=== PATIENT | female | born 1955 | race Caucasian/White ===

== ENCOUNTER → 2016-03-24 | Outpatient (CLI) | payer OTHER | LOC: MOB LAB 15:14 | PROVIDERS: ATTEND Student in an Organized Health Care Education/Training Program | DX: R10.2 Pelvic and perineal pain (principal) | CPT/HCPCS: 87077; 87088; 87186 ==

== ENCOUNTER 2016-03-30 13:54 | Inpatient (IN) | payer OTHER ==
[2016-03-30] MEDS ORDERED: MORPHINE SULFATE 2 MG/1 ML IVP ONE (14:05)
[2016-03-30] MEDS ORDERED: ONDANSETRON 4 MG/2 ML VIAL IVP ONE (14:05)
[2016-03-30] MEDS ORDERED: ASPIRIN 81 MG (BABY) CHEWABLE TABLET PO ONE ×2 (14:05→14:17)
[2016-03-30] MEDS ORDERED: LORazepam 2 MG/1 ML VIAL IVP ONE (14:05)
[2016-03-30] MEDS: NITROGLYCERIN 0.4 MG SL TAB (BOTTLE OF 3) SL ONE ×2 (14:06→14:17)
[2016-03-30] MEDS: Sodium Chloride 0.9% 1,000 ML PRIMARY IV ONE ×2 (14:06→14:50)
--- NOTE | 2016-03-30 14:11 | PDOC ---
Chest Pain HPI - General Chief Complaint: Chest Pain Stated Complaint: CHEST PAIN Date Seen by Provider: 03/30/16 Time Seen by Provider: 14:07 Source: Patient Exam Limitations: POSITIVE: No limitations Treatment Prior to Arrival: REPORTS: None Nurse's Notes Reviewed & Considered: Yes - History of Present Illness Initial Comments: Patient comes in today with substernal chest pain she describes as an elephant sitting on her chest. Patient with chest pain has been intermittent and escalating now with chest pressure that she states is approximately a 7/10 been unremitting for the last hour. She does have nausea but denies vomiting she did have an episode of diarrhea yesterday. He denies any shortness of breath, but does have cough. Body Location Affected: REPORTS: Chest Timing: REPORTS: Gradual, Intermittent, Getting Worse Duration: >24 hours Severity: Moderate Context: REPORTS: Rest, Activity, Exertion Quality: REPORTS: Pressure (States it feels like an elephant sitting on her chest.) Radiation: REPORTS: Jaw (L), Shoulder (L), Back Associated Symptoms: REPORTS: Nausea Modifying Factors: improves with: None Reported Similar Symptoms Previously: No Recently seen/treated/hospitalized: No Any Prior Injuries Related to Current Complaint?: No - Patient Home Medications Home Medications: Home Medications Lisinopril/Hydrochlorothiazide [Lisinopril-Hctz 20-12.5 Mg Tab] 1 tab PO DAILY 01/24/12 Pantoprazole Sodium [Protonix] 1 tab PO DAILY 01/24/12 Allopurinol 1 tab PO DAILY 11/06/13 Sertraline HCl [Zoloft] 1 tab PO DAILY tab 02/13/14 Dicyclomine HCl [Bentyl] 1 tab PO TID 11/20/14 Potassium Chloride [Klor-Con Tab] 1 tab PO DAILY 11/20/14 Gabapentin 1 cap PO DAILY cap 12/25/14 Oxybutynin Chloride [Oxybutynin Chloride Er] 15 mg PO DAILY tab 12/07/15 Diphenoxylate HCl/Atropine [Lomotil 2.5-0.025 Mg Tablet] 5 mg PO BID PRN #60 tab 01/15/16 Saxagliptin HCl [Onglyza] 2.5 mg PO DAILY #30 tab 01/15/16 Zolpidem Tartrate [Ambien] 1 tab PO QHS #30 12/06/16 Celecoxib [Celebrex] 1 cap PO DAILY #30 cap 03/24/16 Nitrofurantoin Macrocrystal [Nitrofurantoin] 100 mg PO BID #14 cap 03/26/16 - Patient Allergies Allergies/Adverse Reactions: Allergies Allergy/AdvReac Type Severity Reaction Status Date / Time No Known Allergies Allergy Verified 03/30/16 14:03 Past Medical History - heen HEENT History: Denies History Cardiovascular History: Hypertension, Hyperlipidemia Respiratory History: Denies History Gastrointestinal History: GERD Additional Gastrointestinal History: IRRITABLE BOWEL SYNDROME/OBESITY/DIABETIC GASTROPARESIS Genitourinary History: Recurrent UTI, Kidney Stones Endocrine History: Type 2 Diabetes (oral) Musculoskeletal History: Gout, Other (please comment) Prosthesis or Implant: Yes (LEFT HEEL SCREWS, LEFT KNEE ACL) Additional Musculoskeletal History: 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 Neurological History: Other (please comment) Additional Neurological History: PERIPHERAL SENSORY NEUROPATHY Blood Disorders: Denies History Psychiatric History: Depression, Anixety Disorders History of Sexually Transmitted Diseases: No Cancer History: Denies History History of MDRO: No History of Other Communicable Diseases: No Alcohol Use: Rarely Substance Use Type: None Previous Surgical History: Yes Type / Date of Surgery: APPY/HYSTERECTOMY/BILAT KNEE SCOPES/BILAT FOOT SX/ ACHILLES TENDON REPAIR/TONSILLECTOMY/R OOPHORECTOMY/LEFT KNEE ACL Anesthesia Reactions: No Malignant Hyperthermia: No Significant Family History: Diabetes ROS - Limitations ROS Limitations: No Limitations Constitution: REPORTS: Denies Symptoms Cardiovascular: REPORTS: Chest Pain Respiratory: REPORTS: Cough Non Productive Neurological: REPORTS: Denies Neuro Symptoms Gastrointestinal: REPORTS: Nausea Endocrine: REPORTS: Denies Symptoms Musculoskeletal: REPORTS: Denies MS Symptoms Genitourinary: REPORTS: Denies Symptoms Eyes: REPORTS: Denies Symptoms ENT: REPORTS: Denies Symptoms Skin: REPORTS: Denies Skin Symptoms Lympathic: REPORTS: Denies Lympathic Symptoms Immunologic: POSITIVE: Denies Symptoms Psychiatric: POSITIVE: Denies Psych Symptoms Chest Pain PE - General Appearance General Appearance: REPORTS: Alert, Cooperative, No Acute Distress, No Evidence of Trauma, Anxious - HEENT HEENT: POSITIVE: Head Inspection Nml, Eyes Inspection Nml, Ears Inspection Nml, Nose Inspection Nml, PERRL, EOMI - Neck Neck: REPORTS: Normal Inspection - Respiratory Respiratory: REPORTS: No Respiratory Distress, Breath Sounds Normal, Chest Non- Tender - Cardiovascular Cardiovascular: REPORTS: Regular Rate and Rhythm, Heart Sounds Normal - Abdomen Abdomen: Soft: (All Quadrants), Normal Bowel Sounds: (All Quadrants), Denies Tenderness: (All Quadrants) - Skin Skin: REPORTS: Intact, Normal For Race, Warm, Dry, No Rash - Extremities Extremity: Non-Tender: (All Extremities), Normal ROM: (All Extremities), Normal Inspection: (All Extremities) - Neurological / Psychological Neurological: POSITIVE: Affect Apporpriate, Oriented X3 Chest Pain Progress - Results Reviewed by me Xrays/CTs/US Reviewed by me: Yes Discussed with Radiologist: No Lab Results Reviewed: Yes Lab Results:: Laboratory Results 03/30/16 Range/Units 14:06 WBC 12.51 H (4.8-10.8) 10^3/uL RBC 5.91 H (4.20-5.40) 10^6/uL Hgb 17.0 H (12.0-16.0) g/dL Hct 50.8 H (37.0-47.0) % MCV 86.0 (81-99) FL MCH 28.8 (27-31) PG MCHC 33.5 (33-37) g/dL RDW Std Deviation 51.3 H (39-50) fL RDW Coeff of Madan 16.4 H (11.5-14.5) % Plt Count 345 (140-350) 10*3/uL MPV 9.3 (7.4-12.2) FL Immature Gran % (Auto) 0.4 (0-5) % Neut % (Auto) 70.6 (50-80) % Lymph % (Auto) 16.6 (10-50) % [place] % (Auto) 6.2 (5-15) % Eos % (Auto) 5.9 (0-8) % Baso % (Auto) 0.3 (0-1) % Immature Gran # (Auto) 0.05 10*3/UL Neut # (Auto) 8.82 10*3/UL Lymph # (Auto) 2.08 10*3/uL [place] # (Auto) 0.78 (0.3-0.8) 10*3/UL Eos # (Auto) 0.74 10*3/UL Baso # (Auto) 0.04 10*3/UL WBC Morphology Comment Normal morphology (NORM) Plt Morphology Comment Normal morphology (NORM) RBC Morph Comment Normal morphology (NORM) D-Dimer 0.96 H (0.00-0.59) mg/L Sodium 139 (135-145) meq/L Potassium 3.8 (3.8-5.2) meq/L Chloride 103 (98-112) meq/L Carbon Dioxide 23 (23-33) meq/L Anion Gap 13 (5-20) BUN 16 (7-22) mg/dL Creatinine 0.9 (0.50-1.20) mg/dL Estimated GFR > 60 (>60 ml/min/1.73m(2)) BUN/Creatinine Ratio 17.77 (6-20) Glucose 185 H (78-110) mg/dL Calculated Osmolality 293.0 H (267-292) mOsm/kg Calcium 9.9 (8.7-10.7) mg/dL Magnesium 1.9 (1.6-2.4) mg/dL Total Bilirubin 0.6 (0.3-1.2) mg/dL AST 19 (8-39) IU/L ALT 29 (9-52) IU/L Alkaline Phosphatase 106 (38-126) IU/L Troponin I < 0.012 (< 0.040) ng/mL Total Protein 7.5 (6.1-8.0) g/dL Albumin 4.5 (3.5-4.8) g/dL Globulin 3.1 (2.50-4.10) g/dL Albumin/Globulin Ratio 1.40 (1.3-2.0) mg/g EKG Interpreted/Reviewed By Me:: Yes (nsr) EKG Interpretation:: POSITIVE: Normal Sinus Rhythm, Normal Rate, Normal Intervals, Normal [place], Normal QRS, Normal ST/T - Patient's Progress Pain Medication Addressed: POSITIVE: Yes Re-Examine Time: 15:05 Status: POSITIVE: Improved Quality Measure Initiative: CP/AMI: POSITIVE: EKG, ASA - Consult Consult (If Yes, Name of Consulting MD & Time Called): Yes (Dr. Barrera) Consulting MD will see pt:: POSITIVE: [facility] Admit Counseled: POSITIVE: Patient, Family, RE: Lab Results, RE: Radiology Results, RE : DX Patient Care Time - Estimated PCT Patient Care Time (In Minutes): 45 Vital Signs - Recent Vital Signs Vital Signs: Vital Signs (Last 8 hours) Pulse Resp BP Pulse Ox 03/30/16 14:07 90 18 119/82 91 - VS Reviewed Vital Signs Reviewed: Yes Discharge Clinical Impression: Chest pain, Diabetes Discharge Disposition: Admit to Observation Condition: Stable Patient Instructions Given at Discharge: Chest Pain (ED) Date Decision to Admit to Inpatient: 03/30/16 Time Decision to Admit to Inpatient: 15:06
[2016-03-30 14:15] LABS: BASOPHILS # (AUTO) 0.04 10*3/UL; BASOPHILS % (AUTO) 0.3 % (0-1); EOSINOPHILS % (AUTO) 5.9 % (0-8); HEMATOCRIT 50.8 % (37.0-47.0); IMM GRAN % (AUTO) 0.4 % (0-5); IMM GRAN# (AUTO) 0.05 10*3/UL; LYMPHOCYTES # (AUTO) 2.08 10*3/uL; LYMPHOCYTES % (AUTO) 16.6 % (10-50); MEAN CORPUSCULAR HEMOGLOBIN 28.8 PG (27-31); MEAN CORPUSCULAR HGB CONC 33.5 g/dL (33-37); MEAN PLATELET VOLUME 9.3 FL (7.4-12.2); MONOCYTES # (AUTO) 0.78 10*3/UL (0.3-0.8); MONOCYTES % (AUTO) 6.2 % (5-15); NEUTROPHILS # (AUTO) 8.82 10*3/UL; NEUTROPHILS % (AUTO) 70.6 % (50-80); RDW COEFFICIENT OF VARIATION 16.4 % (11.5-14.5); RED BLOOD COUNT 5.91 10^6/uL (4.20-5.40); WHITE BLOOD COUNT 12.51 10^3/uL (4.8-10.8)
[2016-03-30 14:17] LABS: PLATELET MORPHOLOGY COMMENT NORMAL MORPHOLOGY (NORM)
[2016-03-30] MEDS ORDERED: NITROGLYCERIN 0.4 MG SL TAB (BOTTLE OF 3) SL ONE (14:33)
[2016-03-30 14:35] LABS: ASPARTATE AMINO TRANSFERASE 19 IU/L (8-39); BILIRUBIN,TOTAL 0.6 mg/dL (0.3-1.2); BLOOD UREA NITROGEN 16 mg/dL (7-22); BUN/CREATININE RATIO 17.77 (6-20); CALCIUM 9.9 mg/dL (8.7-10.7); CHLORIDE 103 meq/L (98-112); CREATININE 0.9 mg/dL (0.50-1.20); EST GLOMERULAR FILTRATION > 60 (>60 ml/min/1.73m(2)); GLUCOSE 185 mg/dL (78-110); MAGNESIUM 1.9 mg/dL (1.6-2.4); POTASSIUM 3.8 meq/L (3.8-5.2); SODIUM 139 meq/L (135-145); TOTAL PROTEIN 7.5 g/dL (6.1-8.0)
[2016-03-30 14:51] LABS: FREE T4 (FREE THYROXINE) 1.27 ng/dL (0.93-1.71)
[2016-03-30 15:03] LABS: PROTHROMBIN TIME 9.4 secs (9.7-11.4)
--- NOTE | 2016-03-30 15:19 | PDOC ---
History and Physical - History of Present Illness History of Present Illness: This very nice 60-year-old female with past medical history significant for diabetes and gout comes to the ER today because of the chest pain which is described as an elephant sitting on her chest is been intermittent over the last few days but now is getting worse and the was 7 out of 10 when she was seen in the ER and then improved positive nausea no radiating to arm jaw or neck CT scan was negative for pulmonary embolus or pneumonia but did show pulmonary hypertension she is been complaining of nausea and pain in the epigastric area especially when she eats fatty foods this could also be related to gallbladder disease Past Medical History Medical History: 1. Hypertension. 2. Diabetes. 3. Gout. 4. Peripheral neuropathy Surgical History: 1. Hysterectomy. 2. Arthroscopic knee surgeries. 3. Tonsillectomy. 4. Appendectomy. 5. Unilateral oophorectomy. 6. Achilles tendon repair Pertinent Family History: Father had myocardial infarction Tobacco Use: Current Every Day Smoker Substance Use Type: None Medication / Allergies Home Medications: Home Medications Medication Instructions Recorded Confirmed Type Lisinopril/Hydrochlorothiazide 1 tab PO DAILY 01/24/12 03/30/16 History [Lisinopril-Hctz 20-12.5 Mg Tab] Pantoprazole Sodium [Protonix] 1 tab PO DAILY 01/24/12 03/30/16 History Allopurinol 1 tab PO DAILY 11/06/13 03/30/16 History Sertraline HCl [Zoloft] 1 tab PO DAILY tab 02/13/14 03/30/16 History Dicyclomine HCl [Bentyl] 1 tab PO TID 11/20/14 03/30/16 History Potassium Chloride [Klor-Con Tab] 1 tab PO DAILY 11/20/14 03/30/16 History Gabapentin 1 cap PO DAILY cap 12/25/14 03/30/16 History Oxybutynin Chloride [Oxybutynin 15 mg PO DAILY tab 12/07/15 03/30/16 History Chloride Er] Diphenoxylate HCl/Atropine 5 mg PO BID PRN #60 tab 01/15/16 03/30/16 Clinic [Lomotil 2.5-0.025 Mg Tablet] Saxagliptin HCl [Onglyza] 2.5 mg PO DAILY #30 tab 01/15/16 03/30/16 Clinic Zolpidem Tartrate [Ambien] 1 tab PO QHS #30 02/05/16 03/30/16 [facility] Celecoxib [Celebrex] 1 cap PO DAILY #30 cap 03/24/16 03/30/16 [facility] Nitrofurantoin Macrocrystal 100 mg PO BID #14 cap 03/26/16 03/30/16 Clinic [Nitrofurantoin] Allergies/Adverse Reactions: Allergies Allergy/AdvReac Type Severity Reaction Status Date / Time No Known Allergies Allergy Verified 03/30/16 14:03 Review of Systems - Review of Systems All Systems: Reviewed & No Additional Complaints Except as Stated - Cardiovascular Cardiovascular: REPORTS: Chest Pain. DENIES: Syncope, Palpitations, Paroxysmal Nocturnal Dyspnea - Gastrointestinal Gastrointestinal / Abdominal: REPORTS: Nausea. DENIES: Vomiting - Genitourinary Genitourinary: DENIES: Negative System Review, Pain, Burning, Hematuria, Incontinence, Urgency, Hesitant Stream, Decreased Stream, Nocutria, Discharge, Sexual Dyfunction, Other, See HPI - Neurological Neurologic: DENIES: Negative System Review, Headache, Numbness/Paresthesia, Tremors, Weakness, Seizures, Head Trauma, LOC, Dizziness, Confusion, Memory Loss , Difficulty Walking, Incoordination, Other, See HPI Exam - Vitals Vital Signs: Vital Signs Pulse Rate [Telemetry] 90 Respiratory Rate 18 Blood Pressure [Left Arm] 119/82 Pulse Ox 91 Oxygen Delivery Method Room Air Height 5 ft 2 in Weight 104.326 kg - General General Appearance: POSITIVE: No Acute Distress, Cooperative - Head Head Exam: POSITIVE: Normal Inspection, Normocephalic - Eye Eye Exam: POSITIVE: Normal Appearance - Respiratory Respiratory Exam: POSITIVE: Clear to Auscultation - Bilaterally, Breathing Non Labored, Normal To Percussion - Cardiovascular Cardiovascular Exam: POSITIVE: RRR, No Murmur, No Clicks, No Gallops - GI/Abdominal GI/Abdominal Exam: POSITIVE: Normal Bowel Sounds, Non Distended, Soft - Extremities Extremities Exam: POSITIVE: No Clubbing Present, No Edema Present, No Cyanosis Present - Neurological Neurological Exam: POSITIVE: Alert, Oriented x 3, CN II-XII Intact, No Facial Droop - Psychiatric Psychiatric Exam: POSITIVE: Normal Affect, Normal Mood Results - Labs CBC and BMP: 03/30/16 14:06 03/30/16 14:06 Labs - Last 24 Hours: Laboratory Results 03/30/16 03/30/16 Range/Units 13:30 14:06 WBC 12.51 H (4.8-10.8) 10^3/uL RBC 5.91 H (4.20-5.40) 10^6/uL Hgb 17.0 H (12.0-16.0) g/dL Hct 50.8 H (37.0-47.0) % MCV 86.0 (81-99) FL MCH 28.8 (27-31) PG MCHC 33.5 (33-37) g/dL RDW Std Deviation 51.3 H (39-50) fL RDW Coeff of Madan 16.4 H (11.5-14.5) % Plt Count 345 (140-350) 10*3/uL MPV 9.3 (7.4-12.2) FL Immature Gran % (Auto) 0.4 (0-5) % Neut % (Auto) 70.6 (50-80) % Lymph % (Auto) 16.6 (10-50) % [place] % (Auto) 6.2 (5-15) % Eos % (Auto) 5.9 (0-8) % Baso % (Auto) 0.3 (0-1) % Immature Gran # (Auto) 0.05 10*3/UL Neut # (Auto) 8.82 10*3/UL Lymph # (Auto) 2.08 10*3/uL [place] # (Auto) 0.78 (0.3-0.8) 10*3/UL Eos # (Auto) 0.74 10*3/UL Baso # (Auto) 0.04 10*3/UL WBC Morphology Comment Normal morphology (NORM) Plt Morphology Comment Normal morphology (NORM) RBC Morph Comment Normal morphology (NORM) PT 9.4 L (9.7-11.4) secs INR 0.91 (0.00-5.90) N/A D-Dimer 0.96 H (0.00-0.59) mg/L Sodium 139 (135-145) meq/L Potassium 3.8 (3.8-5.2) meq/L Chloride 103 (98-112) meq/L Carbon Dioxide 23 (23-33) meq/L Anion Gap 13 (5-20) BUN 16 (7-22) mg/dL Creatinine 0.9 (0.50-1.20) mg/dL Estimated GFR > 60 (>60 ml/min/1.73m(2)) BUN/Creatinine Ratio 17.77 (6-20) Glucose 185 H (78-110) mg/dL Calculated Osmolality 293.0 H (267-292) mOsm/kg Calcium 9.9 (8.7-10.7) mg/dL Magnesium 1.9 (1.6-2.4) mg/dL Total Bilirubin 0.6 (0.3-1.2) mg/dL AST 19 (8-39) IU/L ALT 29 (9-52) IU/L Alkaline Phosphatase 106 (38-126) IU/L Troponin I < 0.012 (< 0.040) ng/mL Total Protein 7.5 (6.1-8.0) g/dL Albumin 4.5 (3.5-4.8) g/dL Globulin 3.1 (2.50-4.10) g/dL Albumin/Globulin Ratio 1.40 (1.3-2.0) mg/g TSH 5.37 H (0.2700-4.2000) uIU/mL Free T4 1.27 (0.93-1.71) ng/dL Assessment and Plan - Patient Problems (1) Chest pain Current Visit: Yes Status: Acute (2) Diabetes Current Visit: Yes Status: Acute (3) History of gout Current Visit: No Status: Acute (4) History of neuropathy Current Visit: No Status: Acute (5) Hypertension Current Visit: No Status: Acute - Assessment / Plan Additional Assessment/Plan Details: Chest painvery suggestive for coronary artery disease considering risk factors of diabetes and hypertension we will admit her for rule out order nuclear stress test for tomorrow if she rules out and also on echocardiogram because of her pulmonary hypertension finding on CT scan differential is gallbladder disease she does hurt epigastric area on physical exam I will order a CAT scan of her abdomen and pelvis later tonight we will hydrate her first since she got already contrast for the CT scan of the chest Diabetes continue usual medication check hemoglobin A1c Gout continue allopurinol She is on nitrofurantoin I will try to figure out why we will hold for now
--- NOTE | 2016-03-30 15:56 | DI ---
HISTORY: Chest pain with elevated d-dimer. COMPARISON: None. TECHNIQUE: Standard CT pulmonary angiogram axial and coronal reformatted images from the level the a ortic arch through the dome of the diaphragm with maximal contrast opacification of the pulmonary art eries. 342 images. FINDINGS: No large or occlusive pulmonary artery embolus identified. The right and left main pulmon jass artery are enlarged. No thoracic aortic aneurysm or dissection present. No evidence of right he art strain. The heart and pericardium are unremarkable. Prominent mediastinal and hilar lymphadenopathy is present, with large nodes seen in the AP window, r ight upper paratracheal station and right lung hilum. No axillary adenopathy seen. The lungs are clear with no focal airspace mass, consolidation or pneumothorax. No pleural effusions are present. Proximal airways are clear with no evident thickening or bronchiectasis. The liver is hypoattenuating. The remainder of the visualized abdominal organs are unremarkable. Mild senescent changes of the thoracic spine are present. The osseous structures are unremarkable wi thout fracture. IMPRESSION: 1. No evidence of acute pulmonary artery embolus. 2. Findings are suggestive of pulmonary artery hypertension. Recommend pulmonology consultation. 3. Nonspecific enlarged mediastinal and right hilar lymphadenopathy. No evidence of pulmonary parenc hymal mass or airspace consolidation. Recommend routine clinical follow up to evaluate for underlyin g systemic infectious, inflammatory or neoplastic cause.
[2016-03-30] MEDS ORDERED: NITROGLYCERIN 0.4 MG SL TAB (BOTTLE OF 3) SL PRN ×2 (16:17→19:01)
[2016-03-30] MEDS ORDERED: CALCIUM CARBONATE 500 MG (TUMS) CHEWABLE TABLET PO PRN (16:17)
[2016-03-30] MEDS ORDERED: ZOLPIDEM 10 MG TABLET PO SCH (16:17)
[2016-03-30] MEDS ORDERED: ONDANSETRON 4 MG/2 ML VIAL IVP PRN (16:17)
--- NOTE | 2016-03-30 16:25 | DI ---
HISTORY: Chest pain. COMPARISON: Pulmonary artery CT from earlier the same day (03/30/2016). FINDINGS: Portable chest radiograph, compared to CT PA performed the same day, demonstrates the lung s to be adequately expanded without evidence of pneumothorax, pleural effusion, or focal airspace mas s or consolidation. The cardiac silhouette appears enlarged, possibly related to technique. The pro ximal pulmonary vascularity is also enlarged. No acute bony abnormality is seen. IMPRESSION: 1. No evidence of mass or airspace consolidation. Suggestion of enlarged cardiac silhouette may be i n part related to technique. Enlarged bilateral proximal pulmonary arteries, which may be seen in th e clinical setting of pulmonary artery hypertension. For persistent concern, consider PA and lateral chest radiographs.
[2016-03-30] MEDS: HEPARIN 5000 UNIT/1 ML SUBCUT SCH (17:47)
--- NOTE | 2016-03-30 19:04 | EKG ---
[address] [place] [id number] Measurements Intervals [place] Rate: 90 P: 21 [place]: 167 QRS: 26 QRSD: 85 T: 53 QT: 366 QTc: 414 Interpretive Statements SINUS RHYTHM INTERPRETATION BASED ON A DEFAULT AGE OF 40 YEARS Compared to ECG 01/11/2016 13:15:13 Myocardial infarct finding no longer present and no acute injury pattern. Electronically Signed On 03-31-16 08:25:12 MST by Yassine Griffin MD [email or web address]
--- NOTE | 2016-03-30 20:04 | EKG ---
[address] [place] [address] Measurements Intervals [place] Rate: 84 P: 25 [place]: 175 QRS: 29 QRSD: 82 T: 67 QT: 376 QTc: 417 Interpretive Statements SINUS RHYTHM NONSPECIFIC T-WAVE ABNORMALITY (consider hypokalemia or hypocalcemia or ischemia) Compared to ECG 03/30/2016 14:00:46 T-wave abnormality now present Electronically Signed On 03-31-16 08:26:19 MST by Yassine Griffin MD [email or web address]
[2016-03-30] MEDS: ZOLPIDEM 10 MG TABLET PO SCH (21:25)
[2016-03-30] MEDS: DICYCLOMINE 20 MG TABLET PO SCH (21:25)
--- NOTE | 2016-03-30 22:46 | DI ---
HISTORY: Upper abdominal pain. TECHNIQUE: Contiguous transaxial computed tomographic images were obtained of the abdomen and pelvis per routine protocol with IV contrast. Coronal and sagittal reformat images were performed. COMPARISON: None. FINDINGS: LUNG BASES: There is ground glass opacity within the lower lobes with interlobular septal thickening . INFERIOR MEDIASTINUM: Unremarkable. LIVER: Hepatic steatosis. GALLBLADDER AND BILE DUCTS: Gallbladder is normal in appearance with no gallbladder wall thickening or pericholecystic fluid. No biliary dilatation. SPLEEN: Normal in size and attenuation with no focal abnormalities. PANCREAS: Normal in size and attenuation with no focal abnormalities. ADRENALS: There is a 1.7cm left adrenal mass which is likely an adrenal adenoma. : There is a 1.3cm low density lesion within the right kidney which is likely a cyst. No evidence of urinary obstruction or obstructing urinary calculi. Ureters are normal throughout their course. Urinary bladder is within normal limits. GI: There is diverticulosis of the colon without diverticulitis. No evidence of bowel obstruction or focal inflammation. No focal bowel wall thickening. No findings to suggest appendicitis. PELVIS: There are mildly enlarged pelvic side wall lymph nodes. VESSELS: Aorta is normal in size with no evidence of aneurysm or rupture. BONES: No acute bony abnormality. No suspicious osteolytic or osteoblastic lesion. SOFT TISSUES: Unremarkable. IMPRESSION: 1. No acute abdominal or pelvic process identified. 2. There is diverticulosis of the colon without diverticulitis. 3. Left adrenal nodule is likely an adenoma. 4. Hepatic steatosis. 5. Probable lower lobe pulmonary edema. NOTIFICATION: The above findings were phoned to Karena Mccarthy in the ER Department on 03/31/2016 a t 12:51am EST.
[2016-03-31] MEDS: GABAPENTIN 300 MG CAPSULE PO SCH ×2 (00:34→20:50)
[2016-03-31] MEDS: HEPARIN 5000 UNIT/1 ML SUBCUT SCH ×4 (00:34→23:48)
[2016-03-31] MEDS: Sertraline Tab 50 MG TAB PO SCH ×2 (00:34→20:49)
[2016-03-31 01:19] LABS: CARDIAC CK 29 IU/L (30-135)
[2016-03-31 01:33] LABS: TROPONIN I < 0.012 ng/mL (< 0.040)
[2016-03-31 06:25] LABS: BASOPHILS # (AUTO) 0.03 10*3/UL; BASOPHILS % (AUTO) 0.3 % (0-1); EOSINOPHILS % (AUTO) 6.8 % (0-8); HEMATOCRIT 47.6 % (37.0-47.0); IMM GRAN % (AUTO) 0.5 % (0-5); IMM GRAN# (AUTO) 0.06 10*3/UL; LYMPHOCYTES # (AUTO) 1.54 10*3/uL; LYMPHOCYTES % (AUTO) 13.8 % (10-50); MEAN CORPUSCULAR HEMOGLOBIN 27.8 PG (27-31); MEAN CORPUSCULAR HGB CONC 31.5 g/dL (33-37); MEAN PLATELET VOLUME 9.5 FL (7.4-12.2); MONOCYTES # (AUTO) 0.75 10*3/UL (0.3-0.8); MONOCYTES % (AUTO) 6.7 % (5-15); NEUTROPHILS # (AUTO) 8.03 10*3/UL; NEUTROPHILS % (AUTO) 71.9 % (50-80); RDW COEFFICIENT OF VARIATION 16.4 % (11.5-14.5); RED BLOOD COUNT 5.39 10^6/uL (4.20-5.40); WHITE BLOOD COUNT 11.17 10^3/uL (4.8-10.8)
[2016-03-31 06:32] LABS: PLATELET MORPHOLOGY COMMENT NORMAL MORPHOLOGY (NORM)
[2016-03-31 06:37] LABS: ASPARTATE AMINO TRANSFERASE 12 IU/L (8-39); BILIRUBIN,TOTAL 0.3 mg/dL (0.3-1.2); BLOOD UREA NITROGEN 14 mg/dL (7-22); BUN/CREATININE RATIO 15.55 (6-20); CALCIUM 9.4 mg/dL (8.7-10.7); CHLORIDE 106 meq/L (98-112); CREATININE 0.9 mg/dL (0.50-1.20); EST GLOMERULAR FILTRATION > 60 (>60 ml/min/1.73m(2)); GLUCOSE 133 mg/dL (78-110); HDL CHOLESTEROL 32 mg/dL (40-150); POTASSIUM 4.6 meq/L (3.8-5.2); SODIUM 140 meq/L (135-145); TOTAL PROTEIN 5.8 g/dL (6.1-8.0)
[2016-03-31 06:51] LABS: TRIGLYCERIDES 476 mg/dL (44-200)
[2016-03-31 08:56] LABS: HEMOGLOBIN A1C 7.91 % (4.2-6.0); MEAN BLOOD GLUCOSE (CALC) 177.403 mg/dL
[2016-03-31] MEDS ORDERED: Sertraline Tab 50 MG TAB PO SCH (09:00)
[2016-03-31] MEDS ORDERED: GABAPENTIN 300 MG CAPSULE PO SCH (09:00)
[2016-03-31] MEDS ORDERED: OXYBUTYNIN CHLORIDE 15 MG PO SCH (09:00)
[2016-03-31] MEDS: HYDROCHLOROTHIAZIDE 12.5 MG CAPSULE PO SCH (09:39)
[2016-03-31] MEDS: LISINOPRIL 20 MG TABLET PO SCH (09:39)
[2016-03-31] MEDS: PANTOPRAZOLE 40 MG TABLET PO SCH (09:39)
[2016-03-31] MEDS: DICYCLOMINE 20 MG TABLET PO SCH ×2 (09:40→15:09)
[2016-03-31] MEDS: ALLOPURINOL 300 MG TABLET PO SCH (09:40)
[2016-03-31] MEDS: Potassium Chloride Tab 10 MEQ TAB PO SCH (09:40)
--- NOTE | 2016-03-31 11:09 | PDOC(PROG) ---
Interval History: No chest pain today no shortness of breath CT scan of the abdomen and pelvis showed no gallbladder disease she does state that she had the UTI before she came into the hospital they were treating her with nitrofurantoin but this was not helping at all and the burning continued and it still funes when she urinates. Chest pain resolved stress test in progress Objective : Data - Labs CBC and BMP: 03/31/16 06:05 03/31/16 06:05 Labs - Last 24 Hours: Laboratory Results 03/30/16 03/31/16 03/31/16 Range/Units 19:08 01:11 05:00 WBC (4.8-10.8) 10^3/uL RBC (4.20-5.40) 10^6/uL Hgb (12.0-16.0) g/dL Hct (37.0-47.0) % MCV (81-99) FL MCH (27-31) PG MCHC (33-37) g/dL RDW Std Deviation (39-50) fL RDW Coeff of Madan (11.5-14.5) % Plt Count (140-350) 10*3/uL MPV (7.4-12.2) FL Immature Gran % (Auto) (0-5) % Neut % (Auto) (50-80) % Lymph % (Auto) (10-50) % [place] % (Auto) (5-15) % Eos % (Auto) (0-8) % Baso % (Auto) (0-1) % Immature Gran # (Auto) 10*3/UL Neut # (Auto) 10*3/UL Lymph # (Auto) 10*3/uL [place] # (Auto) (0.3-0.8) 10*3/UL Eos # (Auto) 10*3/UL Baso # (Auto) 10*3/UL WBC Morphology Comment (NORM) Plt Morphology Comment (NORM) RBC Morph Comment (NORM) D-Dimer (0.00-0.59) mg/L Sodium (135-145) meq/L Potassium (3.8-5.2) meq/L Chloride (98-112) meq/L Carbon Dioxide (23-33) meq/L Anion Gap (5-20) BUN (7-22) mg/dL Creatinine (0.50-1.20) mg/dL Estimated GFR (>60 ml/min/1.73m(2)) BUN/Creatinine Ratio (6-20) Glucose (78-110) mg/dL Mean Blood Glucose 177.403 mg/dL Hemoglobin A1c 7.91 H (4.2-6.0) % Calculated Osmolality (267-292) mOsm/kg Calcium (8.7-10.7) mg/dL Total Bilirubin (0.3-1.2) mg/dL AST (8-39) IU/L ALT (9-52) IU/L Alkaline Phosphatase (38-126) IU/L Total Creatine Kinase 29 L (30-135) IU/L Troponin I < 0.012 < 0.012 (< 0.040) ng/mL NT-Pro-B Natriuret Pep (0-125) PG/ML Total Protein (6.1-8.0) g/dL Albumin (3.5-4.8) g/dL Globulin (2.50-4.10) g/dL Albumin/Globulin Ratio (1.3-2.0) mg/g Triglycerides (44-200) mg/dL Cholesterol (120-200) mg/dL LDL Cholesterol, Calc mg/dL VLDL Cholesterol (0-40) mg/dL HDL Cholesterol (40-150) mg/dL Cholesterol/HDL Ratio (0-4.0) RATIO 03/31/16 Range/Units 06:05 WBC 11.17 H (4.8-10.8) 10^3/uL RBC 5.39 (4.20-5.40) 10^6/uL Hgb 15.0 (12.0-16.0) g/dL Hct 47.6 H (37.0-47.0) % MCV 88.3 (81-99) FL MCH 27.8 (27-31) PG MCHC 31.5 L (33-37) g/dL RDW Std Deviation 52.1 H (39-50) fL RDW Coeff of Madan 16.4 H (11.5-14.5) % Plt Count 316 (140-350) 10*3/uL MPV 9.5 (7.4-12.2) FL Immature Gran % (Auto) 0.5 (0-5) % Neut % (Auto) 71.9 (50-80) % Lymph % (Auto) 13.8 (10-50) % [place] % (Auto) 6.7 (5-15) % Eos % (Auto) 6.8 (0-8) % Baso % (Auto) 0.3 (0-1) % Immature Gran # (Auto) 0.06 10*3/UL Neut # (Auto) 8.03 10*3/UL Lymph # (Auto) 1.54 10*3/uL [place] # (Auto) 0.75 (0.3-0.8) 10*3/UL Eos # (Auto) 0.76 10*3/UL Baso # (Auto) 0.03 10*3/UL WBC Morphology Comment Normal morphology (NORM) Plt Morphology Comment Normal morphology (NORM) RBC Morph Comment Normal morphology (NORM) D-Dimer 0.71 H (0.00-0.59) mg/L Sodium 140 (135-145) meq/L Potassium 4.6 (3.8-5.2) meq/L Chloride 106 (98-112) meq/L Carbon Dioxide 24 (23-33) meq/L Anion Gap 10 (5-20) BUN 14 (7-22) mg/dL Creatinine 0.9 (0.50-1.20) mg/dL Estimated GFR > 60 (>60 ml/min/1.73m(2)) BUN/Creatinine Ratio 15.55 (6-20) Glucose 133 H (78-110) mg/dL Mean Blood Glucose mg/dL Hemoglobin A1c (4.2-6.0) % Calculated Osmolality 292.0 (267-292) mOsm/kg Calcium 9.4 (8.7-10.7) mg/dL Total Bilirubin 0.3 (0.3-1.2) mg/dL AST 12 (8-39) IU/L ALT 28 (9-52) IU/L Alkaline Phosphatase 87 (38-126) IU/L Total Creatine Kinase (30-135) IU/L Troponin I < 0.012 (< 0.040) ng/mL NT-Pro-B Natriuret Pep 48.5 (0-125) PG/ML Total Protein 5.8 L (6.1-8.0) g/dL Albumin 3.5 (3.5-4.8) g/dL Globulin 2.3 L (2.50-4.10) g/dL Albumin/Globulin Ratio 1.50 (1.3-2.0) mg/g Triglycerides 476 H (44-200) mg/dL Cholesterol 213 H (120-200) mg/dL LDL Cholesterol, Calc 85.800 mg/dL VLDL Cholesterol 95 H (0-40) mg/dL HDL Cholesterol 32 L (40-150) mg/dL Cholesterol/HDL Ratio 6.65 H (0-4.0) RATIO Objective : Exam - General General Appearance: Cooperative - Respiratory Respiratory Exam: Clear to Auscultation - Bilaterally, Breathing Non Labored, Normal To Percussion - Cardiovascular Cardiovascular Exam: RRR, No Murmur, No Clicks - GI/Abdominal GI/Abdominal Exam: Non Tender, Non Distended, Soft - Extremities Extremities Exam: No Clubbing Present, No Edema Present - Neurological Neurological Exam: Alert, Oriented x 3 Assessment and Plan - Patient Problems (1) Chest pain Current Visit: Yes Status: Acute (2) Diabetes Current Visit: Yes Status: Acute (3) History of gout Current Visit: No Status: Acute (4) History of neuropathy Current Visit: No Status: Acute (5) Hypertension Current Visit: No Status: Acute - Assessment / Plan Additional Assessment/Plan Details: Chest painthis could represent coronary artery disease stress test in progress negative troponins negative BnP Diabeteshemoglobin A1c 7.9 Dyslipidemia elevated triglycerides around 400 Generalized weakness consult PTOT Hypertensioncontinue current meds
[2016-03-31] MEDS: MORPHINE SULFATE 2 MG/1 ML IV PRN ×3 (12:37→23:48)
[2016-03-31] MEDS: SAXAGLIPTIN HCL 2.5 MG PO SCH ×2 (12:41→14:45)
[2016-03-31] MEDS: cefTRIAXone Inj 2 GM in Sodium Chloride 0.9% 100 ML IV SCH (14:43)
[2016-03-31] MEDS: OXYBUTYNIN CHLORIDE 10 MG PO SCH (14:45)
[2016-03-31] MEDS ORDERED: DICYCLOMINE 20 MG TABLET PO PRN (15:16)
[2016-03-31] MEDS ORDERED: KETOROLAC 15 MG/1 ML VIAL IVP SCH (17:30)
[2016-03-31] MEDS: KETOROLAC 15 MG/1 ML VIAL IVP PRN (18:41)
[2016-03-31] MEDS: NORMAL SALINE 10 ML SYRINGE FLUSH IVP PRN ×2 (19:57→23:49)
[2016-03-31] MEDS: ZOLPIDEM 10 MG TABLET PO SCH (20:49)
[2016-04-01 05:57] LABS: BASOPHILS # (AUTO) 0.03 10*3/UL; BASOPHILS % (AUTO) 0.3 % (0-1); EOSINOPHILS % (AUTO) 8.5 % (0-8); HEMATOCRIT 45.3 % (37.0-47.0); HEMOGLOBIN 14.4 g/dL (12.0-16.0); IMM GRAN % (AUTO) 0.6 % (0-5); IMM GRAN# (AUTO) 0.07 10*3/UL; LYMPHOCYTES # (AUTO) 2.25 10*3/uL; MEAN CORPUSCULAR HGB CONC 31.8 g/dL (33-37); MEAN PLATELET VOLUME 9.5 FL (7.4-12.2); MONOCYTES # (AUTO) 0.96 10*3/UL (0.3-0.8); MONOCYTES % (AUTO) 8.5 % (5-15); NEUTROPHILS % (AUTO) 62.1 % (50-80); RDW COEFFICIENT OF VARIATION 16.3 % (11.5-14.5); RED BLOOD COUNT 5.15 10^6/uL (4.20-5.40); WHITE BLOOD COUNT 11.27 10^3/uL (4.8-10.8)
[2016-04-01 06:01] LABS: PLATELET MORPHOLOGY COMMENT NORMAL MORPHOLOGY (NORM)
[2016-04-01 06:12] LABS: ASPARTATE AMINO TRANSFERASE 15 IU/L (8-39); BILIRUBIN,TOTAL 0.3 mg/dL (0.3-1.2); BLOOD UREA NITROGEN 20 mg/dL (7-22); BUN/CREATININE RATIO 22.22 (6-20); CALCIUM 9.2 mg/dL (8.7-10.7); CHLORIDE 104 meq/L (98-112); CREATININE 0.9 mg/dL (0.50-1.20); EST GLOMERULAR FILTRATION > 60 (>60 ml/min/1.73m(2)); GLUCOSE 133 mg/dL (78-110); POTASSIUM 4.6 meq/L (3.8-5.2); SODIUM 138 meq/L (135-145)
--- NOTE | 2016-04-01 10:00 | STRESSTEST ---
[facility] Interpretive Statements This is 60 YO female with several risk factors for heart disease, including smoking, DMII, HTN, high cholesterol, and family history of heart disease. PResented with chest pain and ruled out for LA. Now [place] scan stress test being done. Obesity too severe to do treadmill. Resting EKG, NSR. [place] scan stress test done and patient had some SOB, abdominal pain, all of which resolved. Some noise on tracing, but no major issues noted otherwise. Plan: review resting and stress images with radiology. [email or web address]
[2016-04-01] MEDS: HEPARIN 5000 UNIT/1 ML SUBCUT SCH ×2 (10:03→16:28)
[2016-04-01] MEDS: SAXAGLIPTIN HCL 2.5 MG PO SCH (10:03)
[2016-04-01] MEDS: PANTOPRAZOLE 40 MG TABLET PO SCH (10:04)
[2016-04-01] MEDS: ALLOPURINOL 300 MG TABLET PO SCH (10:04)
[2016-04-01] MEDS: HYDROCHLOROTHIAZIDE 12.5 MG CAPSULE PO SCH (10:04)
[2016-04-01] MEDS: Potassium Chloride Tab 10 MEQ TAB PO SCH (10:04)
[2016-04-01] MEDS: LISINOPRIL 20 MG TABLET PO SCH (10:04)
[2016-04-01] MEDS: OXYBUTYNIN CHLORIDE 10 MG PO SCH (10:04)
[2016-04-01 11:20] LABS: AMYLASE < 30 U/L (30-110)
[2016-04-01] MEDS ORDERED: CEPHALEXIN 500 MG CAPSULE PO ONE (11:26)
[2016-04-01] MEDS: cefTRIAXone Inj 2 GM in Sodium Chloride 0.9% 100 ML IV SCH (11:31)
[2016-04-01] MEDS: MORPHINE SULFATE 2 MG/1 ML IV PRN (11:45)
--- NOTE | 2016-04-01 15:52 | DI ---
2 DAY LEXISCAN STRESS & REST MYOCARDIAL PERFUSION SCANS, 03/31/2016-04/01/2016: Clinical History: Chest pain. Diabetes mellitus type 2, hypertension, smoker. Previous Exam: None at this facility. Monitoring Physician: Dr. Marcus Mohan. Dose: Stress dose: 36 mCi on 04/01/2016. Rest dose: 36 mCi on 03/31/2016. Quantitative Analysis: Edventures program with low dose limited CT chest scan attenuation correctio n. Exam Quality: Excellent. Rejected Beats: Stress = 0%; Rest = 2%. HR: Stress = 75-83 b/m; Rest = 61-6 8 b/m. Left ventricular chamber sizes are normal at stress and rest. Transient ischemic dilatation ratio is 0.80 (normal Marshall TID <= 1.22; normal Lexiscan TID <= 1.33). Stress LVEF: 80%; rest LVEF: 80%. Atten uated and attenuated scans show normal stress and rest myocardial perfusion, wall motion, and thicken ing. Limited CT scans of the heart show calcifications in the proximal and middle thirds of the LAD, in the proximal portion of the left circumflex artery, and in the proximal half of the right coronary artery. There are no lung nodules or enlarged nodes. Readin. Normal stress and rest left ventricular chamber size. Transient ischemic dilatation ratio is norm al at 0.80. 2. Normal stress and rest LVEF values of 80% each. 3. Normal stress and rest myocardial perfusion, wall motion, and thickening. 4. Coronary artery disease manifested by calcifications in the LAD, left circumflex artery, and the right coronary artery. No pulmonary nodules or adenopathy are identified.
[2016-04-01] MEDS: GEMFIBROZIL 600 MG TABLET PO SCH (16:28)
[2016-04-01 17:09] LABS: ABG BASE EXCESS -3 MMOL/L (-2-2); ABG HCO3 22 (22-26); ABG OXYGEN SATURATION 94 % (90-100); ABG PH 7.41 (7.35-7.45); ABG TCO2 23 MMOL/L (23-27); ALLEN TEST Y; COLLECTION SITE L RADIAL
[2016-04-01] MEDS: GABAPENTIN 300 MG CAPSULE PO SCH (20:47)
[2016-04-01] MEDS: Sertraline Tab 50 MG TAB PO SCH (20:47)
[2016-04-01] MEDS: ZOLPIDEM 10 MG TABLET PO SCH (20:47)
[2016-04-01] MEDS: HYDROcodone-APAP 7.5 MG-325 MG TABLET PO PRN (20:47)
[2016-04-01] MEDS: CEPHALEXIN 500 MG CAPSULE PO SCH (20:48)
[2016-04-01] MEDS ORDERED: LIDOCAINE HCL/PF 1% (10 MG/1 ML) - 2 ML AMP SUBCUT ONE (20:58)
[2016-04-01] MEDS ORDERED: [UNRECOGNIZED DRUG - OTHER] IM ONE (21:00)
[2016-04-01] MEDS ORDERED: ROPIVACAINE 0.2% IM ONE (21:00)
[2016-04-01] MEDS ORDERED: Lidocaine 1% 10 MG/ML - 20 ML VIAL SUBCUT ONE (21:24)
--- NOTE | 2016-04-01 22:53 | PDOC(PROG) ---
Date and Time of Service: 04/01/2016, 10:49 PM Interval History: Patient denies any chest pain. She states that she has continued abdominal pain that is vague and in the lower quadrants and stated that it felt like cramping related to a period. She had a hysterectomy in the past and denies any vaginal bleeding. She also complains of knee pain on the right side, and states that she's had long-standing knee pain for which she takes anti- inflammatories 4. She has been taking upwards of 16-20 ibuprofen per day. She states Aleve tears of her stomach. She also notes that her insurance has had some issues with medication prescription coverage and she was not able to afford her Celebrex which did not seem to give her abdominal pain. She is on a proton pump inhibitor daily and does not have any blood in her bowel movements. She notes that she's had intermittent, chronic diarrhea for upwards of the last 8 years with a colonoscopy in the past. She was told she had irritable bowel syndrome. Bentyl has been used but has not been controlling abdominal pain. The CT scan was negative for any acute intra-abdominal pathology. The patient overall is frustrated as she felt that she came in for complaints of abdominal pain but had a stress test worked up. She has pulmonary hypertension based on her workup thus far, probably related to sleep apnea which is undiagnosed at this time. Objective : Data - Labs CBC and BMP: 04/01/16 05:20 04/01/16 05:20 Labs - Last 24 Hours: Laboratory Results 04/01/16 Range/Units 16:54 ABG pH 7.41 (7.35-7.45) ABG pCO2 34 (34-38) MMHG ABG pO2 70 (65-75) MMHG ABG HCO3 22 (22-26) ABG Total CO2 23 (23-27) MMOL/L ABG O2 Saturation 94 (90-100) % ABG Base Excess -3 L (-2-2) MMOL/L Fadi Test Y FiO2 2lpm via nc Laboratory Results 03/30/16 03/30/16 03/30/16 Range/Units 13:30 14:06 19:08 WBC 12.51 H (4.8-10.8) 10^3/uL RBC 5.91 H (4.20-5.40) 10^6/uL Hgb 17.0 H (12.0-16.0) g/dL Hct 50.8 H (37.0-47.0) % MCV 86.0 (81-99) FL MCH 28.8 (27-31) PG MCHC 33.5 (33-37) g/dL RDW Std Deviation 51.3 H (39-50) fL RDW Coeff of Madan 16.4 H (11.5-14.5) % Plt Count 345 (140-350) 10*3/uL MPV 9.3 (7.4-12.2) FL Immature Gran % (Auto) 0.4 (0-5) % Neut % (Auto) 70.6 (50-80) % Lymph % (Auto) 16.6 (10-50) % [place] % (Auto) 6.2 (5-15) % Eos % (Auto) 5.9 (0-8) % Baso % (Auto) 0.3 (0-1) % Immature Gran # (Auto) 0.05 10*3/UL Neut # (Auto) 8.82 10*3/UL Lymph # (Auto) 2.08 10*3/uL [place] # (Auto) 0.78 (0.3-0.8) 10*3/UL Eos # (Auto) 0.74 10*3/UL Baso # (Auto) 0.04 10*3/UL WBC Morphology Comment Normal morphology (NORM) Plt Morphology Comment Normal morphology (NORM) RBC Morph Comment Normal morphology (NORM) PT 9.4 L (9.7-11.4) secs INR 0.91 (0.00-5.90) N/A D-Dimer 0.96 H (0.00-0.59) mg/L ABG pH (7.35-7.45) ABG pCO2 (34-38) MMHG ABG pO2 (65-75) MMHG ABG HCO3 (22-26) ABG Total CO2 (23-27) MMOL/L ABG O2 Saturation (90-100) % ABG Base Excess (-2-2) MMOL/L Fadi Test FiO2 Sodium 139 (135-145) meq/L Potassium 3.8 (3.8-5.2) meq/L Chloride 103 (98-112) meq/L Carbon Dioxide 23 (23-33) meq/L Anion Gap 13 (5-20) BUN 16 (7-22) mg/dL Creatinine 0.9 (0.50-1.20) mg/dL Estimated GFR > 60 (>60 ml/min/1.73m(2)) BUN/Creatinine Ratio 17.77 (6-20) Glucose 185 H (78-110) mg/dL Mean Blood Glucose mg/dL Hemoglobin A1c (4.2-6.0) % Calculated Osmolality 293.0 H (267-292) mOsm/kg Calcium 9.9 (8.7-10.7) mg/dL Magnesium 1.9 (1.6-2.4) mg/dL Total Bilirubin 0.6 (0.3-1.2) mg/dL AST 19 (8-39) IU/L ALT 29 (9-52) IU/L Alkaline Phosphatase 106 (38-126) IU/L Total Creatine Kinase (30-135) IU/L Troponin I < 0.012 < 0.012 (< 0.040) ng/mL NT-Pro-B Natriuret Pep (0-125) PG/ML Total Protein 7.5 (6.1-8.0) g/dL Albumin 4.5 (3.5-4.8) g/dL Globulin 3.1 (2.50-4.10) g/dL Albumin/Globulin Ratio 1.40 (1.3-2.0) mg/g Triglycerides (44-200) mg/dL Cholesterol (120-200) mg/dL LDL Cholesterol, Calc mg/dL VLDL Cholesterol (0-40) mg/dL HDL Cholesterol (40-150) mg/dL Cholesterol/HDL Ratio (0-4.0) RATIO Amylase (30-110) U/L Lipase (23-300) IU/L TSH 5.37 H (0.2700-4.2000) uIU/mL Free T4 1.27 (0.93-1.71) ng/dL 03/31/16 03/31/16 03/31/16 Range/Units 01:11 05:00 06:05 WBC 11.17 H (4.8-10.8) 10^3/uL RBC 5.39 (4.20-5.40) 10^6/uL Hgb 15.0 (12.0-16.0) g/dL Hct 47.6 H (37.0-47.0) % MCV 88.3 (81-99) FL MCH 27.8 (27-31) PG MCHC 31.5 L (33-37) g/dL RDW Std Deviation 52.1 H (39-50) fL RDW Coeff of Madan 16.4 H (11.5-14.5) % Plt Count 316 (140-350) 10*3/uL MPV 9.5 (7.4-12.2) FL Immature Gran % (Auto) 0.5 (0-5) % Neut % (Auto) 71.9 (50-80) % Lymph % (Auto) 13.8 (10-50) % [place] % (Auto) 6.7 (5-15) % Eos % (Auto) 6.8 (0-8) % Baso % (Auto) 0.3 (0-1) % Immature Gran # (Auto) 0.06 10*3/UL Neut # (Auto) 8.03 10*3/UL Lymph # (Auto) 1.54 10*3/uL [place] # (Auto) 0.75 (0.3-0.8) 10*3/UL Eos # (Auto) 0.76 10*3/UL Baso # (Auto) 0.03 10*3/UL WBC Morphology Comment Normal morphology (NORM) Plt Morphology Comment Normal morphology (NORM) RBC Morph Comment Normal morphology (NORM) PT (9.7-11.4) secs INR (0.00-5.90) N/A D-Dimer 0.71 H (0.00-0.59) mg/L ABG pH (7.35-7.45) ABG pCO2 (34-38) MMHG ABG pO2 (65-75) MMHG ABG HCO3 (22-26) ABG Total CO2 (23-27) MMOL/L ABG O2 Saturation (90-100) % ABG Base Excess (-2-2) MMOL/L Fadi Test FiO2 Sodium 140 (135-145) meq/L Potassium 4.6 (3.8-5.2) meq/L Chloride 106 (98-112) meq/L Carbon Dioxide 24 (23-33) meq/L Anion Gap 10 (5-20) BUN 14 (7-22) mg/dL Creatinine 0.9 (0.50-1.20) mg/dL Estimated GFR > 60 (>60 ml/min/1.73m(2)) BUN/Creatinine Ratio 15.55 (6-20) Glucose 133 H (78-110) mg/dL Mean Blood Glucose 177.403 mg/dL Hemoglobin A1c 7.91 H (4.2-6.0) % Calculated Osmolality 292.0 (267-292) mOsm/kg Calcium 9.4 (8.7-10.7) mg/dL Magnesium (1.6-2.4) mg/dL Total Bilirubin 0.3 (0.3-1.2) mg/dL AST 12 (8-39) IU/L ALT 28 (9-52) IU/L Alkaline Phosphatase 87 (38-126) IU/L Total Creatine Kinase 29 L (30-135) IU/L Troponin I < 0.012 < 0.012 (< 0.040) ng/mL NT-Pro-B Natriuret Pep 48.5 (0-125) PG/ML Total Protein 5.8 L (6.1-8.0) g/dL Albumin 3.5 (3.5-4.8) g/dL Globulin 2.3 L (2.50-4.10) g/dL Albumin/Globulin Ratio 1.50 (1.3-2.0) mg/g Triglycerides 476 H (44-200) mg/dL Cholesterol 213 H (120-200) mg/dL LDL Cholesterol, Calc 85.800 mg/dL VLDL Cholesterol 95 H (0-40) mg/dL HDL Cholesterol 32 L (40-150) mg/dL Cholesterol/HDL Ratio 6.65 H (0-4.0) RATIO Amylase (30-110) U/L Lipase (23-300) IU/L TSH (0.2700-4.2000) uIU/mL Free T4 (0.93-1.71) ng/dL 04/01/16 04/01/16 04/01/16 Range/Units 05:00 05:20 16:54 WBC 11.27 H (4.8-10.8) 10^3/uL RBC 5.15 (4.20-5.40) 10^6/uL Hgb 14.4 (12.0-16.0) g/dL Hct 45.3 (37.0-47.0) % MCV 88.0 (81-99) FL MCH 28.0 (27-31) PG MCHC 31.8 L (33-37) g/dL RDW Std Deviation 51.7 H (39-50) fL RDW Coeff of Madan 16.3 H (11.5-14.5) % Plt Count 316 (140-350) 10*3/uL MPV 9.5 (7.4-12.2) FL Immature Gran % (Auto) 0.6 (0-5) % Neut % (Auto) 62.1 (50-80) % Lymph % (Auto) 20.0 (10-50) % [place] % (Auto) 8.5 (5-15) % Eos % (Auto) 8.5 H (0-8) % Baso % (Auto) 0.3 (0-1) % Immature Gran # (Auto) 0.07 10*3/UL Neut # (Auto) 7.00 10*3/UL Lymph # (Auto) 2.25 10*3/uL [place] # (Auto) 0.96 H (0.3-0.8) 10*3/UL Eos # (Auto) 0.96 10*3/UL Baso # (Auto) 0.03 10*3/UL WBC Morphology Comment Normal morphology (NORM) Plt Morphology Comment Normal morphology (NORM) RBC Morph Comment Normal morphology (NORM) PT (9.7-11.4) secs INR (0.00-5.90) N/A D-Dimer (0.00-0.59) mg/L ABG pH 7.41 (7.35-7.45) ABG pCO2 34 (34-38) MMHG ABG pO2 70 (65-75) MMHG ABG HCO3 22 (22-26) ABG Total CO2 23 (23-27) MMOL/L ABG O2 Saturation 94 (90-100) % ABG Base Excess -3 L (-2-2) MMOL/L Fadi Test Y FiO2 2lpm via nc Sodium 138 (135-145) meq/L Potassium 4.6 (3.8-5.2) meq/L Chloride 104 (98-112) meq/L Carbon Dioxide 25 (23-33) meq/L Anion Gap 9 (5-20) BUN 20 (7-22) mg/dL Creatinine 0.9 (0.50-1.20) mg/dL Estimated GFR > 60 (>60 ml/min/1.73m(2)) BUN/Creatinine Ratio 22.22 H (6-20) Glucose 133 H (78-110) mg/dL Mean Blood Glucose mg/dL Hemoglobin A1c (4.2-6.0) % Calculated Osmolality 290.0 (267-292) mOsm/kg Calcium 9.2 (8.7-10.7) mg/dL Magnesium (1.6-2.4) mg/dL Total Bilirubin 0.3 (0.3-1.2) mg/dL AST 15 (8-39) IU/L ALT 27 (9-52) IU/L Alkaline Phosphatase 88 (38-126) IU/L Total Creatine Kinase (30-135) IU/L Troponin I (< 0.040) ng/mL NT-Pro-B Natriuret Pep (0-125) PG/ML Total Protein 6.0 L (6.1-8.0) g/dL Albumin 3.5 (3.5-4.8) g/dL Globulin 2.5 (2.50-4.10) g/dL Albumin/Globulin Ratio 1.40 (1.3-2.0) mg/g Triglycerides (44-200) mg/dL Cholesterol (120-200) mg/dL LDL Cholesterol, Calc mg/dL VLDL Cholesterol (0-40) mg/dL HDL Cholesterol (40-150) mg/dL Cholesterol/HDL Ratio (0-4.0) RATIO Amylase < 30 L (30-110) U/L Lipase 32 (23-300) IU/L TSH (0.2700-4.2000) uIU/mL Free T4 (0.93-1.71) ng/dL Objective : Exam - General General Appearance: No Acute Distress, Cooperative Additional General Exam Details: Vital Signs - Last Taken Temperature 97.5 F 04/01/16 20:34 Pulse Rate 73 04/01/16 20:34 Respiratory Rate 16 04/01/16 20:34 Blood Pressure 91/48 04/01/16 20:34 Pulse Ox 93 04/01/16 20:34 - Eye Eye Exam: No Scleral Icterus - ENT ENT Exam: Mucous Membranes Moist - Neck Neck Exam: Normal Inspection, No Tenderness, No Thyromegaly - Respiratory Respiratory Exam: Clear to Auscultation - Bilaterally, Breathing Non Labored - Cardiovascular Cardiovascular Exam: RRR, No Murmur, No Clicks, No Gallops, No Rubs, No JVD - GI/Abdominal GI/Abdominal Exam: Normal Bowel Sounds, Non Tender, Non Distended, Soft - Extremities Extremities Exam: No Clubbing Present, No Edema Present, No Cyanosis Present - Neurological Neurological Exam: Alert, Oriented x 3, No Facial Droop, Speech Intact / Clear, Moves All Extremities Equally - Psychiatric Psychiatric Exam: Anxious, Depressed - Integumentary Integumentary Exam: Normal Color, Warm, Dry, Intact Assessment and Plan - Patient Problems (1) Chest pain Current Visit: Yes Status: Acute (2) Pulmonary hypertension Current Visit: Yes Status: Acute (3) Poorly controlled type 2 diabetes mellitus Current Visit: Yes Status: Acute (4) Urinary tract infection Current Visit: Yes Status: Acute Comment: Present on admission to hospital. Secondary to Escherichia coli, sensitive to Keflex/Ancef. (5) Hypertension Current Visit: Yes Status: Chronic Qualifiers: Hypertension type: essential hypertension Qualified Description: Essential hypertension Qualifier Code(s): (I10) Essential (primary) hypertension (6) Osteoarthritis Current Visit: Yes Status: Acute Qualifiers: Osteoarthritis location: knee Osteoarthritis type: primary Laterality: right Qualified Description: Primary osteoarthritis of right knee Qualifier Code(s): (M17.11) Unilateral primary osteoarthritis, right knee (7) Neuropathy Current Visit: Yes Status: Acute - Assessment / Plan Additional Assessment/Plan Details: This is a very complex situation. The patient's complaints when I read through the history and physical and when I discussed with my partner was chest pain. The patient states that she has abdominal pain now. Given her diabetes mellitus type II, I think a stress test was an appropriate workup and it was found to be negative fortunately today. Given that, I think the patient does warrant a couple of more tests in terms of her abdominal pain. Her history is suggestive of irritable bowel syndrome, but intermittent diarrhea with abdominal pain for the past 8 years and this patient should be explored for possible colon cancer. In addition she is taking in a significant amount of anti-inflammatories which could be contributing to an ulcer that might be masked by chronic proton pump inhibitor therapy. She would likely benefit from an EGD. She has significant symptoms of abdominal pain with meals which could indicate biliary dyskinesia despite a normal gallbladder study on CT scan. I have arranged for a HIDA scan but it cannot be done until Thursday due to nuclear decay from her stress test today. In terms of the pulmonary hypertension, her CTA was negative for pulmonary emboli. I suspect she has underlying sleep apnea and needs a sleep study at the time of discharge ordered. Patient complained of right knee pain, and although I discussed with her several medications that could induce abdominal pain, including Celebrex, all of which would constitute fairly easy fix to just stop the medications, she opted for a right knee arthrocentesis with steroid injection. Consent is in the chart. She reported immediate relief. Please see procedure note. Patient likely will need oxygen due to her pulmonary hypertension, and she has been consistently below 87% on room air. We did do an ABG and it did show good oxygenation and a normal blood gas value. In terms of her diabetes, think the patient would benefit from going off of her Onglyza due to abdominal pain problems. She would probably do better on insulin as it lacks abdominal pain as a side effect. But the patient was very upset at that thought of management. I admitted the patient inpatient to continue to monitor for the above reasons, and hopefully we'll be able to discharge patient in the next day or 2.
--- NOTE | 2016-04-01 23:00 | PROCEDURE1 ---
Procedure - - Date and Time of Service: 04/01/2016, 2300 Procedure Note: Procedure Performed: Therapeutic Arthrocentesis, Knee Date Procedure Performed: 04/01/2016 Indications for Procedure: 1. osteoarthritis side of knee with osteoarthritis, his right side 2. effusion, small Risks and Benefits: Risks described as bleeding, infection, or skin necrosis, and benefits as pain relief, the patient consented to have the knee aspiration done. Anesthesia: Local, 1% lidocaine without epinephrine Description of Procedure: Patient was prepped and draped in usual fashion. Using a lateral approach, a 1- 1/2 inch 22-gauge needle attached to a 10 mL syringe was inserted into the right knee joint, containing 5 mL of lidocaine and 2 mL of Celestone at 6 mg per mL, 4 total of about 12 mg. This solution was injected into the knee joint. The needle was withdrawn the area was cleansed with alcohol swabs. Hemostasis was achieved. A Band-Aid was applied. After the procedure is done, the patient reported improvement in her pain. Disposition: Patient remains admitted to the medical floor
[2016-04-02] MEDS: HEPARIN 5000 UNIT/1 ML SUBCUT SCH ×2 (00:23→08:11)
[2016-04-02] MEDS: HYDROcodone-APAP 7.5 MG-325 MG TABLET PO PRN ×2 (07:13→12:22)
[2016-04-02] MEDS: GEMFIBROZIL 600 MG TABLET PO SCH (07:14)
[2016-04-02 07:32] VITALS: RESP 18
[2016-04-02] MEDS: LISINOPRIL 20 MG TABLET PO SCH (08:59)
[2016-04-02] MEDS: HYDROCHLOROTHIAZIDE 12.5 MG CAPSULE PO SCH (08:59)
[2016-04-02] MEDS: ALLOPURINOL 300 MG TABLET PO SCH (09:00)
[2016-04-02] MEDS: PANTOPRAZOLE 40 MG TABLET PO SCH (09:00)
[2016-04-02] MEDS: Potassium Chloride Tab 10 MEQ TAB PO SCH (09:00)
[2016-04-02] MEDS: SAXAGLIPTIN HCL 2.5 MG PO SCH (09:03)
[2016-04-02] MEDS: OXYBUTYNIN CHLORIDE 10 MG PO SCH (09:03)
[2016-04-02] MEDS: CEPHALEXIN 500 MG CAPSULE PO SCH (09:04)
--- NOTE | 2016-04-02 13:04 | DCSUMMARY ---
Hospitalization Summary Admit Date: 03/30/16 Discharge Date: 04/02/16 Primary Diagnosis:: pulmonary hypertension Secondary Diagnosis:: Abdominal pain, unclear etiology. Chest pain, resolved, atypical, negative stress test. Hospital Course: This very pleasant 60-year-old female that came in on March 30 with complaints of chest pain. She was admitted, she also had abdominal pain. It was felt that this could be a nontypical presentation of coronary artery disease , and she ruled out for myocardial infarction and a stress test was ordered. The patient had a stress test done and it was negative for wall motion abnormalities or reversible defect. Based on calciums course the patient may have underlying blood vessel disease with calcium in her coronary arteries. Chest pain completely resolved with nitroglycerin. The patient had imaging done to make sure there is no pulmonary emboli, and on that study there was no evidence of pulmonary emboli but it was noted that the patient have pulmonary hypertension. Is not clear why the patient has pulmonary hypertension. Chest x-rays were also in agreement with this diagnosis. It could be that she has underlying sleep apnea. We have arranged a sleep study with a prescription faxed off for review. Patient had urinary tract infection, present on admission, it was related to Escherichia coli. Repeat culture here showed contaminant pattern with more than 3 colony types. Patient will finish off antibiotics in the next 2 days. Patient's triglycerides were found to be quite elevated, and putting her at risk of pancreatitis. We started her on Lopid. The patient's abdominal pain was very difficult to try and figure out. Her CT scan of her abdomen and pelvis was negative for acute pathologies. However she' s had chronic intermittent diarrhea for upwards of 8 years, has not had a colonoscopy in about 8-10 years, and was told that she had irritable bowel syndrome. She also has been taking a significant amount of ibuprofen for right knee pain and knee arthritis. For the knee, we did a steroid injection to try and relieve pain and stop anti-inflammatories for now. I even advised the patient to stop Celebrex. We have arranged to see surgery, with a HIDA scan to be done this Thursday, and possible EGD and colonoscopy to evaluate these issues. Given the resolution of these issues, the patient not having any further chest pain, shortness breath, nausea or vomiting, and pain being controlled and her abdomen with hydrocodone, we will discharge patient home. She feels that she is ready to go home. Assessment and Plan: 1. As per discharge assessments noted 2. Disposition: Patient is discharged home. 3. Condition on discharge, stable and improved. 4. Diet: regular diet/diabetic diet 5. Activities: resume normal activities 6. Follow-Up: 1. Primary care provider in 2 weeks 2. Surgery in 1 week 3. Orthopedic surgery in 1 week. 7. Medications at the Time of Discharge: Home Medications Medication Instructions Recorded Confirmed Type Lisinopril/Hydrochlorothiazide 1 tab PO DAILY 01/24/12 03/30/16 History [Lisinopril-Hctz 20-12.5 mg Tab] Pantoprazole Sodium [Protonix] 1 tab PO DAILY 01/24/12 03/30/16 History Allopurinol 1 tab PO DAILY 11/06/13 03/30/16 History Sertraline HCl [Zoloft] 1 tab PO DAILY tab 02/13/14 03/30/16 History Dicyclomine HCl [Bentyl] 1 tab PO TID 11/20/14 03/30/16 History Potassium Chloride [Klor-Con] 1 tab PO DAILY 11/20/14 03/30/16 History Gabapentin 1 cap PO DAILY cap 12/25/14 03/30/16 History Oxybutynin Chloride [Oxybutynin 10 mg PO DAILY tab 12/07/15 03/30/16 History Chloride ER] Saxagliptin HCl [Onglyza] 2.5 mg PO DAILY #30 tab 01/15/16 03/30/16 Clinic Zolpidem Tartrate [Ambien] 1 tab PO QHS #30 02/05/16 03/30/16 Clinic Oxybutynin Chloride [Oxybutynin 10 mg PO DAILY 03/31/16 03/31/16 History Chloride ER] Cephalexin [Keflex] 500 mg PO BID #5 cap 04/02/16 Rx Gemfibrozil [Lopid] 600 mg PO AC BK DIN #60 tab 04/02/16 Rx HYDROcodone/APAP 7.5/325 Tab 1 - 2 tab PO Q4H PRN #40 tab 04/02/16 Rx [[place] 7.5/325 Tab] 8. Time, care, counseling and coordination of care for this discharge is greater than 30 minutes. Exam - Vitals Vital Signs: Vital Signs Temperature 97.6 F Temperature Source Temporal Artery Scan Pulse Rate [Pulse Oximeter] 79 Pulse Rate [Telemetry] 80 Pulse Rate 74 Respiratory Rate 18 Blood Pressure [Right Arm] 132/84 Pulse Ox 93 Oxygen Flow Rate 3 Oxygen Delivery Method Nasal Cannula Weight 234 lb 12.8 oz - General General Appearance: POSITIVE: No Acute Distress, Cooperative - Head Head Exam: POSITIVE: Normal Inspection, Normocephalic, Atraumatic - Eye Eye Exam: POSITIVE: No Scleral Icterus - Respiratory Respiratory Exam: POSITIVE: Clear to Auscultation - Bilaterally, Breathing Non Labored - Cardiovascular Cardiovascular Exam: POSITIVE: RRR, No Murmur, No Clicks, No Gallops, No Rubs, No JVD - GI/Abdominal GI/Abdominal Exam: POSITIVE: Normal Bowel Sounds, Non Tender, Non Distended, Soft - Extremities Extremities Exam: POSITIVE: No Clubbing Present, No Edema Present, No Cyanosis Present - Neurological Neurological Exam: POSITIVE: Alert, Oriented x 3, No Facial Droop, Speech Intact / Clear, Moves All Extremities Equally Data Perinent Studies: Laboratory Results 03/30/16 03/30/16 03/30/16 Range/Units 13:30 14:06 19:08 WBC 12.51 H (4.8-10.8) 10^3/uL RBC 5.91 H (4.20-5.40) 10^6/uL Hgb 17.0 H (12.0-16.0) g/dL Hct 50.8 H (37.0-47.0) % MCV 86.0 (81-99) FL MCH 28.8 (27-31) PG MCHC 33.5 (33-37) g/dL RDW Std Deviation 51.3 H (39-50) fL RDW Coeff of Madan 16.4 H (11.5-14.5) % Plt Count 345 (140-350) 10*3/uL MPV 9.3 (7.4-12.2) FL Immature Gran % (Auto) 0.4 (0-5) % Neut % (Auto) 70.6 (50-80) % Lymph % (Auto) 16.6 (10-50) % [place] % (Auto) 6.2 (5-15) % Eos % (Auto) 5.9 (0-8) % Baso % (Auto) 0.3 (0-1) % Immature Gran # (Auto) 0.05 10*3/UL Neut # (Auto) 8.82 10*3/UL Lymph # (Auto) 2.08 10*3/uL [place] # (Auto) 0.78 (0.3-0.8) 10*3/UL Eos # (Auto) 0.74 10*3/UL Baso # (Auto) 0.04 10*3/UL WBC Morphology Comment Normal morphology (NORM) Plt Morphology Comment Normal morphology (NORM) RBC Morph Comment Normal morphology (NORM) PT 9.4 L (9.7-11.4) secs INR 0.91 (0.00-5.90) N/A D-Dimer 0.96 H (0.00-0.59) mg/L ABG pH (7.35-7.45) ABG pCO2 (34-38) MMHG ABG pO2 (65-75) MMHG ABG HCO3 (22-26) ABG Total CO2 (23-27) MMOL/L ABG O2 Saturation (90-100) % ABG Base Excess (-2-2) MMOL/L Fadi Test FiO2 Sodium 139 (135-145) meq/L Potassium 3.8 (3.8-5.2) meq/L Chloride 103 (98-112) meq/L Carbon Dioxide 23 (23-33) meq/L Anion Gap 13 (5-20) BUN 16 (7-22) mg/dL Creatinine 0.9 (0.50-1.20) mg/dL Estimated GFR > 60 (>60 ml/min/1.73m(2)) BUN/Creatinine Ratio 17.77 (6-20) Glucose 185 H (78-110) mg/dL Mean Blood Glucose mg/dL Hemoglobin A1c (4.2-6.0) % Calculated Osmolality 293.0 H (267-292) mOsm/kg Calcium 9.9 (8.7-10.7) mg/dL Magnesium 1.9 (1.6-2.4) mg/dL Total Bilirubin 0.6 (0.3-1.2) mg/dL AST 19 (8-39) IU/L ALT 29 (9-52) IU/L Alkaline Phosphatase 106 (38-126) IU/L Total Creatine Kinase (30-135) IU/L Troponin I < 0.012 < 0.012 (< 0.040) ng/mL NT-Pro-B Natriuret Pep (0-125) PG/ML Total Protein 7.5 (6.1-8.0) g/dL Albumin 4.5 (3.5-4.8) g/dL Globulin 3.1 (2.50-4.10) g/dL Albumin/Globulin Ratio 1.40 (1.3-2.0) mg/g Triglycerides (44-200) mg/dL Cholesterol (120-200) mg/dL LDL Cholesterol, Calc mg/dL VLDL Cholesterol (0-40) mg/dL HDL Cholesterol (40-150) mg/dL Cholesterol/HDL Ratio (0-4.0) RATIO Amylase (30-110) U/L Lipase (23-300) IU/L TSH 5.37 H (0.2700-4.2000) uIU/mL Free T4 1.27 (0.93-1.71) ng/dL 03/31/16 03/31/16 03/31/16 Range/Units 01:11 05:00 06:05 WBC 11.17 H (4.8-10.8) 10^3/uL RBC 5.39 (4.20-5.40) 10^6/uL Hgb 15.0 (12.0-16.0) g/dL Hct 47.6 H (37.0-47.0) % MCV 88.3 (81-99) FL MCH 27.8 (27-31) PG MCHC 31.5 L (33-37) g/dL RDW Std Deviation 52.1 H (39-50) fL RDW Coeff of Madan 16.4 H (11.5-14.5) % Plt Count 316 (140-350) 10*3/uL MPV 9.5 (7.4-12.2) FL Immature Gran % (Auto) 0.5 (0-5) % Neut % (Auto) 71.9 (50-80) % Lymph % (Auto) 13.8 (10-50) % [place] % (Auto) 6.7 (5-15) % Eos % (Auto) 6.8 (0-8) % Baso % (Auto) 0.3 (0-1) % Immature Gran # (Auto) 0.06 10*3/UL Neut # (Auto) 8.03 10*3/UL Lymph # (Auto) 1.54 10*3/uL [place] # (Auto) 0.75 (0.3-0.8) 10*3/UL Eos # (Auto) 0.76 10*3/UL Baso # (Auto) 0.03 10*3/UL WBC Morphology Comment Normal morphology (NORM) Plt Morphology Comment Normal morphology (NORM) RBC Morph Comment Normal morphology (NORM) PT (9.7-11.4) secs INR (0.00-5.90) N/A D-Dimer 0.71 H (0.00-0.59) mg/L ABG pH (7.35-7.45) ABG pCO2 (34-38) MMHG ABG pO2 (65-75) MMHG ABG HCO3 (22-26) ABG Total CO2 (23-27) MMOL/L ABG O2 Saturation (90-100) % ABG Base Excess (-2-2) MMOL/L Fadi Test FiO2 Sodium 140 (135-145) meq/L Potassium 4.6 (3.8-5.2) meq/L Chloride 106 (98-112) meq/L Carbon Dioxide 24 (23-33) meq/L Anion Gap 10 (5-20) BUN 14 (7-22) mg/dL Creatinine 0.9 (0.50-1.20) mg/dL Estimated GFR > 60 (>60 ml/min/1.73m(2)) BUN/Creatinine Ratio 15.55 (6-20) Glucose 133 H (78-110) mg/dL Mean Blood Glucose 177.403 mg/dL Hemoglobin A1c 7.91 H (4.2-6.0) % Calculated Osmolality 292.0 (267-292) mOsm/kg Calcium 9.4 (8.7-10.7) mg/dL Magnesium (1.6-2.4) mg/dL Total Bilirubin 0.3 (0.3-1.2) mg/dL AST 12 (8-39) IU/L ALT 28 (9-52) IU/L Alkaline Phosphatase 87 (38-126) IU/L Total Creatine Kinase 29 L (30-135) IU/L Troponin I < 0.012 < 0.012 (< 0.040) ng/mL NT-Pro-B Natriuret Pep 48.5 (0-125) PG/ML Total Protein 5.8 L (6.1-8.0) g/dL Albumin 3.5 (3.5-4.8) g/dL Globulin 2.3 L (2.50-4.10) g/dL Albumin/Globulin Ratio 1.50 (1.3-2.0) mg/g Triglycerides 476 H (44-200) mg/dL Cholesterol 213 H (120-200) mg/dL LDL Cholesterol, Calc 85.800 mg/dL VLDL Cholesterol 95 H (0-40) mg/dL HDL Cholesterol 32 L (40-150) mg/dL Cholesterol/HDL Ratio 6.65 H (0-4.0) RATIO Amylase (30-110) U/L Lipase (23-300) IU/L TSH (0.2700-4.2000) uIU/mL Free T4 (0.93-1.71) ng/dL 04/01/16 04/01/16 04/01/16 Range/Units 05:00 05:20 16:54 WBC 11.27 H (4.8-10.8) 10^3/uL RBC 5.15 (4.20-5.40) 10^6/uL Hgb 14.4 (12.0-16.0) g/dL Hct 45.3 (37.0-47.0) % MCV 88.0 (81-99) FL MCH 28.0 (27-31) PG MCHC 31.8 L (33-37) g/dL RDW Std Deviation 51.7 H (39-50) fL RDW Coeff of Madan 16.3 H (11.5-14.5) % Plt Count 316 (140-350) 10*3/uL MPV 9.5 (7.4-12.2) FL Immature Gran % (Auto) 0.6 (0-5) % Neut % (Auto) 62.1 (50-80) % Lymph % (Auto) 20.0 (10-50) % [place] % (Auto) 8.5 (5-15) % Eos % (Auto) 8.5 H (0-8) % Baso % (Auto) 0.3 (0-1) % Immature Gran # (Auto) 0.07 10*3/UL Neut # (Auto) 7.00 10*3/UL Lymph # (Auto) 2.25 10*3/uL [place] # (Auto) 0.96 H (0.3-0.8) 10*3/UL Eos # (Auto) 0.96 10*3/UL Baso # (Auto) 0.03 10*3/UL WBC Morphology Comment Normal morphology (NORM) Plt Morphology Comment Normal morphology (NORM) RBC Morph Comment Normal morphology (NORM) PT (9.7-11.4) secs INR (0.00-5.90) N/A D-Dimer (0.00-0.59) mg/L ABG pH 7.41 (7.35-7.45) ABG pCO2 34 (34-38) MMHG ABG pO2 70 (65-75) MMHG ABG HCO3 22 (22-26) ABG Total CO2 23 (23-27) MMOL/L ABG O2 Saturation 94 (90-100) % ABG Base Excess -3 L (-2-2) MMOL/L Fadi Test Y FiO2 2lpm via nc Sodium 138 (135-145) meq/L Potassium 4.6 (3.8-5.2) meq/L Chloride 104 (98-112) meq/L Carbon Dioxide 25 (23-33) meq/L Anion Gap 9 (5-20) BUN 20 (7-22) mg/dL Creatinine 0.9 (0.50-1.20) mg/dL Estimated GFR > 60 (>60 ml/min/1.73m(2)) BUN/Creatinine Ratio 22.22 H (6-20) Glucose 133 H (78-110) mg/dL Mean Blood Glucose mg/dL Hemoglobin A1c (4.2-6.0) % Calculated Osmolality 290.0 (267-292) mOsm/kg Calcium 9.2 (8.7-10.7) mg/dL Magnesium (1.6-2.4) mg/dL Total Bilirubin 0.3 (0.3-1.2) mg/dL AST 15 (8-39) IU/L ALT 27 (9-52) IU/L Alkaline Phosphatase 88 (38-126) IU/L Total Creatine Kinase (30-135) IU/L Troponin I (< 0.040) ng/mL NT-Pro-B Natriuret Pep (0-125) PG/ML Total Protein 6.0 L (6.1-8.0) g/dL Albumin 3.5 (3.5-4.8) g/dL Globulin 2.5 (2.50-4.10) g/dL Albumin/Globulin Ratio 1.40 (1.3-2.0) mg/g Triglycerides (44-200) mg/dL Cholesterol (120-200) mg/dL LDL Cholesterol, Calc mg/dL VLDL Cholesterol (0-40) mg/dL HDL Cholesterol (40-150) mg/dL Cholesterol/HDL Ratio (0-4.0) RATIO Amylase < 30 L (30-110) U/L Lipase 32 (23-300) IU/L TSH (0.2700-4.2000) uIU/mL Free T4 (0.93-1.71) ng/dL Patient Problems - Patient Problem List (1) Pulmonary hypertension Current Visit: Yes Status: Acute (2) Poorly controlled type 2 diabetes mellitus Current Visit: Yes Status: Acute (3) Urinary tract infection Current Visit: Yes Status: Acute (4) Hypertension Current Visit: Yes Status: Chronic Qualifiers: Hypertension type: essential hypertension Qualified Description: Essential hypertension Qualifier Code(s): (I10) Essential (primary) hypertension (5) Osteoarthritis Current Visit: Yes Status: Acute Qualifiers: Osteoarthritis location: knee Osteoarthritis type: primary Laterality: right Qualified Description: Primary osteoarthritis of right knee Qualifier Code(s): (M17.11) Unilateral primary osteoarthritis, right knee (6) Neuropathy Current Visit: Yes Status: Acute (7) Chest pain Current Visit: Yes Status: Resolved (8) Coronary artery disease Current Visit: Yes Status: Acute Qualifiers: Coronary Disease-Associated Artery/Lesion type: [place] artery [place] vs. transplanted heart: [place] heart Associated angina: without angina Qualified Description: Coronary artery disease involving [place] coronary artery of [place] heart without angina pectoris Qualifier Code(s): (I25.10) Atherosclerotic heart disease of [place] coronary artery without angina pectoris (9) Osteoarthritis, knee Current Visit: Yes Status: Acute Qualifiers: Osteoarthritis type: primary Laterality: right Qualified Description: Primary osteoarthritis of right knee Qualifier Code(s): ( M17.11) Unilateral primary osteoarthritis, right knee
[2016-04-02 13:06] VITALS: TEMP 97.7
[2016-04-02] MEDS: KETOROLAC 15 MG/1 ML VIAL IVP PRN (15:15)
[2016-04-02] MEDS ORDERED: KETOROLAC 15 MG/1 ML VIAL ONE (15:16)
== END 2016-04-02 14:03 | disposition home or self-care (01) | DRG 315 ==
LOC: ER 13:54 → MED/SURG 15:11 → UNDOADMOB 16:15 → INTOOBSV 04-01 11:28 → OBSVTOIN 04-01 11:28 → UNDODISIN 04-02 14:03
PROVIDERS: ADMIT Internal Medicine; ATTEND Family Medicine
PROC: 0S9C3ZZ Drainage of Right Knee Joint, Percutaneous Approach (ICD-10-PCS; principal; 2016-04-01)
DX: I27.2 Other secondary pulmonary hypertension (principal); E11.9 Type 2 diabetes mellitus without complications; M10.9 Gout, unspecified; N39.0 Urinary tract infection, site not specified; R10.9 Unspecified abdominal pain; E78.5 Hyperlipidemia, unspecified; F17.210 Nicotine dependence, cigarettes, uncomplicated; R07.9 Chest pain, unspecified; E11.65 Type 2 diabetes mellitus with hyperglycemia; I10 Essential (primary) hypertension; G62.9 Polyneuropathy, unspecified; I25.10 Atherosclerotic heart disease of native coronary artery without angina pectoris; M17.9 Osteoarthritis of knee, unspecified; M25.461 Effusion, right knee
CPT/HCPCS: 36415 ×3; 71010; 71275; 74177; 78452; 80053 ×3; 80061; 82150; 82550; 83036; 83690; 83735; 83880; 84439; 84443; 84484 ×2; 85025 ×3; 85379 ×2; 85610; 86376; 93005; 93010; 93306; 94761 ×3; 96374; 96375; 99284 ×2; A9500; J2785; 36600; 82803; 87088; 87493; 93016; 93017; 93018; J0696; J0702; J1644; J1885; J2001; J2060; J2270; J2405; J7030; J7050

== ENCOUNTER → 2016-04-04 | Outpatient (CLI) | payer OTHER ==
--- NOTE | 2016-04-06 04:24 | DI ---
Tc-99 HIDA BILIARY SCAN WITH FATTY MEAL CHALLENGE, 04/04/2016 9:05 AM : Clinical History: Right upper quadrant pain. Previous Related Exam: 11/08/2012. Prior to performing the study, the patient was given a preparatory meal. The patient was injected wit h 7 mCi of Tc-99 Choletec, a HIDA compound. An anterior dynamic flow study was performed followed by sequential anterior imaging at one minute intervals out to 60 minutes. The patient was then given a 3 8 gm fatty challenge and sequential anterior imaging at one minute intervals was carried out to 60 mi nutes for the gall bladder ejection phase. There was prompt reflux of activity from the duodenum into the stomach almost simultaneously as the gallbladder was visualized. The patient did experience symp toms following the preparatory meal but not after the fatty meal challenge. The patient experienced v omiting 3 hours after completing the preparatory meal that consisted of 8 ounces of whole milk and 2 tablespoons of butter on toast. Gall bladder ejection fraction was calculated to be 40%. The previous examination gave an ejection fraction of 87%. Readin. Normal excretory Tc-99 HIDA biliary kinetics, but there is evidence of significant reflux of acti vity from the duodenum into the entire stomach throughout the exam. 2. The gallbladder ejection fraction is 40% and at this institution, this is considered to be suspic ious for representing biliary dyskinesia. The previous exam from 11/08/2012, showed an ejection fractio n of 87%. 3. The patient did not experience any symptoms with the fatty meal challenge, with the preparatory m eal, the patient did experience vomiting.
== END ==
LOC: NM 09:56
PROVIDERS: ATTEND Family Medicine
DX: R10.11 Right upper quadrant pain (principal)
CPT/HCPCS: 78226; A9537

== ENCOUNTER → 2016-04-08 | Outpatient (CLI) | payer OTHER | LOC: MMPC 11:11 | PROVIDERS: ATTEND Surgery | DX: K82.8 Other specified diseases of gallbladder (principal); I27.2 Other secondary pulmonary hypertension | CPT/HCPCS: 99202; G0463 ==

== ENCOUNTER → 2016-04-10 | Outpatient (CLI) | payer OTHER | LOC: SLEEP LAB 19:56 | PROVIDERS: ATTEND Family Medicine | DX: E11.42 Type 2 diabetes mellitus with diabetic polyneuropathy (principal); M17.11 Unilateral primary osteoarthritis, right knee; R59.0 Localized enlarged lymph nodes; I28.8 Other diseases of pulmonary vessels; K76.0 Fatty (change of) liver, not elsewhere classified; E66.01 Morbid (severe) obesity due to excess calories; I25.10 Atherosclerotic heart disease of native coronary artery without angina pectoris; E78.1 Pure hyperglyceridemia; R93.2 Abnormal findings on diagnostic imaging of liver and biliary tract; I10 Essential (primary) hypertension; G47.33 Obstructive sleep apnea (adult) (pediatric); G47.34 Idiopathic sleep related nonobstructive alveolar hypoventilation | CPT/HCPCS: 95811; 99213; G0463 ==

== ENCOUNTER → 2016-04-15 | Outpatient (CLI) | payer OTHER | LOC: MMPC 10:00 | PROVIDERS: ATTEND Specialist | DX: Z01.810 Encounter for preprocedural cardiovascular examination (principal); I10 Essential (primary) hypertension; E11.9 Type 2 diabetes mellitus without complications; K82.8 Other specified diseases of gallbladder; I25.10 Atherosclerotic heart disease of native coronary artery without angina pectoris; E78.5 Hyperlipidemia, unspecified | CPT/HCPCS: 99204; G0463 ==

== ENCOUNTER 2016-04-21 07:08 | Day surgery (SDC) | payer OTHER ==
[~2016-04-21 07:08] MED LIST: ATROPINE SULFATE 0.4 MG/1 ML VIAL IVP PRN; BUPIVACAINE 0.25% W/ EPI - 10 ML VIAL ONE; Bacteriostatic NaCl Inj 30ml Vial ONE; HYDROmorphone 2 MG/1 ML IVP PRN; IPRATROPIUM/ALBUTEROL SULFATE 3 ML NEB NEB ONE; Iothalamate Meglumine 30 ML VIAL IV ONE; LIDOCAINE W/ SODIUM BICARB 0.5 ML SYR ONE; Lactated Ringers 1,000 ML PRIMARY IV ONE; Lactated Ringers 1,000 ML PRIMARY IV SCH; NORMAL SALINE 10 ML SYRINGE FLUSH IVP PRN; ONDANSETRON 4 MG/2 ML VIAL IVP PRN; Ondansetron ODT Tab 8 MG TAB PO PRN; fentaNYL Inj 100 MCG/2 ML VIAL IVP PRN
[2016-04-21] MEDS ORDERED: fentaNYL Inj 250 MCG/5 ML VIAL ONE (07:14)
[2016-04-21] MEDS ORDERED: KETAMINE 100 MG/1 ML - 5 ML ONE (07:14)
[2016-04-21] MEDS ORDERED: MIDAZOLAM 5 MG/1 ML ONE (07:14)
[2016-04-21] MEDS ORDERED: LIDOCAINE MPF 2% - 5 ML (20 MG/1 ML) ONE ×2 (07:16→09:01)
[2016-04-21] MEDS ORDERED: Sodium Chloride 0.9% vial 10 ML ONE (07:16)
[2016-04-21] MEDS ORDERED: ROCURONIUM 10 MG/1 ML - 5 ML VIAL IVP ONE (07:17)
[2016-04-21] MEDS ORDERED: HYDROcodone-APAP 7.5 MG-325 MG TABLET PO PRN (07:53)
[2016-04-21] MEDS ORDERED: ONDANSETRON 4 MG/2 ML VIAL IVP PRN (07:53)
[2016-04-21] MEDS ORDERED: MORPHINE SULFATE 2 MG/1 ML IVP PRN (07:53)
[2016-04-21] MEDS ORDERED: NORMAL SALINE 10 ML SYRINGE FLUSH IVP PRN (07:53)
[2016-04-21] MEDS ORDERED: Lactated Ringers 1,000 ML PRIMARY IV SCH (08:00)
[2016-04-21] MEDS ORDERED: ePHEDrine Inj 50 MG/ML AMP ONE (08:22)
[2016-04-21] MEDS ORDERED: Bacteriostatic NaCl Inj 30ml Vial ONE (08:38)
[2016-04-21] MEDS ORDERED: Iothalamate Meglumine 30 ML VIAL IV ONE (08:39)
[2016-04-21] MEDS ORDERED: Lactated Ringers 1,000 ML PRIMARY IV ONE (08:44)
[2016-04-21] MEDS ORDERED: KETOROLAC 30 MG/1 ML VIAL ONE (08:52)
[2016-04-21] MEDS ORDERED: NEOSTIGMINE 1 MG/1 ML - 10 ML ONE (08:56)
[2016-04-21] MEDS ORDERED: GLYCOPYRROLATE 0.2 MG/1 ML VIAL ONE (08:57)
--- NOTE | 2016-04-21 08:57 | GEN.OPNOTE ---
Operative Note Surgery Date: 04/21/16 Preoperative Diagnosis: Biliary dyskinesia Postoperative Diagnosis: Biliary dyskinesia. Possible choledocholithiasis Procedure: Lab scopic cholecystectomy with intraoperative cholangiogram Surgeon: Robin Sandoval MD Former Hand: Armen Laura MD Anesthesia Provider: Pushpa Winters CRNA Anesthesia Type: General Estimated Blood Loss (mL): 10 Fluids: Lactated Ringer's please see anesthesia notes in EMR Pathology: Gallbladder sent for pathology Indications: Patient's been having epigastric right upper quadrant pain radiating straight to the back. Patient HIDA scan that showed 40% ejection fraction. No other pathology could be identified Findings: Patient had adhesions of the omentum up to the liver. Also some intra- abdominal adhesions from her C-sections. On a tropical cholangiogram initially look like there is a filling defect. We flushed the common bile duct with saline and this seemed to clear the filling defect Complications: None Operative Summary: Patient was brought in the operating room. Placed in supine position. Given general anesthetic. Was prepped draped sterile fashion. Quarter percent Marcaine was infiltrated at all trocar sites. Small incision made below the umbilicus. Veress needle inserted pneumoperitoneum obtained. After adequate pneumoperitoneum a 10 mm trocar was placed using the Visiport. Under direct laparoscopic visualization a 10 mm trocar subxiphoid and 2 -5 mm in the midclavicular and midaxillary line. Appropriate instrument were placed. Gallbladder grasped at the fundus retracted over the liver edge. Gallbladder was grasped at Param's pouch. The cystic duct was dissected free. The cystic duct was clipped near the gallbladder. Intraoperative cholangiocatheter was placed through an angiocatheter. I then opened up the cystic duct with scissors. Intraoperative cardiogram catheter was placed. C-arm was brought in an intraoperative cholangiogram was then done with the aid of the C-arm. There is no evidence of obstruction of the common bile duct and proper anatomy was identified. There initially was what appeared to be a filling defect consistent with a stone. But this cleared with flushing the common bile duct with saline The C-arm was removed. The cholangiogram was then removed. The cystic duct was doubly clipped and divided. 3 hemoclips placed 2 proximally one distally and the cystic duct was divided. Likewise the cystic artery was dissected free 3 hemoclips placed and divided. The gallbladder was dissected off liver's edge using electrocautery. The gallbladder was then removed through a subumbilical incision. The abdominal cavity was irrigated until clear. The trochars were removed. The umbilicus incision was closed with 0 Vicryl suture to the fascia. The skin was reapproximated using 4-0 Vicryl simple sutures. The remainder trocar sites were 5 mm defects we will close. The remainder skin incisions closed with 4-0 Vicryl. Steri-Strips applied sterile dressings applied. Patient transferred to recovery room in stable condition. Counts were correct
[2016-04-21] MEDS ORDERED: ESMOLOL HCL 100 MG/10 ML VIAL ONE (09:01)
--- NOTE | 2016-04-21 09:13 | DI ---
XR CHOLANGIOGRAM INTRAOP,04/21/2016 7:58 AM: Clinical History: Biliary dyskinesia. Previous Exam: None at this facility. Findings: Multiple views from an intraoperative cholangiogram are obtained, and demonstrate postsurgical change s consistent with cholecystectomy. There is no filling defect or truncation to suggest a stone. There is a change in caliber noted withi n the right hepatic duct which persists throughout all of the images. There is contrast noted within the second portion of the duodenum. Impression: 1. No evidence of stone within the common bile duct. 2. Single stricture or of the distal right hepatic duct without any other abnormal caliber. This most likely represents benign stricture especially given the fact that there are no other areas of narrow ing.
[2016-04-21 09:40] VITALS: RESP 16
[2016-04-21] MEDS ORDERED: HYDROcodone-APAP 7.5 MG-325 MG TABLET PO ONE (10:36)
[2016-04-21 12:28] VITALS: TEMP 97.5
== END 2016-04-21 11:54 | disposition home or self-care (01) ==
LOC: SDSC 07:08
PROVIDERS: ATTEND Surgery
DX: K82.8 Other specified diseases of gallbladder (principal); I27.2 Other secondary pulmonary hypertension; K81.1 Chronic cholecystitis; D76.3 Other histiocytosis syndromes
CPT/HCPCS: 47563; 74300; 94640; A4216; J1885; J2704; J3010; J7620; Q9961; J2001; J2250; J2710; J7120

== ENCOUNTER 2016-04-21 16:56 | Observation (INO) | payer OTHER ==
[2016-04-21] MEDS ORDERED: Sodium Chloride 0.9% 1,000 ML PRIMARY IV ONE ×2 (17:05→17:11)
[2016-04-21] MEDS ORDERED: NORMAL SALINE 10 ML SYRINGE FLUSH IVP PRN ×2 (17:11→20:16)
[2016-04-21] MEDS ORDERED: Pantoprazole Inj 40 MG in Normal Saline Flush 10 ML IVP ONE ×2 (17:11→21:18)
[2016-04-21] MEDS ORDERED: ASPIRIN 81 MG (BABY) CHEWABLE TABLET PO ONE (17:11)
[2016-04-21] MEDS ORDERED: ONDANSETRON 4 MG/2 ML VIAL IVP ONE (17:11)
[2016-04-21 17:19] LABS: BASOPHILS # (AUTO) 0.04 10*3/UL; BASOPHILS % (AUTO) 0.2 % (0-1); EOSINOPHILS % (AUTO) 0.9 % (0-8); HEMATOCRIT 42.8 % (37.0-47.0); HEMOGLOBIN 14.5 g/dL (12.0-16.0); IMM GRAN % (AUTO) 0.3 % (0-5); IMM GRAN# (AUTO) 0.06 10*3/UL; LYMPHOCYTES # (AUTO) 2.96 10*3/uL; LYMPHOCYTES % (AUTO) 15.9 % (10-50); MEAN CORPUSCULAR HEMOGLOBIN 29.7 PG (27-31); MEAN CORPUSCULAR HGB CONC 33.9 g/dL (33-37); MEAN PLATELET VOLUME 9.7 FL (7.4-12.2); MONOCYTES # (AUTO) 0.99 10*3/UL (0.3-0.8); MONOCYTES % (AUTO) 5.3 % (5-15); NEUTROPHILS # (AUTO) 14.36 10*3/UL; NEUTROPHILS % (AUTO) 77.4 % (50-80); PLATELET MORPHOLOGY COMMENT NORMAL MORPHOLOGY (NORM); RDW COEFFICIENT OF VARIATION 16.5 % (11.5-14.5); RED BLOOD COUNT 4.89 10^6/uL (4.20-5.40); WHITE BLOOD COUNT 18.58 10^3/uL (4.8-10.8)
[2016-04-21] MEDS: HYDROmorphone 2 MG/1 ML IVP ONE ×2 (17:25→17:55)
[2016-04-21 17:29] LABS: ASPARTATE AMINO TRANSFERASE 53 IU/L (8-39); BILIRUBIN,TOTAL 0.5 mg/dL (0.3-1.2); BLOOD UREA NITROGEN 19 mg/dL (7-22); BUN/CREATININE RATIO 23.75 (6-20); CALCIUM 9.8 mg/dL (8.7-10.7); CHLORIDE 103 meq/L (98-112); CREATININE 0.8 mg/dL (0.50-1.20); EST GLOMERULAR FILTRATION > 60 (>60 ml/min/1.73m(2)); GLUCOSE 147 mg/dL (78-110); POTASSIUM 4.4 meq/L (3.8-5.2); SODIUM 137 meq/L (135-145); TOTAL PROTEIN 6.7 g/dL (6.1-8.0)
[2016-04-21 17:32] LABS: AMYLASE < 30 U/L (30-110)
[2016-04-21 17:41] LABS: CREATINE KINASE MB 0.76 NG/DL (0.00-5.00)
[2016-04-21 17:44] LABS: TROPONIN I < 0.012 ng/mL (< 0.040)
--- NOTE | 2016-04-21 18:15 | DI ---
XR CXR 1VW,04/21/2016 5:11 PM: Clinical History: Chest pain Previous Exam: CTA chest performed August 28, 2016 Findings: A single frontal radiograph of the chest is obtained, and demonstrates overlying EKG leads. There is some increased interstitial markings most consistent with diffuse edema. There is no infiltrate nor effusion. Impression: Diffuse edema otherwise unremarkable.
--- NOTE | 2016-04-21 18:48 | PDOC ---
Chest Pain HPI - General Chief Complaint: Chest Pain Stated Complaint: chest pain - Patient Home Medications Home Medications: Home Medications Lisinopril/Hydrochlorothiazide [Lisinopril-Hctz 20-12.5 mg Tab] 1 tab PO DAILY 01/24/12 Pantoprazole Sodium [Protonix] 1 tab PO DAILY 01/24/12 Allopurinol 1 tab PO DAILY 11/06/13 Sertraline HCl [Zoloft] 1 tab PO DAILY tab 02/13/14 Potassium Chloride [Klor-Con] 1 tab PO DAILY 11/20/14 Zolpidem Tartrate [Ambien] 1 tab PO QHS #30 02/05/16 Oxybutynin Chloride [Oxybutynin Chloride ER] 10 mg PO DAILY 03/31/16 Gemfibrozil [Lopid] 600 mg PO AC BK DIN #60 tab 04/02/16 Gabapentin 1 cap PO DAILY #30 cap 04/11/16 Saxagliptin HCl [Onglyza] 5 mg PO DAILY #30 tab 04/11/16 HYDROcodone/APAP 7.5/325 Tab [[place] 7.5/325 Tab] 1 - 2 tab PO Q4H PRN #30 tab 04/21/16 - Patient Allergies Allergies/Adverse Reactions: Allergies Allergy/AdvReac Type Severity Reaction Status Date / Time No Known Allergies Allergy Verified 04/21/16 17:04 Past Medical History - heen HEENT History: Denies History Cardiovascular History: Hypertension, Hyperlipidemia Respiratory History: Home Oxygen Use Additional Respiratory History: 1-2LITERS AT NIGHT Gastrointestinal History: GERD, Irritable Bowel Syndrome Additional Gastrointestinal History: IRRITABLE BOWEL SYNDROME/OBESITY/DIABETIC GASTROPARESIS Genitourinary History: Recurrent UTI, Kidney Stones Endocrine History: Type 2 Diabetes (oral) Musculoskeletal History: Gout, Other (please comment) Prosthesis or Implant: Yes (LEFT HEEL SCREWS, LEFT KNEE REPLACEMENT) Additional Musculoskeletal History: 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 Neurological History: Other (please comment) Additional Neurological History: PERIPHERAL SENSORY NEUROPATHY Blood Disorders: Denies History Psychiatric History: Depression, Anxiety Disorders History of Sexually Transmitted Diseases: No Obstetrical History: Denies History Cancer History: Denies History In Past Year Been Physically Harmed or Verbally Threatened: No History of MDRO: No History of Other Communicable Diseases: No Tobacco Use: Current Every Day Smoker Alcohol Use: None Substance Use Type: None Previous Surgical History: Yes Type / Date of Surgery: APPY/HYSTERECTOMY/BILAT KNEE SCOPES/BILAT FOOT SX/ LEFT ACHILLES TENDON REPAIR/TONSILLECTOMY/R OOPHORECTOMY/LEFT KNEE ACL/ LEFT TKA/ LEFT RCR Anesthesia Reactions: No Malignant Hyperthermia: No Significant Family History: Cancer, Diabetes, Hypertension Chest Pain Progress - Results Reviewed by me Lab Results:: Laboratory Results 04/21/16 Range/Units 17:14 WBC 18.58 H (4.8-10.8) 10^3/uL RBC 4.89 (4.20-5.40) 10^6/uL Hgb 14.5 (12.0-16.0) g/dL Hct 42.8 (37.0-47.0) % MCV 87.5 (81-99) FL MCH 29.7 (27-31) PG MCHC 33.9 (33-37) g/dL RDW Std Deviation 51.8 H (39-50) fL RDW Coeff of Madan 16.5 H (11.5-14.5) % Plt Count 359 H (140-350) 10*3/uL MPV 9.7 (7.4-12.2) FL Immature Gran % (Auto) 0.3 (0-5) % Neut % (Auto) 77.4 (50-80) % Lymph % (Auto) 15.9 (10-50) % [place] % (Auto) 5.3 (5-15) % Eos % (Auto) 0.9 (0-8) % Baso % (Auto) 0.2 (0-1) % Immature Gran # (Auto) 0.06 10*3/UL Neut # (Auto) 14.36 10*3/UL Lymph # (Auto) 2.96 10*3/uL [place] # (Auto) 0.99 H (0.3-0.8) 10*3/UL Eos # (Auto) 0.17 10*3/UL Baso # (Auto) 0.04 10*3/UL WBC Morphology Comment Normal morphology (NORM) Plt Morphology Comment Normal morphology (NORM) RBC Morph Comment Normal morphology (NORM) D-Dimer 1.15 H (0.00-0.59) mg/L Sodium 137 (135-145) meq/L Potassium 4.4 (3.8-5.2) meq/L Chloride 103 (98-112) meq/L Carbon Dioxide 22 L (23-33) meq/L Anion Gap 12 (5-20) BUN 19 (7-22) mg/dL Creatinine 0.8 (0.50-1.20) mg/dL Estimated GFR > 60 (>60 ml/min/1.73m(2)) BUN/Creatinine Ratio 23.75 H (6-20) Glucose 147 H (78-110) mg/dL Calculated Osmolality 288.0 (267-292) mOsm/kg Calcium 9.8 (8.7-10.7) mg/dL Total Bilirubin 0.5 (0.3-1.2) mg/dL AST 53 H (8-39) IU/L ALT 44 (9-52) IU/L Alkaline Phosphatase 94 (38-126) IU/L CK-MB (CK-2) 0.76 (0.00-5.00) NG/DL Troponin I < 0.012 (< 0.040) ng/mL Total Protein 6.7 (6.1-8.0) g/dL Albumin 4.3 (3.5-4.8) g/dL Globulin 2.4 L (2.50-4.10) g/dL Albumin/Globulin Ratio 1.70 (1.3-2.0) mg/g Amylase < 30 L (30-110) U/L Lipase 32 (23-300) IU/L Vital Signs - Recent Vital Signs Vital Signs: Vital Signs (Last 8 hours) Temp Pulse Pulse Resp BP Pulse Ox 04/21/16 17:34 81 17 106/78 94 04/21/16 17:11 96 04/21/16 16:56 98.6 F 88 20 152/101 89 Discharge Condition: Fair
[2016-04-21] MEDS ORDERED: HYDROmorphone 2 MG/1 ML IVP ONE (18:56)
--- NOTE | 2016-04-21 19:30 | DI ---
CT CTA CHEST NONCORONARY W/WO, CT ABD W/CN AND PELVIS W/CN,04/21/2016 6:00 PM: Clinical History: Shortness of breath Previous Exam: March 30, 2016. Findings: Multiple helically acquired CT images are obtained through the chest, abdomen and pelvis following th e intravenous administration of 95 cc of Isovue 300. There is no evidence of filling defect or truncation to suggest pulmonary embolism. There is subsegme ntal atelectasis in the lung bases. Mild degenerative changes are seen of the spine. There is subsegmental atelectasis in the lung bases well. Coronary artery calcifications are seen. There is no lymphadenopathy. Abdomen/pelvis: There is diffuse fatty liver. Patient is status post cholecystectomy. There is a trace amount of fluid along the hepatic and. There is no evidence of biloma nor abscess. Multiple colonic diverticula are noted The spleen, adrenals, kidneys and pancreas are unremarkable. There is a 17 mm lipid rich adenoma within the left adrenal gland. A few small simple cysts are noted. A few peripheral vascular calcifications are seen. Impression: 1. No evidence of pulmonary embolism. 2. Trace amount of fluid within the abdomen without evidence of abscess nor biloma.
--- NOTE | 2016-04-21 19:41 | PDOC ---
Chest Pain HPI - General Chief Complaint: Chest Pain Stated Complaint: chest pain Date Seen by Provider: 04/21/16 Time Seen by Provider: 17:00 Source: Patient Exam Limitations: POSITIVE: No limitations Treatment Prior to Arrival: REPORTS: None Nurse's Notes Reviewed & Considered: Yes - History of Present Illness Initial Comments: The patient is a 61-year-old female. Patient underwent a laparoscopic cholecystectomy this morning, and was discharged from the hospital around noon. She states she felt fine upon discharge. 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 She describes the pain as a "pressure pain". She has a history of morbid obesity, diabetes mellitus and hypertension. She reportedly had a normal cardiac stress test preoperatively. She is status post appendectomy, hysterectomy and oophorectomy, as well as surgical procedures on her knees. She states that she's been nauseated but has not had any vomiting. She complains that her pain is somewhat exacerbated by deep inspiration. Body Location Affected: REPORTS: Chest, Abdomen Timing: REPORTS: Abrupt Duration: 1-3 hours Severity: Moderate Persistent/Worse since (date): 04/21/16 Persistent/Worse since (time): 16:00 Context: REPORTS: Rest Quality: REPORTS: "Pain" Radiation: REPORTS: None Associated Symptoms: REPORTS: Nausea, Hurts to Breathe. DENIES: Vomiting, Diaphoresis, Shortness of Breath, Palpitations, Productive Cough (blood), Productive Cough (sputum), Weakness, Dizziness Modifying Factors: improves with: Deep breathing, Other (Somewhat worse with lying flat) Similar Symptoms Previously: No Recently seen/treated/hospitalized: Yes (as above) Any Prior Injuries Related to Current Complaint?: No - Patient Home Medications Home Medications: Home Medications Lisinopril/Hydrochlorothiazide [Lisinopril-Hctz 20-12.5 mg Tab] 1 tab PO DAILY 01/24/12 Pantoprazole Sodium [Protonix] 1 tab PO DAILY 01/24/12 Allopurinol 1 tab PO DAILY 11/06/13 Sertraline HCl [Zoloft] 1 tab PO DAILY tab 02/13/14 Potassium Chloride [Klor-Con] 1 tab PO DAILY 11/20/14 Zolpidem Tartrate [Ambien] 1 tab PO QHS #30 02/05/16 Oxybutynin Chloride [Oxybutynin Chloride ER] 10 mg PO DAILY 03/31/16 Gemfibrozil [Lopid] 600 mg PO AC BK DIN #60 tab 04/02/16 Gabapentin 1 cap PO DAILY #30 cap 04/11/16 Saxagliptin HCl [Onglyza] 5 mg PO DAILY #30 tab 04/11/16 HYDROcodone/APAP 7.5/325 Tab [Maynard 7.5/325 Tab] 1 - 2 tab PO Q4H PRN #30 tab 04/21/16 - Patient Allergies Allergies/Adverse Reactions: Allergies Allergy/AdvReac Type Severity Reaction Status Date / Time No Known Allergies Allergy Verified 04/21/16 17:04 Past Medical History - heen HEENT History: Denies History Cardiovascular History: Hypertension, Hyperlipidemia Respiratory History: Home Oxygen Use Additional Respiratory History: 1-2LITERS AT NIGHT Gastrointestinal History: GERD, Irritable Bowel Syndrome Additional Gastrointestinal History: IRRITABLE BOWEL SYNDROME/OBESITY/DIABETIC GASTROPARESIS Genitourinary History: Recurrent UTI, Kidney Stones Endocrine History: Type 2 Diabetes (oral) Musculoskeletal History: Gout, Other (please comment) Prosthesis or Implant: Yes (LEFT HEEL SCREWS, LEFT KNEE REPLACEMENT) Additional Musculoskeletal History: 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 Neurological History: Other (please comment) Additional Neurological History: PERIPHERAL SENSORY NEUROPATHY Blood Disorders: Denies History Psychiatric History: Depression, Anxiety Disorders History of Sexually Transmitted Diseases: No Obstetrical History: Denies History Cancer History: Denies History In Past Year Been Physically Harmed or Verbally Threatened: No History of MDRO: No History of Other Communicable Diseases: No Tobacco Use: Current Every Day Smoker Alcohol Use: None Substance Use Type: None Previous Surgical History: Yes Type / Date of Surgery: APPY/HYSTERECTOMY/BILAT KNEE SCOPES/BILAT FOOT SX/ LEFT ACHILLES TENDON REPAIR/TONSILLECTOMY/R OOPHORECTOMY/LEFT KNEE ACL/ LEFT TKA/ LEFT RCR Anesthesia Reactions: No Malignant Hyperthermia: No Significant Family History: Cancer, Diabetes, Hypertension Past Medical History Reviewed: Reviewed - No Changes ROS - Limitations ROS Limitations: No Limitations Constitution: REPORTS: Denies Symptoms Cardiovascular: REPORTS: Chest Pain Respiratory: REPORTS: Hurts To Breathe Neurological: REPORTS: Denies Neuro Symptoms Gastrointestinal: REPORTS: Abdominal Pain, Nausea Endocrine: REPORTS: Denies Symptoms Musculoskeletal: REPORTS: Denies MS Symptoms Genitourinary: REPORTS: Denies Symptoms Eyes: REPORTS: Denies Symptoms ENT: REPORTS: Denies Symptoms Skin: REPORTS: Denies Skin Symptoms Lympathic: REPORTS: Denies Lympathic Symptoms Immunologic: POSITIVE: Denies Symptoms Psychiatric: POSITIVE: Denies Psych Symptoms Chest Pain PE - General Appearance General Appearance: REPORTS: Alert, Cooperative, No Acute Distress, No Evidence of Trauma, Anxious - HEENT HEENT: POSITIVE: Head Inspection Nml, Eyes Inspection Nml, Ears Inspection Nml, Nose Inspection Nml, Oral/Dental Inspect. Nml, Pharynx Inspect. Nml, PERRL, EOMI - Neck Neck: REPORTS: Normal Inspection, No Carotid Bruit - Respiratory Respiratory: REPORTS: No Respiratory Distress, Breath Sounds Normal, Chest Non- Tender - Cardiovascular Cardiovascular: REPORTS: Regular Rate and Rhythm, Heart Sounds Normal, Equal Pulses, Strong Pulses, No Murmur, No Gallop, No Friction Rub, No JVD Peripheral Pulses: Radial (R): 2+, Radial (L): 2+ - Abdomen Abdomen: Soft: (All Quadrants), Normal Bowel Sounds: (All Quadrants), Denies Tenderness: (LLQ), (RLQ), No Splenomegaly: (All Quadrants), No Hepatomegaly: ( All Quadrants), No Guarding: (All Quadrants), No Rebound: (All Quadrants), No Palpable Pulse: (All Quadrants), No Palpabale Mass: (All Quadrants), No Distention: (All Quadrants), No Rigidity: (All Quadrants), (RUQ), (LUQ) - Skin Skin: REPORTS: Intact, Normal For Race, Warm, Dry, No Rash - Extremities Extremity: Non-Tender: (All Extremities), Normal ROM: (All Extremities), Normal Inspection: (All Extremities) - Neurological / Psychological Neurological: POSITIVE: Oriented X3, extruder tender Normal As Tested, Motor Normal, Sensation Normal, 5, 6 Images - Complete Complete: 1 - Area of described pain Chest Pain Progress - Results Reviewed by me Xrays/CTs/US Reviewed by me: Yes Discussed with Radiologist: Yes Radiology Findings: PA chest x-ray shows poor inspiratory effort; no infiltrates ; probably some congestion. CTA chest is reported by radiologist as showing no pulmonary emboli. CT abdomen and pelvis with IV contrast read by radiologist as unremarkable; some fluid in the gallbladder fossa. Lab Results Reviewed: Yes Lab Results:: Laboratory Results 04/21/16 Range/Units 17:14 WBC 18.58 H (4.8-10.8) 10^3/uL RBC 4.89 (4.20-5.40) 10^6/uL Hgb 14.5 (12.0-16.0) g/dL Hct 42.8 (37.0-47.0) % MCV 87.5 (81-99) FL MCH 29.7 (27-31) PG MCHC 33.9 (33-37) g/dL RDW Std Deviation 51.8 H (39-50) fL RDW Coeff of Madan 16.5 H (11.5-14.5) % Plt Count 359 H (140-350) 10*3/uL MPV 9.7 (7.4-12.2) FL Immature Gran % (Auto) 0.3 (0-5) % Neut % (Auto) 77.4 (50-80) % Lymph % (Auto) 15.9 (10-50) % [place] % (Auto) 5.3 (5-15) % Eos % (Auto) 0.9 (0-8) % Baso % (Auto) 0.2 (0-1) % Immature Gran # (Auto) 0.06 10*3/UL Neut # (Auto) 14.36 10*3/UL Lymph # (Auto) 2.96 10*3/uL [place] # (Auto) 0.99 H (0.3-0.8) 10*3/UL Eos # (Auto) 0.17 10*3/UL Baso # (Auto) 0.04 10*3/UL WBC Morphology Comment Normal morphology (NORM) Plt Morphology Comment Normal morphology (NORM) RBC Morph Comment Normal morphology (NORM) D-Dimer 1.15 H (0.00-0.59) mg/L Sodium 137 (135-145) meq/L Potassium 4.4 (3.8-5.2) meq/L Chloride 103 (98-112) meq/L Carbon Dioxide 22 L (23-33) meq/L Anion Gap 12 (5-20) BUN 19 (7-22) mg/dL Creatinine 0.8 (0.50-1.20) mg/dL Estimated GFR > 60 (>60 ml/min/1.73m(2)) BUN/Creatinine Ratio 23.75 H (6-20) Glucose 147 H (78-110) mg/dL Calculated Osmolality 288.0 (267-292) mOsm/kg Calcium 9.8 (8.7-10.7) mg/dL Total Bilirubin 0.5 (0.3-1.2) mg/dL AST 53 H (8-39) IU/L ALT 44 (9-52) IU/L Alkaline Phosphatase 94 (38-126) IU/L CK-MB (CK-2) 0.76 (0.00-5.00) NG/DL Troponin I < 0.012 (< 0.040) ng/mL Total Protein 6.7 (6.1-8.0) g/dL Albumin 4.3 (3.5-4.8) g/dL Globulin 2.4 L (2.50-4.10) g/dL Albumin/Globulin Ratio 1.70 (1.3-2.0) mg/g Amylase < 30 L (30-110) U/L Lipase 32 (23-300) IU/L EKG Interpreted/Reviewed By Me:: Yes (normal) EKG Interpretation:: POSITIVE: Normal Sinus Rhythm, Normal Rate, Normal Intervals, Normal [place], Normal QRS, Normal ST/T - Patient's Progress Pain Medication Addressed: POSITIVE: Yes (Patient medicated with a total of 3 mg of Dilaudid in the emergency room with partial relief of pain) School/Work Release Addressed: POSITIVE: Not Applicable Re-Examine Time: 19:25 Re-Examine Comment: Results of radiologic and laboratory studies discussed with patient. Clear cause of pain not clear at this time. Patient discussed with Dr. Monzon, who has admitted the patient for further evaluation and treatment. Status: POSITIVE: Improved, Re-Examined Quality Measure Initiative: CP/AMI: POSITIVE: EKG, ASA - Consult Consult (If Yes, Name of Consulting MD & Time Called): Yes (Dr. Monzon, 192 ) Consulting MD will see pt:: POSITIVE: [facility] Admit Counseled: POSITIVE: Patient, Family, RE: Lab Results, RE: Radiology Results, RE : DX, RE: Need for F/U Patient Care Time - Estimated PCT Patient Care Time (In Minutes): 60 Vital Signs - Recent Vital Signs Vital Signs: Vital Signs (Last 8 hours) Temp Pulse Pulse Resp BP Pulse Ox 04/21/16 17:34 81 17 106/78 94 04/21/16 17:11 96 04/21/16 16:56 98.6 F 88 20 152/101 89 - VS Reviewed Vital Signs Reviewed: Yes Discharge Clinical Impression: Chest pain, Abdominal pain Discharge Disposition: Admit to Inpatient Condition: Fair Date Decision to Admit to Inpatient: 04/21/16 Time Decision to Admit to Inpatient: 19:20
[2016-04-21] MEDS ORDERED: HYDROmorphone 2 MG/1 ML IVP PRN ×2 (20:16→21:03)
[2016-04-21] MEDS: KETOROLAC 15 MG/1 ML VIAL IVP SCH (20:42)
[2016-04-21] MEDS: Lactated Ringers 1,000 ML PRIMARY IV SCH (20:42)
[2016-04-21] MEDS: ONDANSETRON 4 MG/2 ML VIAL IVP PRN (20:42)
[2016-04-21] MEDS: HYDROcodone-APAP 7.5 MG-325 MG TABLET PO PRN (20:43)
[2016-04-21] MEDS ORDERED: ZOLPIDEM 10 MG TABLET PO SCH (21:00)
[2016-04-21] MEDS ORDERED: CALCIUM CARBONATE 500 MG (TUMS) CHEWABLE TABLET PO PRN (21:09)
--- NOTE | 2016-04-21 21:11 | PDOC ---
History and Physical - History of Present Illness Date and Time of Service: 04/21/2016, 2104 Chief Complaint: Midepigastric and chest pain History of Present Illness: This very pleasant 61-year-old female who was just recently admitted for chest pain. She ruled out for myocardial infarction and she had a negative stress test on that admission, but appeared to have pulmonary hypertension and also had what appeared to be biliary dyskinesia. She had her gallbladder removed today. Postoperatively, the patient was actually doing quite well and went home. She laid down to try and rest, and developed severe chest pain that was worse with movement and with deep breathing. Thus far, pain medications have not helped reduce the pain. On top of all this, she recently was diagnosed with obstructive sleep apnea. She has not been started on CPAP therapy but did titrate well on it during her sleep study. She did need oxygen for hypoxemia noted on the study. There appeared to be no other exacerbating factors, and workup in the emergency room was negative for etiology of chest pain. EKG showed normal sinus rhythm and a CT scan of the chest did not show any pulmonary emboli. On my review of her record, I do note that her HIDA scan was also significant for reflux through the duodenum and into the stomach. She did not have an EGD prior to surgery and is on Protonix daily. She does smoke cigarettes. Past Medical History Medical History: 1. Hypertension. 2. Diabetes. 3. Gout. 4. Peripheral neuropathy. 5. Probable GERD. 6. Obstructive sleep apnea, on oxygen therapy at night. CPAP therapy to be initiated post hospital stay. Surgical History: 1. Status post cholecystectomy today. 2. Hysterectomy. 3. Arthroscopic knee surgeries. 4. Tonsillectomy. 5. Appendectomy. 6. Unilateral oophorectomy. 7. Achilles tendon repair Pertinent Family History: Father had myocardial infarction Past Social History: Smokes. Does not drink alcohol. Tobacco Use: Current Every Day Smoker Substance Use Type: None Alcohol Use: None Medication / Allergies Home Medications: Home Medications Medication Instructions Recorded Confirmed Type Lisinopril/Hydrochlorothiazide 1 tab PO DAILY 01/24/12 04/21/16 History [Lisinopril-Hctz 20-12.5 mg Tab] Pantoprazole Sodium [Protonix] 1 tab PO DAILY 01/24/12 04/21/16 History Allopurinol 1 tab PO DAILY 11/06/13 04/21/16 History Sertraline HCl [Zoloft] 1 tab PO DAILY tab 02/13/14 04/21/16 History Potassium Chloride [Klor-Con] 1 tab PO DAILY 11/20/14 04/21/16 History Zolpidem Tartrate [Ambien] 1 tab PO QHS #30 02/05/16 04/21/16 Clinic Oxybutynin Chloride [Oxybutynin 10 mg PO DAILY 03/31/16 04/21/16 History Chloride ER] Gemfibrozil [Lopid] 600 mg PO AC BK DIN #60 tab 04/02/16 04/21/16 Rx Gabapentin 1 cap PO DAILY #30 cap 04/11/16 04/21/16 Clinic Saxagliptin HCl [Onglyza] 5 mg PO DAILY #30 tab 04/11/16 04/21/16 Clinic HYDROcodone/APAP 7.5/325 Tab 1 - 2 tab PO Q4H PRN #30 tab 04/21/16 04/21/16 Rx [Lebeau 7.5/325 Tab] Allergies/Adverse Reactions: Allergies Allergy/AdvReac Type Severity Reaction Status Date / Time No Known Allergies Allergy Verified 04/21/16 20:25 Review of Systems - Respiratory Respiratory: REPORTS: Pleuritic Pain, See HPI - Cardiovascular Cardiovascular: REPORTS: Chest Pain - Gastrointestinal Gastrointestinal / Abdominal: REPORTS: Abdominal Pain - Additonal Details Additional ROS Details: Positive for sleep apnea. Patient stated she followed up on pulmonary hypertension and was told that this was not an issue. Exam - Vitals Vital Signs: Vital Signs Temperature 98.6 F Temperature Source Temporal Artery Scan Pulse Rate [Pulse Oximeter 81 Right] Respiratory Rate 17 Blood Pressure [Left Arm] 106/78 Pulse Ox 94 Oxygen Flow Rate 3 Oxygen Delivery Method Nasal Cannula Height 5 ft 2 in Weight 241 lb 3.2 oz - General General Appearance: POSITIVE: No Acute Distress, Cooperative - Head Head Exam: POSITIVE: Normal Inspection, Normocephalic, Atraumatic - Eye Eye Exam: POSITIVE: No Scleral Icterus - ENT ENT Exam: POSITIVE: Mucous Membranes Moist - Neck Neck Exam: POSITIVE: Normal Inspection, No Thyromegaly - Respiratory Respiratory Exam: POSITIVE: Clear to Auscultation - Bilaterally, Breathing Non Labored - Cardiovascular Cardiovascular Exam: POSITIVE: RRR, No Murmur, No Clicks, No Gallops, No Rubs, No JVD - GI/Abdominal GI/Abdominal Exam: POSITIVE: Normal Bowel Sounds, Non Tender, Non Distended, Soft Additional GI/Abdominal Exam Details: Incisions noted from cholecystectomy today, dressed, clean, dry, intact - Rectal Rectal Exam: POSITIVE: Deferred - External Exam: POSITIVE: Deferred - Extremities Extremities Exam: POSITIVE: No Clubbing Present, No Edema Present, No Cyanosis Present - Neurological Neurological Exam: POSITIVE: Alert, Oriented x 3, No Facial Droop, Speech Intact / Clear, Moves All Extremities Equally - Psychiatric Psychiatric Exam: POSITIVE: Normal Affect, Normal Mood, Anxious Results - Labs CBC and BMP: 04/21/16 17:14 04/21/16 17:14 Labs - Last 24 Hours: Laboratory Results 04/21/16 04/21/16 Range/Units 17:00 17:14 WBC 18.58 H (4.8-10.8) 10^3/uL RBC 4.89 (4.20-5.40) 10^6/uL Hgb 14.5 (12.0-16.0) g/dL Hct 42.8 (37.0-47.0) % MCV 87.5 (81-99) FL MCH 29.7 (27-31) PG MCHC 33.9 (33-37) g/dL RDW Std Deviation 51.8 H (39-50) fL RDW Coeff of Madan 16.5 H (11.5-14.5) % Plt Count 359 H (140-350) 10*3/uL MPV 9.7 (7.4-12.2) FL Immature Gran % (Auto) 0.3 (0-5) % Neut % (Auto) 77.4 (50-80) % Lymph % (Auto) 15.9 (10-50) % [place] % (Auto) 5.3 (5-15) % Eos % (Auto) 0.9 (0-8) % Baso % (Auto) 0.2 (0-1) % Immature Gran # (Auto) 0.06 10*3/UL Neut # (Auto) 14.36 10*3/UL Lymph # (Auto) 2.96 10*3/uL [place] # (Auto) 0.99 H (0.3-0.8) 10*3/UL Eos # (Auto) 0.17 10*3/UL Baso # (Auto) 0.04 10*3/UL WBC Morphology Comment Normal morphology (NORM) Plt Morphology Comment Normal morphology (NORM) RBC Morph Comment Normal morphology (NORM) D-Dimer 1.15 H (0.00-0.59) mg/L Sodium 137 (135-145) meq/L Potassium 4.4 (3.8-5.2) meq/L Chloride 103 (98-112) meq/L Carbon Dioxide 22 L (23-33) meq/L Anion Gap 12 (5-20) BUN 19 (7-22) mg/dL Creatinine 0.8 (0.50-1.20) mg/dL Estimated GFR > 60 (>60 ml/min/1.73m(2)) BUN/Creatinine Ratio 23.75 H (6-20) Glucose 147 H (78-110) mg/dL Calculated Osmolality 288.0 (267-292) mOsm/kg Calcium 9.8 (8.7-10.7) mg/dL Total Bilirubin 0.5 (0.3-1.2) mg/dL AST 53 H (8-39) IU/L ALT 44 (9-52) IU/L Alkaline Phosphatase 94 (38-126) IU/L CK-MB (CK-2) 0.76 (0.00-5.00) NG/DL Troponin I < 0.012 (< 0.040) ng/mL NT-Pro-B Natriuret Pep 84.1 (0-125) PG/ML Total Protein 6.7 (6.1-8.0) g/dL Albumin 4.3 (3.5-4.8) g/dL Globulin 2.4 L (2.50-4.10) g/dL Albumin/Globulin Ratio 1.70 (1.3-2.0) mg/g Amylase < 30 L (30-110) U/L Lipase 32 (23-300) IU/L - EKG Data -: EKG Interpreted by Me Rate: Normal EKG Shows Normal: Sinus Rhythm - Imaging Status: Image Reviewed by Me (I reviewed the CT scan of the chest. It appeared negative for pneumonia. The radiologist felt it was negative for pulmonary emboli. Notable for fatty liver.) Assessment and Plan - Patient Problems (1) Chest pain Current Visit: Yes Status: Acute (2) Poorly controlled type 2 diabetes mellitus Current Visit: Yes Status: Chronic (3) Hypertension Current Visit: Yes Status: Chronic Qualifiers: Hypertension type: essential hypertension Qualified Description: Essential hypertension Qualifier Code(s): (I10) Essential (primary) hypertension (4) Obstructive sleep apnea Current Visit: Yes Status: Acute (5) Hypertriglyceridemia Current Visit: Yes Status: Acute (6) GERD (gastroesophageal reflux disease) Current Visit: Yes Status: Acute Qualifiers: Esophagitis presence: esophagitis presence not specified Qualified Description: Gastroesophageal reflux disease, esophagitis presence not specified Qualifier Code(s): (K21.9) Gastro-esophageal reflux disease without esophagitis - Assessment / Plan Additional Assessment/Plan Details: Admit the patient. Pain control. Add Tums and also add Protonix to an IV state to try and increase blood level. Ultimately the patient probably would benefit from an EGD and most likely from pH monitoring. If she has reflux disease that is not responding to proton pump inhibitor, the patient may need consideration for August fundoplication. There could be some phrenic nerve irritation causing the pleuritic pain component. She probably doubt myocardial infarction. With negative EKG and negative troponin, negative recent Lexiscan stress test, highly doubtful that this was cardiac in nature. We need to start CPAP therapy post hospitalization. Thank you for allowing us to consult on this patient. Will be our pleasure to continue to assist in the management of this patient during her hospital stay.
--- NOTE | 2016-04-21 22:44 | EKG ---
[address] [address] Measurements Intervals [place] Rate: 84 P: 42 AR: 174 QRS: 37 QRSD: 85 T: 52 QT: 361 QTc: 402 Interpretive Statements SINUS RHYTHM INTERPRETATION BASED ON A DEFAULT AGE OF 40 YEARS Compared to ECG 03/30/2016 19:13:04 T-wave abnormality no longer present Electronically Signed On 04-23-16 13:37:41 MST by Yassine Griffin MD [email or web address]
[2016-04-22] MEDS ORDERED: HYDROmorphone 2 MG/1 ML IVP PRN (00:36)
[2016-04-22] MEDS: HYDROcodone-APAP 7.5 MG-325 MG TABLET PO PRN ×4 (00:38→13:22)
[2016-04-22] MEDS: KETOROLAC 15 MG/1 ML VIAL IVP SCH ×2 (02:23→09:10)
[2016-04-22] MEDS: Lactated Ringers 1,000 ML PRIMARY IV SCH (05:30)
[2016-04-22 06:47] LABS: BASOPHILS # (AUTO) 0.03 10*3/UL; BASOPHILS % (AUTO) 0.2 % (0-1); EOSINOPHILS % (AUTO) 2.9 % (0-8); HEMATOCRIT 41.2 % (37.0-47.0); HEMOGLOBIN 13.2 g/dL (12.0-16.0); IMM GRAN % (AUTO) 0.2 % (0-5); IMM GRAN# (AUTO) 0.03 10*3/UL; LYMPHOCYTES # (AUTO) 2.39 10*3/uL; LYMPHOCYTES % (AUTO) 18.7 % (10-50); MEAN CORPUSCULAR HEMOGLOBIN 28.5 PG (27-31); MEAN PLATELET VOLUME 9.7 FL (7.4-12.2); MONOCYTES # (AUTO) 0.95 10*3/UL (0.3-0.8); MONOCYTES % (AUTO) 7.4 % (5-15); NEUTROPHILS % (AUTO) 70.6 % (50-80); RDW COEFFICIENT OF VARIATION 16.3 % (11.5-14.5); RED BLOOD COUNT 4.63 10^6/uL (4.20-5.40); WHITE BLOOD COUNT 12.77 10^3/uL (4.8-10.8)
[2016-04-22 06:50] LABS: PLATELET MORPHOLOGY COMMENT NORMAL MORPHOLOGY (NORM)
[2016-04-22] MEDS ORDERED: GEMFIBROZIL 600 MG TABLET PO SCH (07:00)
[2016-04-22] MEDS ORDERED: PANTOPRAZOLE 40 MG TABLET PO SCH (07:00)
[2016-04-22 07:05] LABS: ASPARTATE AMINO TRANSFERASE 39 IU/L (8-39); BILIRUBIN,TOTAL 0.6 mg/dL (0.3-1.2); BLOOD UREA NITROGEN 18 mg/dL (7-22); CALCIUM 9.4 mg/dL (8.7-10.7); CHLORIDE 102 meq/L (98-112); CREATININE 0.9 mg/dL (0.50-1.20); EST GLOMERULAR FILTRATION > 60 (>60 ml/min/1.73m(2)); GLUCOSE 122 mg/dL (78-110); POTASSIUM 4.3 meq/L (3.8-5.2); SODIUM 137 meq/L (135-145); TOTAL PROTEIN 6.3 g/dL (6.1-8.0)
[2016-04-22] MEDS ORDERED: Sertraline Tab 50 MG TAB PO SCH (09:00)
[2016-04-22] MEDS ORDERED: HYDROCHLOROTHIAZIDE 12.5 MG CAPSULE PO SCH (09:00)
[2016-04-22] MEDS ORDERED: LISINOPRIL 20 MG TABLET PO SCH (09:00)
[2016-04-22] MEDS ORDERED: SAXAGLIPTIN HCL 5 MG PO SCH (09:00)
[2016-04-22] MEDS ORDERED: Oxybutynin ER Tab 5 MG TAB PO SCH (09:00)
[2016-04-22] MEDS ORDERED: ALLOPURINOL 300 MG TABLET PO SCH (09:00)
[2016-04-22] MEDS ORDERED: GABAPENTIN 300 MG CAPSULE PO SCH (09:00)
[2016-04-22] MEDS: ONDANSETRON 4 MG/2 ML VIAL IVP PRN (10:30)
[2016-04-22] MEDS ORDERED: Pantoprazole Inj 80 MG in Normal Saline Flush 10 ML IVP ONE (11:51)
[2016-04-22] MEDS ORDERED: Famotidine Inj 20 MG in Normal Saline Flush 10 ML IVP ONE (11:53)
[2016-04-22 12:00] VITALS: RESP 20; TEMP 97.2
--- NOTE | 2016-04-22 12:26 | PDOC(PROG) ---
Subjective Post Op Day: postop day 1 Pain Management: PO Bailey Catheter: No Flatus: Yes Diet: Regular Ambulating: Yes Date and Time of Service: 04/23/2015 at 1225 Interval History: Patient is doing very well. She had midepigastric pain /chest pain. She was 6 hours postoperatively from her laparoscopic cholecystectomy. She states that her pain was a 12 out of 10. We had her go to the emergency department with a complete workup to rule out PE and cardiac event. Because the pain she is admitted for observation. Today she is is pain-free. She is tolerating diet. Objective : Data - Labs CBC and BMP: 04/22/16 06:13 04/22/16 06:13 Labs - Last 24 Hours: Laboratory Results 04/22/16 Range/Units 06:13 WBC 12.77 H (4.8-10.8) 10^3/uL RBC 4.63 (4.20-5.40) 10^6/uL Hgb 13.2 (12.0-16.0) g/dL Hct 41.2 (37.0-47.0) % MCV 89.0 (81-99) FL MCH 28.5 (27-31) PG MCHC 32.0 L (33-37) g/dL RDW Std Deviation 52.2 H (39-50) fL RDW Coeff of Madan 16.3 H (11.5-14.5) % Plt Count 321 (140-350) 10*3/uL MPV 9.7 (7.4-12.2) FL Immature Gran % (Auto) 0.2 (0-5) % Neut % (Auto) 70.6 (50-80) % Lymph % (Auto) 18.7 (10-50) % [place] % (Auto) 7.4 (5-15) % Eos % (Auto) 2.9 (0-8) % Baso % (Auto) 0.2 (0-1) % Immature Gran # (Auto) 0.03 10*3/UL Neut # (Auto) 9.00 10*3/UL Lymph # (Auto) 2.39 10*3/uL [place] # (Auto) 0.95 H (0.3-0.8) 10*3/UL Eos # (Auto) 0.37 10*3/UL Baso # (Auto) 0.03 10*3/UL WBC Morphology Comment Normal morphology (NORM) Plt Morphology Comment Normal morphology (NORM) RBC Morph Comment Normal morphology (NORM) Sodium 137 (135-145) meq/L Potassium 4.3 (3.8-5.2) meq/L Chloride 102 (98-112) meq/L Carbon Dioxide 24 (23-33) meq/L Anion Gap 11 (5-20) BUN 18 (7-22) mg/dL Creatinine 0.9 (0.50-1.20) mg/dL Estimated GFR > 60 (>60 ml/min/1.73m(2)) BUN/Creatinine Ratio 20.00 (6-20) Glucose 122 H (78-110) mg/dL Calculated Osmolality 286.0 (267-292) mOsm/kg Calcium 9.4 (8.7-10.7) mg/dL Total Bilirubin 0.6 (0.3-1.2) mg/dL AST 39 (8-39) IU/L ALT 38 (9-52) IU/L Alkaline Phosphatase 87 (38-126) IU/L Total Protein 6.3 (6.1-8.0) g/dL Albumin 3.7 (3.5-4.8) g/dL Globulin 2.6 (2.50-4.10) g/dL Albumin/Globulin Ratio 1.40 (1.3-2.0) mg/g - Vital Signs Vital Signs and I&O: Vital Signs - Last Taken Temperature 97.2 F 04/22/16 11:59 Pulse Rate 80 04/22/16 11:59 Respiratory Rate 20 04/22/16 11:59 Blood Pressure 130/73 04/22/16 11:59 Pulse Ox 92 04/22/16 11:59 Intake and Output (24hr x 4 totals) 04/20/16 04/21/16 04/22/16 04/23/16 05:59 05:59 05:59 05:59 Intake Total 2275 240 Output Total 200 425 Balance 2075 -185 Objective : Exam - General General Appearance: No Acute Distress, Cooperative - Respiratory Respiratory Exam: Clear to Auscultation - Bilaterally - Cardiovascular Cardiovascular Exam: RRR - GI/Abdominal GI/Abdominal Exam: Non Tender, Non Distended, Soft Assessment and Plan - Patient Problems (1) Abdominal pain Current Visit: Yes Status: Acute (2) Chest pain Current Visit: Yes Status: Acute Comment: I did recheck her the most likely patient had some reflux last night. This causes her to have esophageal spasm. I do not think she had any postoperative problems. She'll be scheduled for an outpatient EGD. I talked about starting Reglan she would like to wait the results of EGD (3) GERD (gastroesophageal reflux disease) Current Visit: Yes Status: Acute Qualifiers: Esophagitis presence: esophagitis presence not specified Qualified Description: Gastroesophageal reflux disease, esophagitis presence not specified Qualifier Code(s): (K21.9) Gastro-esophageal reflux disease without esophagitis
--- NOTE | 2016-04-22 14:14 | DCSUMMARY ---
Hospitalization Summary Admit Date: 04/21/16 Discharge Date: 04/22/16 Primary Diagnosis:: GERD with possible esophageal spasm Hospital Course: This very pleasant 61-year-old female that was admitted for chest pain post laparoscopic cholecystectomy performed by Dr. Sandoval yesterday. Please see his surgical notes. Postoperatively, the patient developed chest pain and was admitted here. She had a recent negative stress test, negative troponin, and a negative EKG on admission. Her pain persisted and improved with Dilaudid, and she could not tell if she really had any improvements with additional Tums. I gave protonic's and a total of 40 mg IV, and then dosed another 80 mg IV prior to discharge. The patient's pain has decreased from a 10 to a 7 she feels [address] better[address] Dr. Sandoval felt the patient could go home. I did see her and evaluated her today. She had no shortness of breath., Lessened chest and pleuritic pain. Some nausea but no vomiting. Was able to tolerate a diet. We also wrote a prescription for her CPAP therapy to arrange that through a local oxygen company. Assessment and Plan: 1. As per discharge assessments noted 2. Disposition: Patient is discharged home. 3. Condition on discharge, stable and improved. 4. Diet: regular diet 5. Activities: resume normal activities 6. Follow-Up: 1. [Surgery in 1 week 2. Primary care provider in one week 7. Medications at the Time of Discharge: Home Medications Medication Instructions Recorded Confirmed Type Lisinopril/Hydrochlorothiazide 1 tab PO DAILY 01/24/12 04/21/16 History [Lisinopril-Hctz 20-12.5 mg Tab] Pantoprazole Sodium [Protonix] 1 tab PO DAILY 01/24/12 04/21/16 History Allopurinol 1 tab PO DAILY 11/06/13 04/21/16 History Sertraline HCl [Zoloft] 1 tab PO DAILY tab 02/13/14 04/21/16 History Potassium Chloride [Klor-Con] 1 tab PO DAILY 11/20/14 04/21/16 History Zolpidem Tartrate [Ambien] 1 tab PO QHS #30 02/05/16 04/21/16 Clinic Oxybutynin Chloride [Oxybutynin 10 mg PO DAILY 01/30/17 02/20/17 History Chloride ER] Gemfibrozil [Lopid] 600 mg PO AC BK DIN #60 tab 04/02/16 04/21/16 Rx Gabapentin 1 cap PO DAILY #30 cap 04/11/16 04/21/16 Clinic Saxagliptin HCl [Onglyza] 5 mg PO DAILY #30 tab 04/11/16 04/21/16 Clinic HYDROcodone/APAP 7.5/325 Tab 1 - 2 tab PO Q4H PRN #30 tab 04/21/16 04/21/16 Rx [Hi Hat 7.5/325 Tab] 8. Time, care, counseling and coordination of care for this discharge is greater than 30 minutes. Exam - Vitals Vital Signs: Vital Signs Temperature 97.2 F Temperature Source Temporal Artery Scan Pulse Rate [Pulse Oximeter 80 Right] Respiratory Rate 20 Blood Pressure [Left Arm] 130/73 Pulse Ox 92 Oxygen Flow Rate 4 Oxygen Delivery Method Nasal Cannula Height 5 ft 2 in Weight 245 lb 3.2 oz - General General Appearance: POSITIVE: No Acute Distress, Cooperative - Head Head Exam: POSITIVE: Atraumatic - Respiratory Respiratory Exam: POSITIVE: Clear to Auscultation - Bilaterally, Breathing Non Labored - Cardiovascular Cardiovascular Exam: POSITIVE: RRR, No Murmur, No Clicks, No Gallops, No Rubs, No JVD - GI/Abdominal GI/Abdominal Exam: POSITIVE: Normal Bowel Sounds, Non Distended, Soft Additional GI/Abdominal Exam Details: Midepigastric tenderness to palpation. - Extremities Extremities Exam: POSITIVE: No Clubbing Present, No Edema Present, No Cyanosis Present - Neurological Neurological Exam: POSITIVE: Alert, Oriented x 3, No Facial Droop, Speech Intact / Clear, Moves All Extremities Equally Data Perinent Studies: Laboratory Results 04/21/16 04/21/16 04/22/16 Range/Units 17:00 17:14 06:13 WBC 18.58 H 12.77 H (4.8-10.8) 10^3/uL RBC 4.89 4.63 (4.20-5.40) 10^6/uL Hgb 14.5 13.2 (12.0-16.0) g/dL Hct 42.8 41.2 (37.0-47.0) % MCV 87.5 89.0 (81-99) FL MCH 29.7 28.5 (27-31) PG MCHC 33.9 32.0 L (33-37) g/dL RDW Std Deviation 51.8 H 52.2 H (39-50) fL RDW Coeff of Madan 16.5 H 16.3 H (11.5-14.5) % Plt Count 359 H 321 (140-350) 10*3/uL MPV 9.7 9.7 (7.4-12.2) FL Immature Gran % (Auto) 0.3 0.2 (0-5) % Neut % (Auto) 77.4 70.6 (50-80) % Lymph % (Auto) 15.9 18.7 (10-50) % Valencia % (Auto) 5.3 7.4 (5-15) % Eos % (Auto) 0.9 2.9 (0-8) % Baso % (Auto) 0.2 0.2 (0-1) % Immature Gran # (Auto) 0.06 0.03 10*3/UL Neut # (Auto) 14.36 9.00 10*3/UL Lymph # (Auto) 2.96 2.39 10*3/uL Valencia # (Auto) 0.99 H 0.95 H (0.3-0.8) 10*3/UL Eos # (Auto) 0.17 0.37 10*3/UL Baso # (Auto) 0.04 0.03 10*3/UL WBC Morphology Comment Normal morphology Normal morphology (NORM) Plt Morphology Comment Normal morphology Normal morphology (NORM) RBC Morph Comment Normal morphology Normal morphology (NORM) D-Dimer 1.15 H (0.00-0.59) mg/L Sodium 137 137 (135-145) meq/L Potassium 4.4 4.3 (3.8-5.2) meq/L Chloride 103 102 (98-112) meq/L Carbon Dioxide 22 L 24 (23-33) meq/L Anion Gap 12 11 (5-20) BUN 19 18 (7-22) mg/dL Creatinine 0.8 0.9 (0.50-1.20) mg/dL Estimated GFR > 60 > 60 (>60 ml/min/1.73m(2)) BUN/Creatinine Ratio 23.75 H 20.00 (6-20) Glucose 147 H 122 H (78-110) mg/dL Calculated Osmolality 288.0 286.0 (267-292) mOsm/kg Calcium 9.8 9.4 (8.7-10.7) mg/dL Total Bilirubin 0.5 0.6 (0.3-1.2) mg/dL AST 53 H 39 (8-39) IU/L ALT 44 38 (9-52) IU/L Alkaline Phosphatase 94 87 (38-126) IU/L CK-MB (CK-2) 0.76 (0.00-5.00) NG/DL Troponin I < 0.012 (< 0.040) ng/mL NT-Pro-B Natriuret Pep 84.1 (0-125) PG/ML Total Protein 6.7 6.3 (6.1-8.0) g/dL Albumin 4.3 3.7 (3.5-4.8) g/dL Globulin 2.4 L 2.6 (2.50-4.10) g/dL Albumin/Globulin Ratio 1.70 1.40 (1.3-2.0) mg/g Amylase < 30 L (30-110) U/L Lipase 32 (23-300) IU/L Patient Problems - Patient Problem List (1) GERD (gastroesophageal reflux disease) Status: Acute Comment: Has plans for follow-up EGD and colonoscopy with persistent diarrhea issues. PH monitoring could be considered as well. I have done an H. pylori antibody and it is pending. Qualifiers: Esophagitis presence: esophagitis presence not specified Qualified Description: Gastroesophageal reflux disease, esophagitis presence not specified Qualifier Code(s): (K21.9) Gastro-esophageal reflux disease without esophagitis (2) Chest pain Status: Acute (3) Poorly controlled type 2 diabetes mellitus Status: Chronic (4) Hypertension Status: Chronic Qualifiers: Hypertension type: essential hypertension Qualified Description: Essential hypertension Qualifier Code(s): (I10) Essential (primary) hypertension (5) Obstructive sleep apnea Status: Acute Comment: I sent a prescription for obstructive sleep apnea therapy with CPAP at 11 cm water with oxygen at night. (6) Hypertriglyceridemia Status: Acute
[2016-04-22] MEDS ORDERED: Sodium Chloride 0.9% 1,000 ML ONE (18:15)
[2016-04-22] MEDS ORDERED: Famotidine Inj 20 MG in Normal Saline Flush 10 ML IVP SCH (21:00)
== END 2016-04-22 13:32 | disposition home or self-care (01) ==
LOC: ER 16:56 → MED/SURG 19:39
PROVIDERS: ADMIT Surgery; ATTEND Surgery
DX: K21.9 Gastro-esophageal reflux disease without esophagitis (principal); G89.18 Other acute postprocedural pain; E11.65 Type 2 diabetes mellitus with hyperglycemia; I10 Essential (primary) hypertension; G47.33 Obstructive sleep apnea (adult) (pediatric); E78.1 Pure hyperglyceridemia
CPT/HCPCS: 36415; 71010; 71275; 74177; 80053; 82150; 82553; 83690; 83880; 84484; 85025; 85379; 93005; 93010; 94150; 94761; 96374; 96375; 96376; 99284; J1170; J1885; J2405; J3490; J7030; J7120

== ENCOUNTER → 2016-04-28 | Outpatient (CLI) | payer OTHER | LOC: MMPC 11:11 | PROVIDERS: ATTEND Surgery | DX: K82.8 Other specified diseases of gallbladder (principal) ==

== ENCOUNTER → 2016-05-01 | Outpatient (CLI) | payer OTHER | LOC: MMPC 09:00 | PROVIDERS: ATTEND Student in an Organized Health Care Education/Training Program | DX: M17.11 Unilateral primary osteoarthritis, right knee (principal); I10 Essential (primary) hypertension; E66.01 Morbid (severe) obesity due to excess calories; E78.1 Pure hyperglyceridemia; R59.0 Localized enlarged lymph nodes; E11.42 Type 2 diabetes mellitus with diabetic polyneuropathy; G47.33 Obstructive sleep apnea (adult) (pediatric); F17.200 Nicotine dependence, unspecified, uncomplicated | CPT/HCPCS: 99214; G0463 ==

== ENCOUNTER → 2016-05-13 | Outpatient (CLI) | payer OTHER | LOC: MMPC 10:00 | PROVIDERS: ATTEND Specialist | DX: I25.10 Atherosclerotic heart disease of native coronary artery without angina pectoris (principal); I25.84 Coronary atherosclerosis due to calcified coronary lesion; F17.210 Nicotine dependence, cigarettes, uncomplicated; I27.2 Other secondary pulmonary hypertension; G47.30 Sleep apnea, unspecified; R11.0 Nausea; Z98.890 Other specified postprocedural states | CPT/HCPCS: 99213; G0463 ==

== ENCOUNTER → 2016-06-24 | Outpatient (CLI) | payer OTHER ==
--- NOTE | 2016-06-24 15:29 | DI ---
RIGHT KNEE, 06/24/2016 1:48 PM: Clinical History: Right knee pain. Previous Exam: None at this facility. 4 views are submitted. The AP and tunnel projections are weight bearing views. There is no acute soft tissue, osseous, or joint abnormality. There are severe joint space narrowing of both the medial and lateral compartments with sclerosis of both tibial plateaus. On the standing AP projection, there is a genu varum appearance. There is mild lateral subluxation of the patella with slight narrowing of t he joint space between the lateral facet and the lateral femoral condyle. Reading: Degenerative arthritic changes of all 3 compartments but most severely in the medial and lateral comp artments with a genu varum pattern on the AP projection.
== END ==
LOC: ORTHO 13:51
PROVIDERS: ATTEND Physician Assistant
DX: M25.561 Pain in right knee (principal); M17.11 Unilateral primary osteoarthritis, right knee
CPT/HCPCS: 73564; 99213; G0463

== ENCOUNTER → 2016-06-27 | Outpatient (CLI) | payer OTHER | LOC: MMPC 10:00 | PROVIDERS: ATTEND Orthopaedic Surgery | DX: M17.11 Unilateral primary osteoarthritis, right knee (principal) | CPT/HCPCS: 20610 ×2; 99213; G0463; J0702 ==

== ENCOUNTER → 2016-08-11 | Outpatient (CLI) | payer OTHER | LOC: MOB LAB 10:41 | PROVIDERS: ATTEND Physician Assistant | DX: R30.0 Dysuria (principal); R50.9 Fever, unspecified; R11.0 Nausea; R35.0 Frequency of micturition; R82.99 Other abnormal findings in urine; F17.200 Nicotine dependence, unspecified, uncomplicated | CPT/HCPCS: 81002; 87077; 87088; 87186; 99213 ==

== ENCOUNTER → 2016-08-13 | Outpatient (CLI) | payer OTHER ==
--- NOTE | 2016-08-13 15:26 | EKG ---
[address] [address] Measurements Intervals [place] Rate: 83 P: 41 MS: 159 QRS: 47 QRSD: 85 T: 45 QT: 374 QTc: 414 Interpretive Statements SINUS RHYTHM Compared to ECG 04/21/2016 17:00:40 No significant changes Electronically Signed On 08-13-16 16:05:26 MDT by Alton Gil [email or web address]
--- NOTE | 2016-08-13 15:40 | DI ---
XR CXR 2VW PA/LAT,08/13/2016 3:13 PM: Clinical History: Shortness of breath Previous Exam: April 21, 2016 Findings: PA and lateral views of the chest are obtained, and demonstrate stable granular opacities throughout the lungs with some increased interstitial markings. The cardiomediastinum and bony thorax are unrema rkable. Mild degenerative changes of the thoracic spine are seen. Impression: No acute intrathoracic pathology.
[2016-08-13 15:55] LABS: BASOPHILS # (AUTO) 0.03 10*3/UL; BASOPHILS % (AUTO) 0.2 % (0-1); EOSINOPHILS # (AUTO) 0.86 10*3/UL; EOSINOPHILS % (AUTO) 6.4 % (0-8); HEMATOCRIT 49.2 % (37.0-47.0); HEMOGLOBIN 16.7 g/dL (12.0-16.0); LYMPHOCYTES # (AUTO) 1.63 10*3/uL; MEAN CORPUSCULAR HEMOGLOBIN 30.6 PG (27-31); MEAN CORPUSCULAR HGB CONC 33.9 g/dL (33-37); MEAN CORPUSCULAR VOLUME 90.3 FL (81-99); MEAN PLATELET VOLUME 9.5 FL (7.4-12.2); MONOCYTES # (AUTO) 0.92 10*3/UL (0.3-0.8); MONOCYTES % (AUTO) 6.9 % (5-15); NEUTROPHILS # (AUTO) 9.93 10*3/UL; RED BLOOD COUNT 5.45 10^6/uL (4.20-5.40)
[2016-08-13 15:58] LABS: PLATELET MORPHOLOGY COMMENT NORMAL MORPHOLOGY (NORM); RBC MORPHOLOGY COMMENT NORMAL MORPHOLOGY (NORM); WBC MORPHOLOGY COMMENT NORMAL MORPHOLOGY (NORM)
[2016-08-13 16:08] LABS: BLOOD UREA NITROGEN 15 mg/dL (7-22); BUN/CREATININE RATIO 16.66 (6-20); C-REACTIVE PROTEIN 6.6 mg/dL (0.0-0.9); CALCIUM 9.8 mg/dL (8.7-10.7); EST GLOMERULAR FILTRATION > 60 (>60 ml/min/1.73m(2)); SERUM ALBUMIN 4.2 g/dL (3.5-4.8)
[2016-08-13 16:18] LABS: TROPONIN I < 0.012 ng/mL (< 0.040)
--- NOTE | 2016-08-13 18:04 | DI ---
CT CTA CHEST NONCORONARY W/WO,08/13/2016 5:03 PM: Clinical History: Shortness of breath. Previous Exam: April 21, 2016 Findings: Multiple helically acquired CT images are obtained through the chest following a CT chest angiogram p rotocol. Images are limited due to poor bolus timing. The pulmonary arteries demonstrate normal course, caliber and appearance without evidence of filling defect or truncation to suggest pulmonary embolism. Mild subsegmental atelectasis is seen within the lung bases. The upper abdomen is unremarkable except for diffuse fatty infiltration of the liver. There are multiple coronary artery calcifications seen. Impression: 1. No evidence of pulmonary embolism. 2. Coronary artery disease.
== END ==
LOC: MOB LAB 15:14
PROVIDERS: ATTEND Physician Assistant
DX: R06.02 Shortness of breath (principal); R07.9 Chest pain, unspecified; R05 Cough; R06.2 Wheezing; I10 Essential (primary) hypertension; I25.10 Atherosclerotic heart disease of native coronary artery without angina pectoris; G47.33 Obstructive sleep apnea (adult) (pediatric); F17.200 Nicotine dependence, unspecified, uncomplicated; Z99.81 Dependence on supplemental oxygen
CPT/HCPCS: 36415; 71020; 71275; 80053; 82553; 83880; 84484; 85025; 85379; 86140; 93005; 93010; 94640; 99213; G0463

== ENCOUNTER → 2016-08-27 | Outpatient (CLI) | payer OTHER | LOC: MOB LAB 12:08 | PROVIDERS: ATTEND Physician Assistant | DX: R30.0 Dysuria (principal); R82.99 Other abnormal findings in urine | CPT/HCPCS: 87077; 87088; 87186 ==

== ENCOUNTER → 2016-09-01 | Outpatient (CLI) | payer OTHER | LOC: MMPC 09:00 | PROVIDERS: ATTEND Physician Assistant Medical | DX: G47.33 Obstructive sleep apnea (adult) (pediatric) (principal); Z87.440 Personal history of urinary (tract) infections; E11.42 Type 2 diabetes mellitus with diabetic polyneuropathy | CPT/HCPCS: 99213; G0463 ==

== ENCOUNTER → 2016-09-22 | Outpatient (CLI) | payer OTHER ==
[2016-09-22 14:17] LABS: HEMOGLOBIN A1C 7.21 % (4.2-6.0)
== END ==
LOC: MOB LAB 11:56
PROVIDERS: ATTEND Physician Assistant Medical
DX: E11.42 Type 2 diabetes mellitus with diabetic polyneuropathy (principal); J30.2 Other seasonal allergic rhinitis; R60.0 Localized edema; M25.561 Pain in right knee; Z87.448 Personal history of other diseases of urinary system; Z72.0 Tobacco use
CPT/HCPCS: 36415; 83036; 99214; G0463

== ENCOUNTER → 2016-10-15 | Outpatient (CLI) | payer OTHER ==
--- NOTE | 2016-10-15 10:00 | DI ---
History: Osteoarthritis Comparison: No previous CT scans of the extremity Findings: There is small osteophyte formation around the articular margins of the acetabulum, and femoral head . Femoral head contours is normal. There is no joint effusion. There is no fracture. There are no de structive changes. There is no malalignment. Normal muscle/fat planes are preserved around the hip, without inflammation, or sequestered fluid col lections. Impression Mild degenerative changes.
== END ==
LOC: CT 08:59
PROVIDERS: ATTEND Orthopaedic Surgery
DX: M17.11 Unilateral primary osteoarthritis, right knee (principal)
CPT/HCPCS: 73700

== ENCOUNTER → 2016-10-24 | Outpatient (CLI) | payer OTHER | LOC: MOB LAB 14:31 | PROVIDERS: ATTEND Physician Assistant | DX: R30.0 Dysuria (principal); R82.99 Other abnormal findings in urine | CPT/HCPCS: 87077; 87088; 87186 ==

== ENCOUNTER 2016-11-25 08:00 | Inpatient (IN) ==
[2017-02-03] MEDS ORDERED: BUPivacaine Liposome/PF (Exparel) Inj 20ml vial INFIL ONE ×2 (06:00→07:31)
[2017-02-03] MEDS ORDERED: Lactated Ringers 1,000 ML PRIMARY IV SCH ×2 (06:00→06:45)
[2017-02-03] MEDS ORDERED: ceFAZolin Inj 2gm (Premix) 2 GM/50 ML BAG IV ONE ×2 (06:00→06:01)
[2017-02-03] MEDS ORDERED: Ketorolac Inj 30 MG, Morphine Inj 5 MG, BUPivacaine Inj 0.25% PF 150 MG SPLASH ONE ×3 (06:00)
[2017-02-03] MEDS ORDERED: LIDOCAINE W/ SODIUM BICARB 0.5 ML SYR SUBD ONE (06:00)
[2017-02-03] MEDS ORDERED: Tranexamic Acid 1,000 MG in Sodium Chloride 0.9% 100 ML IV SCH (06:00)
[2017-02-03] MEDS ORDERED: Lactated Ringers 1,000 ML PRIMARY IV ONE ×3 (06:01→11:56)
[2017-02-03] MEDS ORDERED: LIDOCAINE W/ SODIUM BICARB 0.5 ML SYR ONE ×2 (06:01→07:27)
[2017-02-03] MEDS ORDERED: NORMAL SALINE 10 ML SYRINGE FLUSH IVP PRN (06:35)
[2017-02-03] MEDS ORDERED: HYDROmorphone 2 MG/1 ML IVP PRN (06:35)
[2017-02-03] MEDS ORDERED: Ondansetron ODT Tab 8 MG TAB PO PRN (06:35)
[2017-02-03] MEDS ORDERED: ATROPINE SULFATE 0.4 MG/1 ML VIAL IVP PRN (06:35)
[2017-02-03] MEDS ORDERED: ONDANSETRON 4 MG/2 ML VIAL IVP PRN (06:35)
[2017-02-03] MEDS ORDERED: fentaNYL Inj 100 MCG/2 ML VIAL IVP PRN (06:35)
[2017-02-03] MEDS ORDERED: IPRATROPIUM/ALBUTEROL SULFATE 3 ML NEB NEB PRN (06:36)
[2017-02-03] MEDS ORDERED: Sodium Chloride 0.9% 500 ML ONE ×2 (06:41→12:32)
[2017-02-03] MEDS ORDERED: Sodium Chloride 0.9% 1,000 ML ONE (06:41)
[2017-02-03] MEDS ORDERED: MIDAZOLAM 5 MG/1 ML ONE (06:52)
[2017-02-03] MEDS ORDERED: ROPIVACAINE HCL 7.5 MG/1 ML - 20 ML ONE (06:52)
[2017-02-03] MEDS ORDERED: BUPivacaine 0.5%/Epi Inj 50 ML VIAL ONE (06:52)
[2017-02-03] MEDS ORDERED: fentaNYL Inj 250 MCG/5 ML VIAL ONE (06:52)
[2017-02-03] MEDS ORDERED: cloNIDine HCL/PF 100 MCG/ML - 10 ML VIAL ONE (06:53)
[2017-02-03] MEDS ORDERED: IPRATROPIUM/ALBUTEROL SULFATE 3 ML NEB NEB ONE (07:13)
[2017-02-03] MEDS ORDERED: Gentamicin Inj 40 MG/ML VIAL ONE ×2 (07:31→10:51)
[2017-02-03] MEDS ORDERED: Sodium Chloride 0.9% vial 40 ML ONE (07:31)
[2017-02-03] MEDS ORDERED: HEPARIN 10,000 UNIT/1 ML ONE (07:33)
[2017-02-03] MEDS ORDERED: TRANEXAMIC ACID 1,000 MG / 10 ML VIAL ONE (07:41)
[2017-02-03] MEDS ORDERED: Sodium Chloride 0.9% 200 ML IV ONE (07:41)
[2017-02-03] MEDS ORDERED: PROPOFOL 10 MG/1 ML (200 MG/20 ML) VIAL IV ONE (07:51)
[2017-02-03] MEDS ORDERED: KETAMINE 100 MG/1 ML - 5 ML ONE (07:51)
[2017-02-03] MEDS ORDERED: VECURONIUM BROMIDE 10 MG VIAL ONE (07:59)
[2017-02-03] MEDS ORDERED: Sodium Chloride 0.9% vial 10 ML ONE (08:00)
[2017-02-03] MEDS ORDERED: LIDOCAINE MPF 2% - 5 ML (20 MG/1 ML) ONE ×2 (08:00→11:32)
[2017-02-03] MEDS ORDERED: Hetastarch 6% + NS 500 ML IV ONE (08:17)
[2017-02-03] MEDS ORDERED: ePHEDrine Inj 50 MG/ML AMP ONE (09:07)
--- NOTE | 2017-02-03 09:34 | CRNA.PROCE ---
Nerve Block Documentation - - Safety Measures: Time Out Taken, Site Verified - - Type of Nerve Block Used: Right Sciatic Nerve Block Position for Nerve Block: Lateral Moniters Used During Block: EKG, SPO2, NIBP Oxygen Supplemented: Yes Sedation Used - Enter Amount in Comment Field [ANES.SEDAT]: Midazolam (mg): Yes (3.5 mg- ( 2 plus 1.5 )), Fentanyl (mcg): Yes (100) Skin Prep Used: ChloroPrep (Twice) Draped: No Technique: Nerve Stimulator Nerve Block Needle Used: Adzuna 100 mm Stimulation Hz: 1 Stimulation Staring mA: 1.8 Stimulation Ending mA: 0.48 Local Anesthetic - Enter Amt in Comment Field [ANES.LOCNB]: 0.5 % Bupivicaine with Epinephrine 1:200,000 (mL): Yes (12 ml), Other Anesthetic: Yes (0.7% Ropi 12 ml) Additives to Nerve Blocks: Clonidine (mg): Yes (50 mcgs) - - PreOp Block : Time In: 07:23 PreOp Block : Time Out: 07:30 Anesthesia Time - Other Weight: 105.687 kg Height: 5 ft 2 in Body Mass Index (BMI): 42.6
--- NOTE | 2017-02-03 09:37 | CRNA.PROCE ---
Nerve Block Documentation - - Safety Measures: Time Out Taken, Site Verified - - Type of Nerve Block Used: Right Femoral Nerve Block Position for Nerve Block: Supine Moniters Used During Block: EKG, SPO2, NIBP Oxygen Supplemented: Yes Sedation Used - Enter Amount in Comment Field [ANES.SEDAT]: Midazolam (mg): Yes (3.5 total for both blocks), Fentanyl (mcg): Yes (100 mcgs for both blocks) Skin Prep Used: ChloroPrep (Twice) Draped: No Technique: Nerve Stimulator Nerve Block Needle Used: [employer] 50 mm Stimulation Hz: 1 Stimulation Staring mA: 1.8 Stimulation Ending mA: 0.48 Local Anesthetic - Enter Amt in Comment Field [ANES.LOCNB]: 0.5 % Bupivicaine with Epinephrine 1:200,000 (mL): Yes (15 ml), Other Anesthetic: Yes (0.7% ropivicaine 15 ml) Additives to Nerve Blocks: Clonidine (mg): Yes (50 mcgs) - - PreOp Block : Time In: 07:31 PreOp Block : Time Out: 07:40 Anesthesia Time - Block Time PreOp Block : Time In: 07:23 PreOp Block : Time Out: 07:30 - Other Weight: 105.687 kg Height: 5 ft 2 in Body Mass Index (BMI): 42.6
--- NOTE | 2017-02-03 09:40 | CRNA.PROGR ---
Anesthesia Time - - Start date: 02/03/17 End date: 02/03/17 - Procedure/Recovery Time Anesthesia : Time In: 08:05 Anesthesia : Time Out: 11:59 Anesthesia : Total Time: 234 - Block Time PreOp Block : Time In: 07:23 PreOp Block : Time Out: 07:40 PreOp Block : Total Time: 17 - Total Anesthesia Time Total Anesthesia Time (minutes): 251 - Other Weight: 105.687 kg Height: 5 ft 2 in Body Mass Index (BMI): 42.6 Physical Status: P3 (COPD, DM type 2, HTN , Tobacco) Anesthesia Type: General Anesthesia : ET PostOp Pain Management: Sciatic Single Nerve Block (sciatic and femoral pain blocks done)
[2017-02-03] MEDS ORDERED: ONDANSETRON 4 MG/2 ML VIAL ONE (09:48)
[2017-02-03] MEDS ORDERED: Sodium Chloride 0.9% 500 ML PRIMARY IV ONE (12:30)
--- NOTE | 2017-02-03 13:33 | CRNA.PROGR ---
Anesthesia Recovery Phase I - Post Anesthesia Evaluation Patient's Condition on Arrival in Phase I: Stable Patient's Condition on Arrival in Phase II: Stable Pain Level: 1 (required fluid bolus for borderline low blood pressures.)
--- NOTE | 2017-02-03 13:35 | CRNA.PROGR ---
Post Anesthesia Phase II - Post Anesthesia Phase II Patient Stable and Discharged To: Med/Surg Care Assumed By Surgeon: Deshawn Heaton MD Pulse Rate: 76 Respiratory Rate: 18 Pulse Ox: 99 Total Tracey Score at Discharge: 9 Post Anesthesia Discharge Criteria Met: Yes Additional Details: No pain. Blood pressure acceptable. Lost more than average blood for a TKA. Used Clonidine in pain blocks- 50 mcgs per block-total of 100 mcgs. Pt weighs 100 kgs. No Dexmethasone d/t DM.
[2017-02-03] MEDS ORDERED: diphenhydrAMINE 25 MG CAPSULE PO PRN (13:49)
[2017-02-03] MEDS ORDERED: Promethazine Tab 25 MG TAB PO PRN (13:49)
[2017-02-03] MEDS ORDERED: BISACODYL 5 MG TABLET PO PRN (13:49)
[2017-02-03] MEDS ORDERED: BLOOD SUGAR DIAGNOSTIC MC SCH (13:49)
[2017-02-03] MEDS ORDERED: Diphenoxylate/Atropine 2.5/0.025 mg Tab PO PRN (13:49)
[2017-02-03] MEDS ORDERED: ACETAMINOPHEN 325 MG TABLET PO PRN (13:49)
[2017-02-03] MEDS ORDERED: CALCIUM CARBONATE 500 MG (TUMS) CHEWABLE TABLET PO PRN (13:49)
[2017-02-03] MEDS ORDERED: MAG HYDROX/AL HYDROX/SIMETH 30 ML SUSP PO PRN (13:49)
[2017-02-03] MEDS ORDERED: Prochlorperazine Tab 10 MG TAB PO PRN (13:49)
[2017-02-03] MEDS ORDERED: BISACODYL 10 MG SUPPOSITORY RECTAL PRN (13:49)
[2017-02-03] MEDS: Lactated Ringers 1,000 ML PRIMARY IV SCH ×2 (14:28→22:07)
--- NOTE | 2017-02-03 14:34 | ORTHO.PROG ---
Last Taken Vital Signs: Vital Signs - Last Taken Temperature 97.3 F 02/03/17 13:52 Pulse Rate 80 02/03/17 13:52 Respiratory Rate 16 02/03/17 13:52 Blood Pressure 114/61 02/03/17 13:52 Pulse Ox 92 02/03/17 13:52 Subjective: Patient doing well no pain or discomfort. Right dressing clean and dry Objective: Patient with absent sensory sciatic and femoral nerve distribution motor examination is also absent at the current time she has strong pulses and brisk refill. No calf, popliteal adductor hiatus or deep pain block working in in place. Intake and Output - 8hrs 02/02/17 02/03/17 02/03/17 02/03/17 21:59 05:59 13:59 21:59 Intake: IV 2600 / 2600 Intake Oral Amount 0 / 0 Output: Output, Drainage Amount 0 / 0 R knee 0 / 0 Output, Urine Amount 150 / 150 Output, Estimated Blood Loss 700 / 700 Amount Other: Drains Negative Pressure Drain R knee Negative Pressure Drain Weight 105.687 kg Weight Measurement Method Standing Scale Assessment: Right total knee replacement overall doing well Plan: Pain control with IV and oral medication and also with the femoral and sciatic nerve block in place at the current time. No mobilization for 72 hours without knee immobilizer. I discussed this with the patient extensively ,and with nursing found to order in chart. Also discussed with physical therapy to see if we could get this Today so that they could stand her bedside. And as I discussed with the patient strict non- weightbearing DVT prophylaxis with pneumatics and Lovenox beginning tomorrow.
--- NOTE | 2017-02-03 15:03 | ORTHO.OP ---
- - -: See Dictated Operative Report Procedure Codes - Lower Extremity/Knee Procedures Primary Lower Extremity Procedure Code: 30063 : TKA (Avelina LAMBERT assisted)
--- NOTE | 2017-02-03 16:05 | PT.PROG ---
Progress Note Progress Note: Thank you for the referral of Kristi Santillan. She was seen following a TKA on the R. SUBJECTIVE: The patient is a pleasant 61 y/o female who presents with appropriate deficits following a TKA on her R knee. The patient is from [place] and has support from her mother and cousin, who also live in town. The patient lives at home alone in a trailer that has 3 stairs at the entrance with mayela handrails. The bathroom has a standard toilet, walk in shower, and has grab bars for both. Prior to surgery the pt. was independent with all ADL's. The patient states she has elevated arthritis that effects all of her joints. Pt. denies balance issues, but has and knows how to use a walker, from her last TKA. Pt. stated goals are to return to her previous level of activity and to her hobby of gardening. Pt. denies any pain, but also has no feeling from thigh down due to nerve block. OBSERVATION: The patient is alert and oriented to setting upon PT arrival. Pt. is of endomorphic body type and has a small frame. The patient was laying supine in bed. She did agree to participate in therapy. The patient does have a PiCCO line and a Hemovac in place. The patient was able to move from a supine to seated position. The patient was able to perform this with min assist. Once sitting on the edge of bed the patient denied any lightheadedness or dizziness and stated that he felt pretty good. Pt. was unable to move her toes/ankles. After cueing the patient was able to stand with SBA. The pt. then transferred with HAWA from 2 professionals to her bedside chair. ASSESSMENT: The patient has good rehab potential. Problem List: Pain in the R knee Decreased passive and active range of motion R knee Decreased strength of the R knee Short-Term Goals: To be met by discharge from inpatient: Patient will be able to transfer from bed to stand safely and independently. Patient will be able to ambulate at least 150 feet with walker and weight- bearing as tolerated on the right. Patient will be able to ascend and descend at least 5 stairs with front wheeled walker and weight-bearing as tolerated on the right and do so safely. Long-Term Goals: To be met following discharge from inpatient: Patient may be seen by outpatient physical therapy. TREATMENT PLAN: Patient will be seen B.I.D during the week and one time per day over the weekend as an inpatient for transfer training, gait training, and stair training. INITIAL TREATMENT: Treatment today consisted of the initial evaluation followed by one unit of functional activity. Following treatment the patient was left upright in chair with call light within reach and chair alarm set. Respectfully submitted, Agustín Hartman, SPT Clemente Sneed, PT
--- NOTE | 2017-02-03 17:20 | DI ---
XR KNEE 1 OR 2 VWS,02/03/2017 11:45 AM: Clinical History: Total knee arthroplasty. Previous Exam: June 24, 2016 Findings: 3 views of the right knee are obtained, and demonstrate anatomic alignment without fractures. There i s no evidence of hardware loosening. There is a SAMI drain in place. There is some free air noted withi n the suprapatellar space. No fracture is seen. Diffuse edema is also noted. Overlying skin jessica are seen. Impression: Status post right total knee arthroplasty otherwise unremarkable.
--- NOTE | 2017-02-03 17:31 | CONSULT ---
Consult Note - Consult Reason for Consult: PostOp Consulation : Ortho Requesting Physician: Sudarshan Primary Care Provider: Michelet Saucedo MD HPI - History of Present Illness History of Present Illness: This very nice 61-year-old female with past medical history significant for diabetes and hypertension comes in is status post left total knee replacement hospitalist service was consult that for her diabetes and hypertension patient has no complaints at present time Past Medical History Medical History: 1. Hypertension. 2. Diabetes. 3. Gout. 4. Peripheral neuropathy. 5. Probable GERD. 6. Obstructive sleep apnea, on oxygen therapy at night. CPAP therapy to be initiated post hospital stay. Surgical History: 1. Status post cholecystectomy today. 2. Hysterectomy. 3. Arthroscopic knee surgeries. 4. Tonsillectomy. 5. Appendectomy. 6. Unilateral oophorectomy. 7. Achilles tendon repair Pertinent Family History: Father had myocardial infarction Past Social History: Smokes. Does not drink alcohol. Tobacco Use: Current Every Day Smoker In the Past 12 Months, Have Used or Abuse Any of the Following Substance: None Review of Systems - Review of Systems All Systems: Reviewed & No Additional Complaints Except as Stated - Cardiovascular Cardiovascular: DENIES: Negative System Review, Chest Pain, Edema, Syncope, Palpitations, Orthopnea, Paroxysmal Nocturnal Dyspnea, Other, See HPI - Gastrointestinal Gastrointestinal / Abdominal: DENIES: Negative System Review, Nausea, Vomiting, Diarrhea, Constipation, Abdominal Pain, Bloody Stool, Poor Appetite, Heartburn, Regurgitation, Bloating, Lactose Intolerance, Melena, Bright Red Blood per Rectum, Other, See HPI - Neurological Neurologic: DENIES: Negative System Review, Headache, Numbness/Paresthesia, Tremors, Weakness, Seizures, Head Trauma, LOC, Dizziness, Confusion, Memory Loss , Difficulty Walking, Incoordination, Other, See HPI Medication / Allergies Home Medications: Home Medications Medication Instructions Recorded Confirmed Type Potassium Chloride [Klor-Con] 1 tab PO DAILY 11/20/14 02/03/17 History Oxybutynin Chloride [Oxybutynin 10 mg PO DAILY 03/31/16 02/03/17 History Chloride ER] Diclofenac Sodium [Voltaren] 4 gm TOPICAL QID #3 tube 06/24/16 02/03/17 Rx Blood Sugar Diagnostic [Accu-Chek 1 ea MC QD #1 bottle 10/06/16 02/03/17 Rx Olamide Plus] Multivitamin [Multi-Vitamin Daily] 1 ea PO QD tab 10/06/16 02/03/17 History Oxygen (O2) 1 unit unit 10/06/16 01/19/17 History Allopurinol 1 tab PO DAILY #90 tab 10/09/16 02/03/17 Rx Diphenoxylate HCl/Atropine 5 mg PO BID PRN #60 tab 10/09/16 02/03/17 History [Lomotil 2.5-0.025 Mg Tablet] Gabapentin 1 cap PO DAILY #30 cap 10/13/16 02/03/17 Rx Saxagliptin HCl [Onglyza] 5 mg PO DAILY #30 tab 10/13/16 02/03/17 Rx Escitalopram Oxalate [Lexapro] 1 tab PO DAILY #30 tab 10/30/16 02/03/17 Clinic Hydroxyzine HCl 25 mg PO TID PRN #30 tab 10/30/16 02/03/17 Clinic insulin glargine 100 unit/mL (3 5 unit SUBCUT QHS #3 ml 11/25/16 02/03/17 Rx mL) subcutaneous pen promethazine 25 mg tablet 25 mg PO Q6H PRN #30 tab 11/26/16 02/03/17 Rx pen needle, diabetic 31 gauge x See Dose Instructions .ROUTE 11/28/16 01/19/17 Rx 05/15" .MEDSUPPLY #150 ea mesalamine ER 0.375 gram 1.5 g PO QAM 01/02/17 02/03/17 History capsule,extended release 24 hr pantoprazole 40 mg tablet,delayed 40 mg PO BID tab 01/02/17 02/03/17 History release zolpidem 10 mg tablet 10 mg PO QHS #30 tab 01/09/17 02/03/17 Rx celecoxib 200 mg capsule 1 cap PO DAILY #30 cap 01/20/17 02/03/17 Clinic lisinopril 20 1 tab PO QDAY #30 tab 01/20/17 02/03/17 Rx mg-hydrochlorothiazide 12.5 mg tablet Allergies/Adverse Reactions: Allergies 3 Allergy/AdvReac Type Severity Reaction Status Date / Time nitrofurantoin Allergy Severe SOB Verified 02/03/17 14:43 Exam - Vitals Vital Signs: Vital Signs Temperature 97.7 F Temperature Source Temporal Artery Scan Pulse Rate [Telemetry] 78 Pulse Rate 76 Respiratory Rate 18 Blood Pressure [L arm] 96/57 Pulse Ox 92 Oxygen Flow Rate 5 Oxygen Delivery Method Nasal Cannula Height 5 ft 2 in Weight 233 lb - General General Appearance: Cooperative - Eye Eye Exam: POSITIVE: Normal Appearance, PERRL, EOMI, No Scleral Icterus - Neck Neck Exam: Normal Inspection, Full ROM, No Tenderness, No Lymphadenopathy, No Thyromegaly, JVP is not Raised - Respiratory Respiratory Exam: POSITIVE: Clear to Auscultation - Bilaterally, Breathing Non Labored, Normal To Percussion, Normal to Percussion and Palpation - Cardiovascular Cardiovascular Exam: POSITIVE: RRR, No Murmur, No Clicks, No Gallops, No Rubs, PMI Non-Displaced - GI/Abdominal GI/Abdominal Exam: POSITIVE: Normal Bowel Sounds, Non Tender, Non Distended, Soft, No Masses, No Hepatomegaly, No Splenomegaly, No Organomegaly - Rectal Rectal Exam: POSITIVE: Deferred - External Exam: POSITIVE: Deferred Exam: POSITIVE: Deferred - Extremities Extremities Exam: POSITIVE: Normal Inspection, Full ROM, Normal Capillary Refill , No Clubbing Present, No Edema Present, No Cyanosis Present, Negative Roque's sign, Dosalis Pedis Pulses - Stong & Regular - Neurological Neurological Exam: POSITIVE: Alert, Oriented x 3, Reflexes Normal, Normal Gait, CN II-XII Intact, No Facial Droop, Speech Intact / Clear, Moves All Extremities Equally, No Fasciculations, No Clonus - Psychiatric Psychiatric Exam: POSITIVE: Normal Affect, Normal Mood Assessment and Plan - Patient Problems (1) Status post total knee replacement, left Current Visit: No Status: Acute Onset Date: 12/21/14 Comment: Defer to orthopedic surgery Code(s): Z96.652 - Presence of left artificial knee joint (2) Diabetes mellitus, type 2 Current Visit: No Status: Chronic Comment: Check sugars before meals and at bedtime check a hemoglobin A1c (3) Essential hypertension Current Visit: No Status: Chronic Onset Date: 04/10/16 Comment: Stable at present time follow to see if there is any changes that need to be made Code(s): I10 - Essential (primary) hypertension
[2017-02-03] MEDS: ceFAZolin Inj 2gm (Premix) 2 GM/50 ML BAG IV SCH ×2 (18:15→23:32)
[2017-02-03] MEDS: ZOLPIDEM 10 MG TABLET PO SCH (20:47)
[2017-02-03] MEDS: Insulin Glargine SoloStar Inj 100 UNIT/ML INSULN.PEN SUBCUT SCH (20:47)
[2017-02-03] MEDS: PANTOPRAZOLE 40 MG TABLET PO SCH (20:47)
[2017-02-03] MEDS: DOCUSATE 100 MG CAPSULE PO SCH (22:09)
[2017-02-03] MEDS: Ondansetron ODT Tab 8 MG TAB PO PRN (23:25)
[2017-02-03] MEDS: HYDROcodone-APAP 7.5 MG-325 MG TABLET PO PRN (23:29)
[2017-02-04] MEDS: HYDROcodone-APAP 7.5 MG-325 MG TABLET PO PRN ×6 (03:34→22:30)
[2017-02-04] MEDS: Lactated Ringers 1,000 ML PRIMARY IV SCH ×3 (06:41→23:58)
[2017-02-04 06:50] LABS: Hematocrit [HCT] 48.5 % (37.0-47.0); Hemoglobin [HGB] 16.2 g/dL (12.0-16.0); MEAN CORPUSCULAR HEMOGLOBIN 30.6 PG (27-31); MEAN CORPUSCULAR HGB CONC 33.4 g/dL (33-37); MEAN CORPUSCULAR VOLUME 92 FL (81-99); MEAN PLATELET VOLUME 6.7 FL (7.4-12.2); RED BLOOD COUNT 5.29 10^6/uL (4.20-5.40)
[2017-02-04] MEDS: ALLOPURINOL 100 MG TABLET PO SCH (08:25)
[2017-02-04] MEDS: ENOXAPARIN SODIUM 30 MG/0.3 ML SYRINGE SUBCUT SCH ×2 (08:25→21:04)
[2017-02-04] MEDS: HYDROCHLOROTHIAZIDE 12.5 MG CAPSULE PO SCH (08:26)
[2017-02-04] MEDS: PANTOPRAZOLE 40 MG TABLET PO SCH ×2 (08:26→21:05)
[2017-02-04] MEDS: ESCITALOPRAM 10 MG TABLET PO SCH (08:26)
[2017-02-04] MEDS: LISINOPRIL 20 MG TABLET PO SCH (08:26)
[2017-02-04] MEDS: Potassium Chloride Tab 10 MEQ TAB PO SCH (08:26)
[2017-02-04] MEDS: Multivitamin Tab 1 TAB PO SCH (08:26)
[2017-02-04] MEDS: GABAPENTIN 300 MG CAPSULE PO SCH (08:27)
[2017-02-04] MEDS: OXYBUTYNIN CHLORIDE 10 MG PO SCH (08:27)
[2017-02-04] MEDS: MESALAMINE 0.375 GM PO SCH (08:28)
[2017-02-04] MEDS: SAXAGLIPTIN HCL 5 MG PO SCH (08:28)
[2017-02-04] MEDS: DOCUSATE 100 MG CAPSULE PO SCH ×2 (08:29→21:05)
[2017-02-04] MEDS: MORPHINE SULFATE 2 MG/1 ML IVP PRN ×5 (09:26→21:01)
--- NOTE | 2017-02-04 12:04 | PDOC(PROG) ---
Interval History: Patient is doing much better today regards to her oxygenation she did not want any tests or anything done yesterday. Objective : Data - Labs CBC and BMP: 02/04/17 06:19 02/04/17 06:19 Objective : Exam - Respiratory Respiratory Exam: Clear to Auscultation - Bilaterally, Breathing Non Labored, Normal To Percussion, Normal to Percussion and Palpation - Cardiovascular Cardiovascular Exam: RRR, No Murmur, No Clicks, No Gallops, No Rubs, PMI Non- Displaced - GI/Abdominal GI/Abdominal Exam: Normal Bowel Sounds, Non Tender, Non Distended, Soft, No Masses, No Hepatomegaly, No Splenomegaly, No Organomegaly - Extremities Extremities Exam: No Clubbing Present, No Edema Present Assessment and Plan - Patient Problems (1) Status post total knee replacement, left Current Visit: No Status: Acute Onset Date: 12/21/14 Comment: Deferred to Dr. Heaton for PT OT anticoagulation Code(s): Z96.652 - Presence of left artificial knee joint (2) Diabetes mellitus, type 2 Current Visit: No Status: Chronic Comment: Continue current meds patient does not want anything changed it done (3) Essential hypertension Current Visit: No Status: Chronic Onset Date: 04/10/16 Comment: Stable patient does not want anything changed it done Code(s): I10 - Essential (primary) hypertension (4) Hypoxia Current Visit: Yes Status: Acute Comment: She was to be improved today patient does not want any CT scans or chest x-rays she says she is a heavy smoker and this will clear on its own respect the patient's wishes Code(s): R09.02 - Hypoxemia
--- NOTE | 2017-02-04 14:32 | CRNA.PROGR ---
Anesthesia Note - Progress Notes Anesthesia Progress Note: Lying in bed, awakened for post op visit. Big complaint is pain posterior knee. Front okay, rear not so good. No nausea. Denies headache. Doesn't know what blood sugar has been. Has stood, but not much as far as ambulation. Laboratory Results 02/04/17 02/04/17 Range/Units 06:19 06:19 WBC 7.8 (4.8-10.8) 10^3/uL RBC 5.29 (4.20-5.40) 10^6/uL Hgb 16.2 H (12.0-16.0) g/dL Hct 48.5 H (37.0-47.0) % MCV 92 (81-99) FL MCH 30.6 (27-31) PG MCHC 33.4 (33-37) g/dL RDW Coeff of Madan 14.3 (11.5-14.5) % Plt Count 213 (140-350) 10*3/uL MPV 6.7 L (7.4-12.2) FL Sodium 136 (135-145) meq/L Potassium 4.5 (3.8-5.2) meq/L Chloride 106 (98-112) meq/L Carbon Dioxide 23 (23-33) meq/L Anion Gap 7 (5-20) BUN 18 (7-22) mg/dL Creatinine 1.0 (0.50-1.20) mg/dL Estimated GFR 56 (>60 ml/min/1.73m(2)) BUN/Creatinine Ratio 18.00 (6-20) Glucose 109 (78-110) mg/dL Calculated Osmolality 284.0 (267-292) mOsm/kg Calcium 8.3 L (8.7-10.7) mg/dL Intake and Output (24hr x 4 totals) 02/02/17 02/03/17 02/04/17 02/05/17 05:59 05:59 05:59 05:59 Intake Total 3800 / 3800 2039 / 2039 Output Total 2049 / 2049 850 / 850 Balance 1750 / 1750 1190 / 1190 Vital Signs - Last Taken Temperature 97.9 F 02/04/17 11:24 Pulse Rate 78 02/04/17 11:24 Respiratory Rate 20 02/04/17 11:24 Blood Pressure 114/69 02/04/17 11:24 Pulse Ox 91 02/04/17 11:24 No apparent anesthetic difficulties.
--- NOTE | 2017-02-04 16:09 | PT.PROG ---
Progress Note Progress Note: S. Patient stated that she is starting to have feeling return to her leg this morning. O. Patient transferred from supine to sit then stood at the edge of bed x 2 minutes then ambulated 5 feet to the chair where she was left with alarm and call light. A. Patient tolerated therapy fair, she would continue to benefit from skilled therapy at this time. P. continue POC.
--- NOTE | 2017-02-04 16:23 | PT.PROG ---
Progress Note Progress Note: S. Patient stated that she is sore this afternoon. O. Patient transferred from supine to standing then ambulated 15 feet to the wheelchair and was wheeled to the therapy gym where she had heat and performed exercises in the form of; heel slides, quad sets, ankle pumps, short arc quads all x 10, seated knee flexion x 3 minutes, Patient ambulated 30 feet then used the nu-step x 5 minutes. Patient was returned to her room where she was left in bed with alarm and call light. A. Patient tolerated therapy fair, she was struggling with pain this afternoon however was able to perform exercises and ambulate very well. Patient would continue to benefit from skilled therapy at this time. P. Continue POC.
[2017-02-04] MEDS: Insulin Glargine SoloStar Inj 100 UNIT/ML INSULN.PEN SUBCUT SCH (21:04)
[2017-02-04] MEDS: ZOLPIDEM 10 MG TABLET PO SCH (21:05)
[2017-02-05] MEDS: MORPHINE SULFATE 2 MG/1 ML IVP PRN ×3 (01:39→17:57)
[2017-02-05] MEDS: HYDROcodone-APAP 7.5 MG-325 MG TABLET PO PRN ×5 (04:22→20:38)
[2017-02-05] MEDS: MESALAMINE 0.375 GM PO SCH (05:55)
[2017-02-05] MEDS: DOCUSATE 100 MG CAPSULE PO SCH ×4 (06:12→22:01)
[2017-02-05 06:59] LABS: BLOOD UREA NITROGEN 13 mg/dL (7-22); BUN/CREATININE RATIO 16.25 (6-20)
[2017-02-05 07:10] LABS: Hematocrit [HCT] 35.1 % (37.0-47.0); Hemoglobin [HGB] 11.5 g/dL (12.0-16.0); MEAN CORPUSCULAR HEMOGLOBIN 30.1 PG (27-31); MEAN CORPUSCULAR HGB CONC 32.9 g/dL (33-37); MEAN CORPUSCULAR VOLUME 91 FL (81-99); RED BLOOD COUNT 3.84 10^6/uL (4.20-5.40)
[2017-02-05 07:11] LABS: MEAN PLATELET VOLUME 6.5 FL (7.4-12.2)
--- NOTE | 2017-02-05 07:56 | ORTHO.PROG ---
Last Taken Vital Signs: Vital Signs - Last Taken Temperature 97.7 F 02/05/17 07:16 Pulse Rate 84 02/05/17 07:16 Respiratory Rate 18 02/05/17 07:16 Blood Pressure 132/66 02/05/17 07:16 Pulse Ox 93 02/05/17 07:16 Subjective: Patient notes that pain was well-controlled on the morning by the afternoon it started to become more significant as a block was wearing off. Objective: Motor and sensory exam was intact dressing was in place with no evidence of active issues good pulses brisk refill. Radiographs from yesterday show that the prostheses is in good position with good bone cement cement prosthesis interface good articulation good alignment Assessment: Right total knee replacement doing well Plan: Patient will work with physical therapy and occupational therapy. She did not go to therapy in the morning but did in the afternoon and struggled with mobilization he does a lot of the cyst because of the block in knee immobilizer and body habitus. She will also continue with DVT prophylaxis and pain control.
--- NOTE | 2017-02-05 07:59 | ORTHO.PROG ---
Last Taken Vital Signs: Vital Signs - Last Taken Temperature 97.7 F 02/05/17 07:16 Pulse Rate 84 02/05/17 07:16 Respiratory Rate 18 02/05/17 07:16 Blood Pressure 132/66 02/05/17 07:16 Pulse Ox 93 02/05/17 07:16 Subjective: Patient notes increasing pain this morning as a block and the clock tail and Experol have started to wear off Objective: Addressing is in place leg is clean and dry good pulses, popliteal adductor hiatus or thigh pain. Cannot do a straight leg raise knee immobilizer in place underneath the leg open icing Laboratory Results 02/05/17 02/05/17 Range/Units 06:39 06:39 WBC 13.4 H (4.8-10.8) 10^3/uL RBC 3.84 L (4.20-5.40) 10^6/uL Hgb 11.5 L (12.0-16.0) g/dL Hct 35.1 L (37.0-47.0) % MCV 91 (81-99) FL MCH 30.1 (27-31) PG MCHC 32.9 L (33-37) g/dL RDW Coeff of Madan 14.2 (11.5-14.5) % Plt Count 323 (140-350) 10*3/uL MPV 6.5 L (7.4-12.2) FL Sodium 136 (135-145) meq/L Potassium 4.8 (3.8-5.2) meq/L Chloride 105 (98-112) meq/L Carbon Dioxide 25 (23-33) meq/L Anion Gap 6 (5-20) BUN 13 (7-22) mg/dL Creatinine 0.8 (0.50-1.20) mg/dL Estimated GFR > 60 (>60 ml/min/1.73m(2)) BUN/Creatinine Ratio 16.25 (6-20) Glucose 154 H (78-110) mg/dL Calculated Osmolality 284.0 (267-292) mOsm/kg Calcium 8.8 (8.7-10.7) mg/dL Intake and Output - 8hrs 02/04/17 02/04/17 02/05/17 02/05/17 13:59 21:59 05:59 13:59 Intake: IV 1800 / 1800 1180 / 1180 1313 / 1313 Intake Oral Amount 360 / 360 960 / 960 400 / 400 Dinner 360 / 360 Lunch 120 / 120 Output: Output, Urinary Catheter Amount 850 / 850 950 / 950 Output, Urine Amount 150 / 150 550 / 550 150 / 150 Other: Percent Meal Consumed Breakfast 100% Dinner 50% Lunch 75% Weight 113.217 kg 113.58 kg Weight Measurement Method Standing Scale Standing Scale Assessment: Right total knee replacement Plan: Continue to mobilize with physical therapy occupational therapy Pain control DVT prophylaxis with pneumatic Lai sequentials.
[2017-02-05] MEDS: Lactated Ringers 1,000 ML PRIMARY IV SCH ×2 (08:04→17:21)
[2017-02-05] MEDS: ONDANSETRON 4 MG/2 ML VIAL IVP PRN ×2 (08:15→17:57)
[2017-02-05] MEDS: NORMAL SALINE 10 ML SYRINGE FLUSH IVP PRN ×3 (08:16→17:59)
[2017-02-05] MEDS: Potassium Chloride Tab 10 MEQ TAB PO SCH (08:21)
[2017-02-05] MEDS: ENOXAPARIN SODIUM 30 MG/0.3 ML SYRINGE SUBCUT SCH ×2 (08:21→20:47)
[2017-02-05] MEDS: ESCITALOPRAM 10 MG TABLET PO SCH (08:22)
[2017-02-05] MEDS: PANTOPRAZOLE 40 MG TABLET PO SCH ×2 (08:22→20:40)
[2017-02-05] MEDS: LISINOPRIL 20 MG TABLET PO SCH (08:22)
[2017-02-05] MEDS: GABAPENTIN 300 MG CAPSULE PO SCH (08:23)
[2017-02-05] MEDS: Multivitamin Tab 1 TAB PO SCH (08:23)
[2017-02-05] MEDS: HYDROCHLOROTHIAZIDE 12.5 MG CAPSULE PO SCH (08:23)
[2017-02-05] MEDS: OXYBUTYNIN CHLORIDE 10 MG PO SCH (09:21)
[2017-02-05] MEDS: ALLOPURINOL 100 MG TABLET PO SCH (09:21)
[2017-02-05] MEDS: SAXAGLIPTIN HCL 5 MG PO SCH (09:22)
--- NOTE | 2017-02-05 11:03 | PT.PROG ---
Progress Note Progress Note: S. Patient stated that she is having a lot of pain this morning. O. Patient ambulated 15 feet to the wheelchair and was wheeled to the therapy gym where she had heat to her back and knee. then performed supine exercises in the form of; heel slides, quad sets, ankle pumps, short arc quads, all x 10 seated knee flexion x 2 minutes, and sit to stands x 5. Patient was left with OT for further therapy. A. Patient tolerated therapy poor today, she was struggling with pain and unable to perform many exercises. Patient would continue to benefit from skilled therapy at this time. P. Continue POC.
--- NOTE | 2017-02-05 16:33 | PT.PROG ---
Progress Note Progress Note: S: Pt states that she is doing much better this afternoon as compared to this morning. Pt was just finishing up with toileting activity prior to PT arrival. O: Tx consisted of: amb x 50 ft with FWW and CGA x 1 for safety with knee immobilizer in place. Pt was wheeled the rest of the way down to therapy. Pt transferred from w/c to nustep with assist x 1. Nustep x 5 minutes. Transfer from nustep with mat table with CGA x 1 and FWW. Instructed in 10 x sit to stand transfers. Pt transferred from seated to supine with SBA x 1 for safety. Pt instructed in 10 x - quad sets, heel slides, SLR with assistance, SAQ. Pt received manual rx for seated knee flexion and extension. Pt ambulated x 50 ft at end of tx and brought back up to her room. A: Danuta participated better in this afternoon PT session. Pt struggles with lifting her l/e up from a seated position. Still utilizing knee immobilizer with ambulation. P: Continue per POC.
[2017-02-05] MEDS: ZOLPIDEM 10 MG TABLET PO SCH (20:39)
[2017-02-05] MEDS: CELECOXIB 200 MG CAPSULE PO SCH (21:00)
[2017-02-05] MEDS: Insulin Glargine SoloStar Inj 100 UNIT/ML INSULN.PEN SUBCUT SCH (21:00)
--- NOTE | 2017-02-05 23:19 | PDOC(PROG) ---
Date and Time of Service: 02/05/2017, 1830 Interval History: no chest pain, SOB, nausea or vomiting. Pain is controlled, but had rough time with therapy today. STates she is also getting some right buttocks pain, sharp in nature. She states she has done well with celebrex in the past. Objective : Data - Labs CBC and BMP: 02/05/17 06:39 02/05/17 06:39 Additional Lab Results: Selected Entries 02/05/17 11:25 02/05/17 16:12 02/05/17 21:00 Finger Stick Blood Glucose 124 H 172 H 153 H 02/05/17 06:39 Glucose 154 H Objective : Exam - General General Appearance: No Acute Distress, Cooperative - Eye Eye Exam: No Scleral Icterus - Respiratory Respiratory Exam: Clear to Auscultation - Bilaterally, Breathing Non Labored - Cardiovascular Cardiovascular Exam: RRR, No Murmur, No Clicks, No Gallops, No Rubs, No JVD - GI/Abdominal GI/Abdominal Exam: Normal Bowel Sounds, Non Tender, Non Distended, Soft - Extremities Extremities Exam: No Clubbing Present, No Edema Present, No Cyanosis Present Additional Extremities Exam Details: knee immobilizer on right side. some mild edema. 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-way use Qualified Code(s): E11.9 - Type 2 diabetes mellitus without complications; Z79.4 - long term (current) use of insulin; Z79.4 - senior living (current) use of insulin; Z79.4 - long term ( current) use of insulin; Z79.4 - senior living (current) use of insulin (2) Essential hypertension Current Visit: Yes Status: Chronic Onset Date: 04/10/16 Code(s): I10 - Essential (primary) hypertension (3) Status post total knee replacement, left Current Visit: Yes Status: Acute Onset Date: 12/21/14 Code(s): Z96.652 - Presence of left artificial knee joint (4) Hypoxia Current Visit: Yes Status: Resolved Code(s): R09.02 - Hypoxemia - Assessment / Plan Additional Assessment/Plan Details: blood sugars reviewed, look good, no changes for now for DMII no change to anti-HTN medications. may need swing bed? will see over the next day or so.
[2017-02-06] MEDS: MORPHINE SULFATE 2 MG/1 ML IVP PRN
[2017-02-06] MEDS: HYDROcodone-APAP 7.5 MG-325 MG TABLET PO PRN ×6 (00:15→20:02)
[2017-02-06 06:43] LABS: BLOOD UREA NITROGEN 16 mg/dL (7-22); BUN/CREATININE RATIO 17.77 (6-20)
[2017-02-06 06:54] LABS: Hematocrit [HCT] 33.6 % (37.0-47.0); Hemoglobin [HGB] 11.2 g/dL (12.0-16.0); MEAN CORPUSCULAR HEMOGLOBIN 30.5 PG (27-31); MEAN CORPUSCULAR HGB CONC 33.5 g/dL (33-37); MEAN CORPUSCULAR VOLUME 91 FL (81-99); RED BLOOD COUNT 3.69 10^6/uL (4.20-5.40)
[2017-02-06 06:55] LABS: MEAN PLATELET VOLUME 6.9 FL (7.4-12.2)
[2017-02-06] MEDS: MESALAMINE 0.375 GM PO SCH (08:15)
[2017-02-06] MEDS: ENOXAPARIN SODIUM 30 MG/0.3 ML SYRINGE SUBCUT SCH ×2 (08:42→20:00)
[2017-02-06] MEDS: HYDROCHLOROTHIAZIDE 12.5 MG CAPSULE PO SCH (08:43)
[2017-02-06] MEDS: GABAPENTIN 300 MG CAPSULE PO SCH (08:43)
[2017-02-06] MEDS: Multivitamin Tab 1 TAB PO SCH (08:43)
[2017-02-06] MEDS: PANTOPRAZOLE 40 MG TABLET PO SCH ×2 (08:43→20:00)
[2017-02-06] MEDS: LISINOPRIL 20 MG TABLET PO SCH (08:43)
[2017-02-06] MEDS: ALLOPURINOL 100 MG TABLET PO SCH (08:43)
[2017-02-06] MEDS: CELECOXIB 200 MG CAPSULE PO SCH ×2 (08:43→20:00)
[2017-02-06] MEDS: ESCITALOPRAM 10 MG TABLET PO SCH (08:44)
[2017-02-06] MEDS: Potassium Chloride Tab 10 MEQ TAB PO SCH (08:44)
[2017-02-06] MEDS: SAXAGLIPTIN HCL 5 MG PO SCH (08:44)
[2017-02-06] MEDS: OXYBUTYNIN CHLORIDE 10 MG PO SCH (08:45)
--- NOTE | 2017-02-06 08:51 | ORTHO.PROG ---
Last Taken Vital Signs: Vital Signs - Last Taken Temperature 97.6 F 02/06/17 06:56 Pulse Rate 90 02/06/17 07:00 Respiratory Rate 22 02/06/17 07:00 Blood Pressure 128/67 02/06/17 06:56 Pulse Ox 90 02/06/17 06:56 Subjective: Patient notes unable to do straight leg raise is 3 days out from surgery, pain same as yesterday better controlled with oral meds Objective: Examination shows that the dressing is clean and dry her motor and sensory exam in the lower extremity foot and ankle is good she has good pulses brisk refill. No calf, popliteal adductor hiatus or thigh pain. Laboratory Results 02/06/17 02/06/17 Range/Units 06:01 06:01 WBC 10.7 (4.8-10.8) 10^3/uL RBC 3.69 L (4.20-5.40) 10^6/uL Hgb 11.2 L (12.0-16.0) g/dL Hct 33.6 L (37.0-47.0) % MCV 91 (81-99) FL MCH 30.5 (27-31) PG MCHC 33.5 (33-37) g/dL RDW Coeff of Madan 14.2 (11.5-14.5) % Plt Count 332 (140-350) 10*3/uL MPV 6.9 L (7.4-12.2) FL Sodium 138 (135-145) meq/L Potassium 4.6 (3.8-5.2) meq/L Chloride 104 (98-112) meq/L Carbon Dioxide 25 (23-33) meq/L Anion Gap 9 (5-20) BUN 16 (7-22) mg/dL Creatinine 0.9 (0.50-1.20) mg/dL Estimated GFR > 60 (>60 ml/min/1.73m(2)) BUN/Creatinine Ratio 17.77 (6-20) Glucose 127 H (78-110) mg/dL Calculated Osmolality 288.0 (267-292) mOsm/kg Calcium 9.3 (8.7-10.7) mg/dL Vital Signs (24 hrs) Temp Pulse Pulse Resp BP BP Pulse Ox 02/06/17 07:00 90 22 02/06/17 06:56 97.6 F 78 18 128/67 90 02/06/17 06:45 92 02/06/17 05:06 91 02/06/17 04:09 97.8 F 85 24 139/73 91 02/06/17 00:05 97.4 F 84 16 144/81 92 02/05/17 20:48 97.0 F 86 20 127/70 91 02/05/17 20:30 88 02/05/17 16:12 97.8 F 75 18 126/68 95 02/05/17 11:23 98.2 F 76 18 117/82 94 Assessment: Right total knee replacement Plan: Continue with current plan with deep vein thromboses protocol and medications and pneumatic sequential devices. Continue with physical therapy and occupational therapy. Pain control with oral medications. Patient would like to try to go home possibly tomorrow and we'll see how she does with therapy and getting clear.
[2017-02-06] MEDS: NICOTINE 21 MG /DAY PATCH TRANSDERM SCH (12:17)
--- NOTE | 2017-02-06 14:58 | PT AM DAY ---
Diagnosis : Right Total Knee Arthroplasty AM - Physical Therapy S: The patient is complaining of a lot of swelling and pain today. O: The patient received an application of moist heat pack x20 minutes including set up to the right knee. She performed open and closed chain exercises. The patient demonstrated -2 degrees of extension to 88 degrees of flexion. The patient was able to transfer and ambulate up to 40 feet x2. A: The therapist thinks the patient is doing well at this stage of the game. P: Continue seeing patient BID during the week and one time per day over the weekend for transfers, ambulation, and range of motion/strengthening exercises. MTDD
--- NOTE | 2017-02-06 15:41 | OT.PROG ---
Progress Note Progress Note: S: pt reports having a shower with assistance from nursing. She reported already feeling tired. O: pt completed ADL dressing already from nursing. She did complete transfer to bathroom with CGA a demonstrated ability to complete toileting Ind with assistance transferring from toilet. Pt transferred downstairs for PT. A: pt may continue to benefit from therapy to increase overall function and activity tolerance. P: continue per POC.
--- NOTE | 2017-02-06 19:52 | PDOC(PROG) ---
Date and Time of Service: 02/06/2017, 1949 Interval History: seen earlier today, no complaints of CP, SOB, N/V Objective : Data - Labs CBC and BMP: 02/06/17 06:01 02/06/17 06:01 Additional Lab Results: Selected Entries 02/05/17 21:00 02/06/17 07:37 02/06/17 12:00 Finger Stick Blood Glucose 153 H 121 H 90 02/06/17 16:29 Finger Stick Blood Glucose 114 H Objective : Exam - General General Appearance: No Acute Distress, Cooperative Additional General Exam Details: Vital Signs (24 hrs) Temp Pulse Pulse Resp BP Pulse Ox 02/06/17 19:00 90 77 20 02/06/17 16:27 97.7 F 77 20 120/78 91 02/06/17 11:15 97.4 F 74 18 118/89 92 02/06/17 07:00 90 22 02/06/17 06:56 97.6 F 78 18 128/67 90 02/06/17 06:45 92 02/06/17 05:06 91 02/06/17 04:09 97.8 F 85 24 139/73 91 02/06/17 00:05 97.4 F 84 16 144/81 92 02/05/17 20:48 97.0 F 86 20 127/70 91 02/05/17 20:30 88 - Eye Eye Exam: No Scleral Icterus - ENT ENT Exam: Mucous Membranes Moist - Respiratory Respiratory Exam: Clear to Auscultation - Bilaterally, Breathing Non Labored - Cardiovascular Cardiovascular Exam: RRR, No Murmur, No Clicks, No Gallops, No Rubs, No JVD - GI/Abdominal GI/Abdominal Exam: Normal Bowel Sounds, Non Tender, Non Distended, Soft - Extremities Extremities Exam: No Clubbing Present, No Cyanosis Present Additional Extremities Exam Details: trace edema right leg expected post TKA - Neurological Neurological Exam: Alert, Oriented x 3, No Facial Droop, Speech Intact / Clear Assessment and Plan - Patient Problems (1) Diabetes mellitus, type 2 Current Visit: Yes Status: Chronic Qualifiers: Diabetes mellitus complication status: without complication Diabetes mellitus correction insulin use: with correction use Qualified Code(s): E11.9 - Type 2 diabetes mellitus without complications; 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; 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; Z79.4 - 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 ( current) use of 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; 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 (2) Essential hypertension Current Visit: Yes Status: Chronic Onset Date: 04/10/16 Code(s): I10 - Essential (primary) hypertension (3) Status post total knee replacement, left Current Visit: Yes Status: Acute Onset Date: 12/21/14 Code(s): Z96.652 - Presence of left artificial knee joint (4) Hypoxia Current Visit: Yes Status: Resolved Code(s): R09.02 - Hypoxemia - Assessment / Plan Additional Assessment/Plan Details: thus far, blood sugars well controlled, continue current DMII management celebrex helped with pain, continue PT and OT 12 more days of DVT prophylaxis for knee replacement pain control possibly home in next day or two?? as per Dr. Heaton
[2017-02-06] MEDS: Insulin Glargine SoloStar Inj 100 UNIT/ML INSULN.PEN SUBCUT SCH (20:00)
[2017-02-06] MEDS: ZOLPIDEM 10 MG TABLET PO SCH (20:00)
[2017-02-07] MEDS: HYDROcodone-APAP 7.5 MG-325 MG TABLET PO PRN ×3 (03:16→14:38)
[2017-02-07] MEDS: NICOTINE 21 MG /DAY PATCH TRANSDERM SCH (09:04)
[2017-02-07] MEDS: ENOXAPARIN SODIUM 30 MG/0.3 ML SYRINGE SUBCUT SCH (09:04)
[2017-02-07] MEDS: LISINOPRIL 20 MG TABLET PO SCH (09:06)
[2017-02-07] MEDS: ESCITALOPRAM 10 MG TABLET PO SCH (09:06)
[2017-02-07] MEDS: HYDROCHLOROTHIAZIDE 12.5 MG CAPSULE PO SCH (09:06)
[2017-02-07] MEDS: Potassium Chloride Tab 10 MEQ TAB PO SCH (09:06)
[2017-02-07] MEDS: ALLOPURINOL 100 MG TABLET PO SCH (09:06)
[2017-02-07] MEDS: CELECOXIB 200 MG CAPSULE PO SCH (09:06)
[2017-02-07] MEDS: PANTOPRAZOLE 40 MG TABLET PO SCH (09:06)
[2017-02-07] MEDS: Multivitamin Tab 1 TAB PO SCH (09:06)
[2017-02-07] MEDS: GABAPENTIN 300 MG CAPSULE PO SCH (09:06)
[2017-02-07] MEDS: SAXAGLIPTIN HCL 5 MG PO SCH (09:17)
[2017-02-07] MEDS: MESALAMINE 0.375 GM PO SCH (09:17)
[2017-02-07] MEDS: OXYBUTYNIN CHLORIDE 10 MG PO SCH (09:18)
--- NOTE | 2017-02-07 11:31 | ORTHO.PROG ---
Last Taken Vital Signs: Vital Signs - Last Taken Temperature 97.1 F 02/07/17 07:31 Pulse Rate 85 02/07/17 07:31 Respiratory Rate 18 02/07/17 07:31 Blood Pressure 141/85 02/07/17 07:31 Pulse Ox 95 02/07/17 07:31 Subjective: Patient doing well good pain control Objective: Dressing is in place providing appropriate suction. No marked redness erythema or evidence of infection. Vital Signs (24 hrs) Temp Pulse Pulse Resp BP Pulse Ox 02/07/17 07:31 97.1 F 85 18 141/85 95 02/07/17 07:00 18 02/07/17 05:00 97.1 F 78 22 127/74 92 02/07/17 04:20 94 02/07/17 01:00 97.4 F 80 20 135/75 93 02/06/17 20:47 97.1 F 72 20 110/67 93 02/06/17 19:25 95 02/06/17 19:00 90 77 20 02/06/17 16:27 97.7 F 77 20 120/78 91 Motor and sensory exam is nonfocal with good pulses brisk refill. Good motion of the foot and ankle toes in June full extension and approximately 80 of flexion Assessment: Right total knee replacement doing well Plan: Patient status post right total knee replacement overall doing well but still pretty dependent on oxygen and during therapy. We'll see if there is any concern of the hospitalist may have in regard to her oxygen status. She is on oxygen at home for her C-PAP. As far if he gets discharged home will continue anticoagulation with oral medications Xarelto for another 10 days. She will follow-up with us on February 12 for further evaluation and care.
[2017-02-07 12:00] VITALS: BP 133/74; RESP 16; TEMP 97; O2SAT 94
--- NOTE | 2017-02-07 12:09 | PT.PROG ---
Progress Note Progress Note: S: Pt. states she is doing ok. She is unsure of how she will do a few things at home by herself, but after demonstration from PT staff she was feeling much more confident. O: Treatment consisted of moist heat to right knee, f/b micro massage to assist with edema control and pain. She then performed therapeutic exercises: R LE 10 x each: ankle pumps, saq, slr, hip abd/add, laq, sit to stands x 10 and box step ups x 10 on #2 box. She ambulated approx 50 feet x 1 and 20 feet x 1 with use of FWW. She then performed stair climbing x 2 steps with use of walker and right side railing. She also received manual therapy in the from of PROM to right knee into flexion and extension. She was then taken back to her room and placed in her bed with call button within reach and nursing notified. A: Pt. overall performed all activities well. She is approx 0-90 degrees with PROM. She is able to perform bed mobility and sit to stands with supervision only. She performed stair climbing with safety and no concerns. P: Continue per POC to increase strength and activity tolerance. Radha Oro, INSPECTOR [employer]
[2017-02-07] MEDS: Ondansetron ODT Tab 8 MG TAB PO PRN (12:37)
[2017-02-07] MEDS ORDERED: Influenza 17-18 Vaccine (6mo+) Quad 60mcg/0.5ml PF IM ONE (16:10)
--- NOTE | 2017-02-07 17:29 | DCSUMMARY ---
Hospitalization Summary Admit Date: 02/03/2017 Discharge Date: 02/07/17 Primary Diagnosis:: status post right knee replacement Secondary Diagnosis:: Obstructive sleep apnea, on CPAP with intermittent hypoxia Hospital Course: This very pleasant 61-year-old female with end-stage right knee ulcer arthritis that came in for right knee replacement. That was done by Dr. Heaton, see his note regarding the procedure. Hospital service was involved in helping the patient's diabetes, hypertension, and obstructive sleep apnea. Postoperatively, the patient did fairly well and her pain was controlled with combination of hydrocodone, Celebrex, and physical therapy and occupational therapy went well. Her DVT prophylaxis was, should've Lovenox in the hospital and she'll go on Xarelto outside the hospital. Her diabetes was well-controlled during the hospital stay, and this was done on Lantus and the patient has been working hard to change her diet outside the hospital. Her blood pressures were well-controlled during the hospital stay. She did not develop significant anemia to require blood transfusion post surgery. Patient had hypoxia that I think was related to her obstructive sleep apnea more than anything. However, it improved through the hospital stay as well. Could also be a little lower with opiates but right on the border at 87% on room air challenge today and a half a liter by the time I saw her. She uses oxygen at nighttime with her CPAP device. I think that the best thing to do is to hold off on oxygen prescription for now. She's done so well with therapy that she would like to go home today. She does not have any complaints of chest pain or shortness breath nausea or vomiting or constipation. Assessment and Plan: 1. As per discharge assessments noted 2. Disposition: Patient is discharged home. 3. Condition on discharge, stable and improved. 4. Diet: regular diet 5. Activities: resume normal activities, as per physical therapy and Dr. Heaton 6. Follow-Up: 1. Dr. Heaton as scheduled. 2. Dr. Saucedo in one week 7. Medications at the Time of Discharge: Home Medications Medication Instructions Recorded Confirmed Type Potassium Chloride [Klor-Con] 1 tab PO DAILY 11/20/14 02/03/17 History Oxybutynin Chloride [Oxybutynin 10 mg PO DAILY 03/31/16 02/03/17 History Chloride ER] Blood Sugar Diagnostic [Accu-Chek 1 ea MC QD #1 bottle 10/06/16 02/03/17 Rx Olamide Plus] Multivitamin [Multi-Vitamin Daily] 1 ea PO QD tab 10/06/16 02/03/17 History Oxygen (O2) 1 unit unit 10/06/16 01/19/17 History Allopurinol 1 tab PO DAILY #90 tab 10/09/16 02/03/17 Rx Gabapentin 1 cap PO DAILY #30 cap 10/13/16 02/03/17 Rx Saxagliptin HCl [Onglyza] 5 mg PO DAILY #30 tab 10/13/16 02/03/17 Rx Escitalopram Oxalate [Lexapro] 1 tab PO DAILY #30 tab 10/30/16 02/03/17 Clinic Hydroxyzine HCl 25 mg PO TID PRN #30 tab 10/30/16 02/03/17 Clinic insulin glargine 100 unit/mL (3 5 unit SUBCUT QHS #3 ml 11/25/16 02/03/17 Rx mL) subcutaneous pen pen needle, diabetic 31 gauge x See Dose Instructions .ROUTE 11/28/16 01/19/17 Rx 05/15" .MEDSUPPLY #150 ea mesalamine ER 0.375 gram 1.5 g PO QAM 01/02/17 02/03/17 History capsule,extended release 24 hr pantoprazole 40 mg tablet,delayed 40 mg PO BID tab 01/02/17 02/03/17 History release zolpidem 10 mg tablet 10 mg PO QHS #30 tab 01/09/17 02/03/17 Rx celecoxib 200 mg capsule 1 cap PO DAILY #30 cap 01/20/17 02/03/17 Clinic lisinopril 20 1 tab PO QDAY #30 tab 01/20/17 02/03/17 Rx mg-hydrochlorothiazide 12.5 mg tablet HYDROcodone/APAP 7.5/325 Tab 1 - 2 tab PO Q4H PRN #50 tab 02/07/17 Rx [[place] 7.5/325 Tab] Nicotine 21mg Patch [Nicoderm CQ 1 patch TRANSDERM DAILY #30 patch 02/07/17 Rx 21mg Patch] Rivaroxaban [Xarelto] 10 mg PO DAILY #10 tab 02/07/17 Rx 8. Time, care, counseling and coordination of care for this discharge is greater than 30 minutes. Exam - Vitals Vital Signs: Vital Signs Temperature 97 F Temperature Source Temporal Artery Scan Pulse Rate [Apical] 90 Pulse Rate [Pulse Oximeter] 80 Pulse Rate [Telemetry] 78 Pulse Rate 76 Respiratory Rate 16 Blood Pressure [L arm] 126/68 Blood Pressure [Right Arm] 133/74 Pulse Ox 94 Oxygen Flow Rate 1 Oxygen Delivery Method Nasal Cannula Height 5 ft 2 in Weight 240 lb 9.6 oz - General General Appearance: No Acute Distress, Cooperative - Head Head Exam: Normal Inspection, Normocephalic, Atraumatic - Eye Eye Exam: POSITIVE: No Scleral Icterus - ENT ENT Exam: POSITIVE: Mucous Membranes Moist - Respiratory Respiratory Exam: POSITIVE: Clear to Auscultation - Bilaterally, Breathing Non Labored - Cardiovascular Cardiovascular Exam: POSITIVE: RRR, No Murmur, No Clicks, No Gallops, No Rubs, No JVD - GI/Abdominal GI/Abdominal Exam: POSITIVE: Normal Bowel Sounds, Non Tender, Non Distended, Soft - Extremities Extremities Exam: POSITIVE: No Clubbing Present, No Edema Present, No Cyanosis Present Additional Extremities Exam Details: Less edema in right leg. Dressing is clean, dry, intact. - Neurological Neurological Exam: POSITIVE: Alert, Oriented x 3, No Facial Droop, Speech Intact / Clear - Psychiatric Psychiatric Exam: POSITIVE: Normal Affect, Normal Mood Data Peritnent Studies: 02/06/17 02/06/17 06:01 06:01 WBC 10.7 RBC 3.69 L Hgb 11.2 L Hct 33.6 L Plt Count 332 Sodium 138 Potassium 4.6 Chloride 104 Carbon Dioxide 25 Anion Gap 9 BUN 16 Creatinine 0.9 Estimated GFR > 60 BUN/Creatinine Ratio 17.77 Glucose 127 H Calculated Osmolality 288.0 Calcium 9.3 Patient Problems - Patient Problem List (1) Status post right knee replacement Current Visit: Yes Status: Acute Code(s): Z96.651 - Presence of right artificial knee joint Category: Medical (2) Diabetes mellitus, type 2 Current Visit: Yes Status: Chronic Qualifiers: Diabetes mellitus complication status: without complication 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: with front line supervisor use Qualified Code(s): E11.9 - Type 2 diabetes mellitus without complications; 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
[2017-02-07] MEDS ORDERED: Rivaroxaban Tab 10 MG TAB PO SCH (21:00)
--- NOTE | 2017-02-09 10:31 | OTI REPORT ---
Thank you for the referral of Ashley Santillan. She was seen on 02/05/17 for an occupational therapy inpatient evaluation status post right total knee arthroplasty. SUBJECTIVE: The patient is a 61-year-old female who is being seen secondary to having a right total knee. Prior to admission, the patient lived at home by herself. She does have a higher toilet seat as well as a shower chair and grab bars in her bathroom. She does not wear socks, but she was interested in the chainstitch seat joiner as well as the bath sponge today after instruction. PAST MEDICAL HISTORY: Past medical history can be found in the patient's medical record. OBJECTIVE FINDINGS: Bed mobility: The patient was able to come from supine to sit with min assist. While sitting edge of bed she was instructed in use of the chainstitch seat joiner as she is only able to bend to the mid calf area. The patient is not able to reach down to don her pants. Pain: The patient rates her pain as a 7/10 on the verbal analog scale (0=no pain , 10=worst pain). Transfers: The patient is able to transfer from sit to stand with min assist with knee immobilizer on. Activities of daily living: The patient was issued a chainstitch seat joiner as well as a bath sponge for increased independence at home. She was able to use the chainstitch seat joiner with min assist today. She required max assist to pull shorts to waist level secondary to balance difficulties. ASSESSMENT: The patient would benefit from one more occupational therapy session; hopefully when she is in less pain to go over adaptive equipment use and home safety as well as safety with transfers. Short-Term Goals: To be met by discharge from inpatient: Patient will be able to dress self with chainstitch seat joiner independently. Patient will be able to complete a toilet transfer with stand by assist and use of walker. Patient will be able to complete all functional transfers with stand by assistance. Long-Term Goals: To be met following discharge from inpatient: Patient will be discharged home, demonstrating safety and independence with all activities of daily living, functional tasks, adaptive equipment, and transfers. TREATMENT PLAN: Patient will be seen B.I.D during the week and one time per day over the weekend as an inpatient to address the above goals and objectives. INITIAL TREATMENT: Treatment today consisted of the initial evaluation activities only. GOLDIE
--- NOTE | 2017-02-09 11:37 | PT PM DAY ---
Diagnosis : Right Total Knee Arthroplasty PM - Physical Therapy S: The patient states the bottom of her foot is still numb from the anesthesia. The patient rates her pain as a 5 to 6/10 on the verbal analog scale (0=no pain, 10=worst pain). O: The patient was brought down to the department by occupational therapy. She received an application of moist heat pack x20 minutes including set up to the right knee followed by edema control modalities for her foot and lower extremity. After passive movement, the patient demonstrated -1 degree of extension to 90 degrees of knee flexion. The patient have some quad control , but it was not real strong yet. She performed sit to stands, open chain work , boxes on the #2 box, and pre-stair activities. The patient then ambulated up to 50 feet x3. A: The patient was pretty fatigued by the end of rehab today. P: Continue seeing patient BID during the week and one time per day over the weekend for transfers, ambulation, and range of motion/strengthening exercises. MTDD
== END 2017-02-07 17:11 | disposition home or self-care (01) | DRG 470 ==
LOC: OPS 02-03 05:57 → MED/SURG 02-03 13:18
PROVIDERS: ADMIT Orthopaedic Surgery; ATTEND Orthopaedic Surgery

== ENCOUNTER 2018-04-10 22:02 | Inpatient (IN) ==
[2018-04-10] MEDS ORDERED: ONDANSETRON 4 MG/2 ML VIAL IVP ONE (22:39)
--- NOTE | 2018-04-10 22:44 | PDOC ---
General Adult HPI - General Chief Complaint: Genitourinary Complaint Stated Complaint: PAINFUL URINATION Date Seen by Provider: 04/10/18 Time Seen by Provider: 22:25 Source: POSITIVE: Patient Exam Limitations: POSITIVE: No limitations - History of Present Illness Initial Comment: Patient is a 63-year-old female who presents to the emergency department with multiple complaints. Patient reports this evening she had taken her Ambien and felt very weak in the legs. She also describes what sounds like a low-grade fever. He has not been feeling well no significant cough or shortness of breath. Last night she did have significant urinary urgency and also some dysuria. Patient denies jim abdominal pain. She had a mild discomfort in her shoulder blades that she has a hard time describing just feels unwell. Patient was noncompliant with her insulin this evening. Have you received a tetanus shot in the past 10 years?: Unknown - Patient Home Medications Home Medications: Home Medications Oxygen (O2) 1 unit INH DAILY unit 10/06/16 mesalamine ER 0.375 gram capsule,extended release 24 hr 1.5 g PO QAM 01/02/17 lisinopril 20 mg-hydrochlorothiazide 12.5 mg tablet 1 tab PO QDAY #90 tab 03/16/17 Pen Needle, Diabetic [Ulticare Pen Needle] 0 amp .ROUTE .MEDSUPPLY 07/02/17 promethazine 25 mg tablet 25 mg PO Q6H PRN #20 tab 07/07/17 nystatin 100,000 unit/gram topical powder 1 applic TOPICAL BID #60 ea 07/24/17 blood sugar diagnostic strips See Rx Instructions MISCELLANEOUS QD #1 bottle 09/03/17 ciprofloxacin 500 mg tablet 500 mg PO Q12H #14 tab 09/03/17 pantoprazole 40 mg tablet,delayed release 40 mg PO QDAY #30 tab 09/30/17 insulin glargine (U-100) 100 unit/mL (3 mL) subcutaneous pen 12 unit SUBCUT QHS #15 ml 10/09/17 diphenoxylate-atropine 2.5 mg-0.025 mg tablet 1 tab PO Q6-8H PRN #20 tab 11/20/17 saxagliptin 5 mg tablet 5 mg PO QDAY #30 tab 12/14/17 allopurinol 100 mg tablet 100 mg PO QDAY #90 tab 12/31/17 zolpidem 10 mg tablet 10 mg PO QHS #30 tab 02/10/18 cyclobenzaprine 10 mg tablet 10 mg PO TID PRN #30 tab 03/19/18 fluoxetine 40 mg capsule 40 mg PO QDAY #30 cap 04/05/18 celecoxib 200 mg capsule 200 mg PO QDAY #1 cap 04/09/18 gabapentin 300 mg capsule 300 mg PO QDAY #30 cap 04/09/18 oxybutynin chloride ER 10 mg tablet,extended release 24 hr 10 mg PO QDAY #30 tab 04/09/18 - Patient Allergies Allergies/Adverse Reactions: Allergies Allergy/AdvReac Type Severity Reaction Status Date / Time nitrofurantoin Allergy Severe SOB Verified 04/11/18 00:27 Past Medical History - heen HEENT History: Denies History Cardiovascular History: Hypertension, Hyperlipidemia Respiratory History: Sleep Apnea, Home Oxygen Use, Home CPAP Use Additional Respiratory History: 1-2LITERS AT NIGHT Gastrointestinal History: GERD, Irritable Bowel Syndrome Additional Gastrointestinal History: IRRITABLE BOWEL SYNDROME/OBESITY/DIABETIC GASTROPARESIS Genitourinary History: Recurrent UTI, Kidney Stones Additional Genitourinary History: UA RESULTS SHOWN TO DR ESCOBAR. DR GRANT OFFICE CALLED AND MSG LEFT TO ASSESS AND TREAT? FOR UTI?? SB Endocrine History: Type 2 Diabetes (oral), Type 2 Diabetes (insulin) Additional Endocrine History: SURGERY ORIGINALLY SCHEDULED FOR OCT 2016. HGAIC WAS ELEVATED AND SURGERY WAS CANCELLED. 01/26/17 LABS RECHECKED. HGA1C 7.35, Musculoskeletal History: Gout, Joint Pain, Other (please comment) Prosthesis or Implant: Yes (L knee and heel) Additional Musculoskeletal History: 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 Neurological History: Denies History Additional Neurological History: PERIPHERAL SENSORY NEUROPATHY Blood Disorders: Denies History Psychiatric History: Depression, Anxiety Disorders History of Sexually Transmitted Diseases: No Cancer History: Denies History History of MDRO: No History of Other Communicable Diseases: Yes (Varicella) Alcohol Use: None In the Past 12 Months, Have Used or Abuse Any Substance: None Previous Surgical History: No Type / Date of Surgery: APPY/HYSTERECTOMY/BILAT KNEE SCOPES/BILAT FOOT SX/ LEFT ACHILLES TENDON REPAIR/TONSILLECTOMY/R OOPHORECTOMY/LEFT KNEE ACL/ LEFT TKA/LEFT RCR/BIENVENIDO Anesthesia Reactions: No Malignant Hyperthermia: No Significant Family History: Cancer, Diabetes, Hypertension Additional Family History: SON - ULCERRATIVE COLITIS. OTHER- LIVER CANCER Past Medical History Reviewed: Reviewed - No Changes ROS - Limitations ROS Limitations: No Limitations Constitution: REPORTS: Other (Subjective fever) Cardiovascular: REPORTS: Denies Cardiac Symptoms Respiratory: REPORTS: Denies Resp Symptoms Neurological: REPORTS: Weakness Gastrointestinal: REPORTS: Nausea, Vomitting Endocrine: REPORTS: Fatigue Musculoskeletal: REPORTS: Denies MS Symptoms Genitourinary: REPORTS: Discharge, Dysuria, Other (Urinary frequency) Eyes: REPORTS: Denies Symptoms ENT: REPORTS: Sore Throat Skin: REPORTS: Denies Skin Symptoms Lympathic: REPORTS: Denies Lympathic Symptoms Immunologic: POSITIVE: Denies Symptoms General Adult Exam - General Appearance General Appearance: POSITIVE: Alert, Cooperative, No Acute Distress, No Evidence of Trauma - HEENT HEENT: POSITIVE: Head Inspection Nml, Eyes Inspection Nml, Ears Inspection Nml, Nose Inspection Nml, Oral/Dental Inspect. Nml - Pupils Pupil Size: 4 mm: Bilateral - Neck Neck: POSITIVE: Normal Inspection - Respiratory Respiratory: POSITIVE: No Respiratory Distress, Breath Sounds Normal, Chest Non- Tender - Cardiovascular Cardiovascular: POSITIVE: Regular Rate & Rhythm, No Murmur, No Gallop - Abdomen Abdomen: Soft: (All Quadrants), Denies Tenderness: (All Quadrants), No Guarding: (All Quadrants), No Rebound: (All Quadrants) Additional Abdominal Details: Examination limited secondary to body habitus - Back Back: POSITIVE: Normal Inspection - Skin Skin: POSITIVE: Normal Color - Extremities Additional Extremities Details: No tenderness to palpation of the lower extremities bilaterally - Neurological / Psychological Neurological: POSITIVE: Affect Apporpriate, Other (Strength and sensation equal in the lower extremities bilaterally without focal deficit.) General Adult Progress - Results Reviewed by me Xrays/CTs/US Reviewed by me: Yes Lab Results Reviewed by Me: Yes Lab Results:: Laboratory Results 04/10/18 04/10/18 04/10/18 22:45 22:45 22:45 WBC 16.51 H RBC 4.39 Hgb 13.6 Hct 39.9 MCV 90.9 MCH 31.0 MCHC 34.1 RDW Std Deviation 42.5 RDW Coeff of Madan 13.1 Plt Count 349 MPV 9.5 Immature Gran % (Auto) 0.5 Neut % (Auto) 84.4 H Lymph % (Auto) 8.2 L [place] % (Auto) 6.5 Eos % (Auto) 0.2 Baso % (Auto) 0.2 Immature Gran # (Auto) 0.08 Neut # (Auto) 13.93 Lymph # (Auto) 1.36 [place] # (Auto) 1.07 H Eos # (Auto) 0.04 Baso # (Auto) 0.03 WBC Morphology Comment Normal morphology Plt Morphology Comment Normal morphology RBC Morph Comment Normal morphology Sodium 132 L Potassium 4.9 Chloride 96 L Carbon Dioxide 24 Anion Gap 12 BUN 22 Creatinine 1.2 Estimated GFR 45 BUN/Creatinine Ratio 18.33 Glucose 371 H Calculated Osmolality 291.0 Calcium 9.5 Total Bilirubin 0.8 AST 30 ALT 24 Alkaline Phosphatase 118 Troponin I Handheld 0.000 Total Protein 7.1 Albumin 4.0 Globulin 3.1 Albumin/Globulin Ratio 1.20 L Ur Collection Type Urine Color Urine Clarity Urine pH Ur Specific [place] Urine Protein Urine Glucose (UA) Urine Ketones Urine Occult Blood Urine Nitrate Urine Bilirubin Urine Urobilinogen Ur Leukocyte Esterase Urine RBC Urine WBC Ur Squamous Epith Cells Ur Renal Epithelial Cell Urine Crystals Urine Bacteria Urine Casts Urine Mucus Urine Trichomonas Urine Yeast Ur Culture Indicated? Acetone Level Small 04/10/18 23:05 WBC RBC Hgb Hct MCV MCH MCHC RDW Std Deviation RDW Coeff of [place] Plt Count MPV Immature Gran % (Auto) Neut % (Auto) Lymph % (Auto) [place] % (Auto) Eos % (Auto) Baso % (Auto) Immature Gran # (Auto) Neut # (Auto) Lymph # (Auto) [place] # (Auto) Eos # (Auto) Baso # (Auto) WBC Morphology Comment Plt Morphology Comment RBC Morph Comment Sodium Potassium Chloride Carbon Dioxide Anion Gap BUN Creatinine Estimated GFR BUN/Creatinine Ratio Glucose Calculated Osmolality Calcium Total Bilirubin AST ALT Alkaline Phosphatase Troponin I Handheld Total Protein Albumin Globulin Albumin/Globulin Ratio Ur Collection Type Cath specimen Urine Color Yellow Urine Clarity Slightly cloudy Urine pH 6.0 Ur Specific [place] 1.015 Urine Protein 100 A Urine Glucose (UA) >=1000 Urine Ketones 15 Urine Occult Blood Moderate H Urine Nitrate Positive A Urine Bilirubin Negative Urine Urobilinogen 0.2 Ur Leukocyte Esterase Small Urine RBC 1-3 Urine WBC 35-40 Ur Squamous Epith Cells Rare Ur Renal Epithelial Cell None Urine Crystals None Urine Bacteria Many H Urine Casts None Urine Mucus Few Urine Trichomonas None Urine Yeast None Ur Culture Indicated? Culture set Acetone Level CBC and BMP: 04/11/18 03:50 04/11/18 03:50 - Patient's Progress MDM / ED Course: Patient is a 63-year-old female who presents to the emergency department with weakness. Her vital signs are notable for borderline tachycardia and examination demonstrates overall well-appearing female in no acute distress. Differential diagnosis includes but is not limited to medication overdose, electrolyte abnormality, ACS, pneumonia. EKG demonstrates no evidence of acute ST changes and her initial troponin was negative. Laboratory studies do demonstrate a leukocytosis of findings to suggest urinary tract infection. Chemistry panel demonstrates hyperglycemia but no evidence of acidosis at this time. Patient was given fluids and treated with ceftriaxone 2 g. She does not have any focal weakness at this time that would suggest acute stroke. Given her generalized weakness in the setting of infection will be admitted for observation. I spoke with the hospitalist to admit patient. Patient did develop a fever after this time and she was given a dose of acetaminophen as well. I suspect some of her symptoms were exacerbated by using her Ambien this evening. Patient Care Time - Estimated PCT Patient Care Time (In Minutes): 45 Vital Signs - VS Reviewed Vital Signs Reviewed: Yes Discharge Clinical Impression: Weakness UTI (urinary tract infection) Qualifiers: Urinary tract infection type: acute cystitis Hematuria presence: without hematuria Qualified Code(s): N30.00 - Acute cystitis without hematuria Discharge Disposition: Admit to Observation Condition: Good Date Decision to Admit to Inpatient: 04/10/18 Time Decision to Admit to Inpatient: 23:29
[2018-04-10 22:53] LABS: BASOPHILS # (AUTO) 0.03 10*3/UL; BASOPHILS % (AUTO) 0.2 % (0-1); EOSINOPHILS # (AUTO) 0.04 10*3/UL; EOSINOPHILS % (AUTO) 0.2 % (0-8); Hematocrit [HCT] 39.9 % (37.0-47.0); Hemoglobin [HGB] 13.6 g/dL (12.0-16.0); LYMPHOCYTES # (AUTO) 1.36 10*3/uL; MEAN CORPUSCULAR HGB CONC 34.1 g/dL (33-37); MEAN CORPUSCULAR VOLUME 90.9 FL (81-99); MEAN PLATELET VOLUME 9.5 FL (7.4-12.2); MONOCYTES # (AUTO) 1.07 10*3/UL (0.3-0.8); MONOCYTES % (AUTO) 6.5 % (5-15); NEUTROPHILS # (AUTO) 13.93 10*3/UL; NEUTROPHILS % (AUTO) 84.4 % (50-80); RED BLOOD COUNT 4.39 10^6/uL (4.20-5.40)
--- NOTE | 2018-04-10 23:00 | EKG ---
[address] [id number] Measurements Intervals [place] Rate: 97 P: 5 MO: 152 QRS: 8 QRSD: 88 T: 43 QT: 366 QTc: 420 Interpretive Statements SINUS RHYTHM Compared to ECG 10/28/2016 10:54:47 No significant changes Electronically Signed On 04-11-18 12:13:29 MST by Alton Gil [email or web address]
[2018-04-10 23:03] LABS: BILIRUBIN,URINE NEGATIVE (NEG); CLARITY,URINE Slightly Cloudy (CLEAR); COLOR,URINE YELLOW (Y); OCCULT BLOOD,URINE MODERATE (NEG); PROTEIN,URINE 100 mg/dl (NEG); UROBILINOGEN,URINE 0.2 EU/dL (0.2)
[2018-04-10 23:07] LABS: BLOOD UREA NITROGEN 22 mg/dL (7-22); BUN/CREATININE RATIO 18.33 (6-20)
[2018-04-10 23:12] LABS: PLATELET MORPHOLOGY COMMENT NORMAL MORPHOLOGY (NORM); RBC MORPHOLOGY COMMENT NORMAL MORPHOLOGY (NORM); WBC MORPHOLOGY COMMENT NORMAL MORPHOLOGY (NORM)
[2018-04-10 23:13] LABS: BACTERIA,URINE MANY; GLUCOSE, URINE (UA) >=1000 mg/dL (NEG); SQUAMOUS EPITHELIAL CELL,UR RARE; URINE SAMPLE TYPE CATH SPECIMEN; WBC,URINE 35-40
--- NOTE | 2018-04-10 23:15 | DI ---
EXAM: XR Chest, 1 View CLINICAL HISTORY: Cough. TECHNIQUE: Frontal view of the chest. COMPARISON: CXR dated 08/13/2016. FINDINGS: Lungs: Stable appearance of the lungs. No focal consolidation. No evidence of pulmonary edema. Pleural space: No pleural effusion. No pneumothorax. Heart: Unremarkable. No cardiomegaly. Mediastinum: Unremarkable. Bones/joints: Unremarkable. IMPRESSION: Stable CXR compared to 08/13/2016. No radiographic evidence of acute cardiopulmonary process.
[2018-04-10] MEDS ORDERED: cefTRIAXone Inj 2 GM in Sodium Chloride 0.9% 100 ML IV ONE (23:24)
[2018-04-10] MEDS ORDERED: Sodium Chloride 0.9% 1,000 ML PRIMARY IV ONE (23:34)
[2018-04-10] MEDS ORDERED: Lactated Ringers 1,000 ML PRIMARY IV SCH (23:45)
[2018-04-10] MEDS ORDERED: ACETAMINOPHEN 500 MG TABLET PO ONE (23:54)
[2018-04-10] MEDS ORDERED: Promethazine Tab 25 MG TAB PO PRN (23:55)
[2018-04-10] MEDS ORDERED: ONDANSETRON 4 MG/2 ML VIAL IVP PRN (23:57)
[2018-04-10] MEDS ORDERED: LIDOCAINE W/ SODIUM BICARB 0.5 ML SYR SUBD PRN (23:57)
[2018-04-10] MEDS ORDERED: LIDOCAINE HCL 2 % 10 ML JELLY URO-JECT TOPICAL PRN (23:57)
[2018-04-10] MEDS ORDERED: CALCIUM CARBONATE 500 MG (TUMS) CHEWABLE TABLET PO PRN (23:57)
[2018-04-10] MEDS ORDERED: DOCUSATE 100 MG CAPSULE PO PRN (23:57)
[2018-04-11] MEDS ORDERED: Acetaminophen 1000mg Inj 1,000 MG/100 ML VIAL IV PRN
[2018-04-11] MEDS ORDERED: FLUCONAZOLE 200 MG TABLET PO ONE (00:01)
--- NOTE | 2018-04-11 00:06 | PDOC ---
HPI - History of Present Illness History of Present Illness: This very nice 63-year-old female she had reported that after she took her Ambien she had the some generalized weakness also had the urinary urgency and with associated dysuria and has not taken her insulin for her diabetes. This morning she feels much better she feels back to her normal self the generalized weakness she experienced after the Ambien is resolved and she would like to be discharged home. Her white count is improved with IV antibiotics she was also treated with Flagyl for vaginosis and given a fluconazole for her possible yeast infection. Patient agrees to one more dose of IV antibiotics before she goes home but she absolutely wants to go home. I will prescribe Augmentin by mouth for a total of 7 days and Flagyl. Past Medical History Medical History: 1. Hypertension. 2. Diabetes. 3. Gout. 4. Peripheral neuropathy. 5. Probable GERD. 6. Obstructive sleep apnea, on oxygen therapy at night. CPAP therapy to be initiated post hospital stay. Surgical History: 1. Status post cholecystectomy today. 2. Hysterectomy. 3. Arthroscopic knee surgeries. 4. Tonsillectomy. 5. Appendectomy. 6. Unilateral oophorectomy. 7. Achilles tendon repair Pertinent Family History: Father had myocardial infarction Past Social History: Smokes. Does not drink alcohol. Tobacco Use: Former Smoker In the Past 12 Months, Have Used or Abuse Any of the Following Substance: None Medication / Allergies Home Medications: Home Medications Medication Instructions Recorded Confirmed Type Oxygen (O2) 1 unit INH DAILY unit 10/06/16 04/11/18 History mesalamine ER 0.375 gram 1.5 g PO QAM 01/02/17 04/11/18 History capsule,extended release 24 hr lisinopril 20 1 tab PO QDAY #90 tab 03/16/17 04/11/18 Rx mg-hydrochlorothiazide 12.5 mg tablet Pen Needle, Diabetic [Ulticare Pen 0 amp .ROUTE .MEDSUPPLY 07/02/17 04/11/18 History Needle] promethazine 25 mg tablet 25 mg PO Q6H PRN #20 tab 07/07/17 04/11/18 Rx nystatin 100,000 unit/gram topical 1 applic TOPICAL BID #60 ea 07/24/17 04/11/18 Rx powder blood sugar diagnostic strips See Rx Instructions MISCELLANEOUS 09/03/17 04/11/18 Rx QD #1 bottle ciprofloxacin 500 mg tablet 500 mg PO Q12H #14 tab 09/03/17 04/11/18 Rx pantoprazole 40 mg tablet,delayed 40 mg PO QDAY #30 tab 09/30/17 04/11/18 Rx release insulin glargine (U-100) 100 12 unit SUBCUT QHS #15 ml 10/09/17 04/11/18 Rx unit/mL (3 mL) subcutaneous pen diphenoxylate-atropine 2.5 1 tab PO Q6-8H PRN #20 tab 11/20/17 04/11/18 Rx mg-0.025 mg tablet saxagliptin 5 mg tablet 5 mg PO QDAY #30 tab 12/14/17 04/11/18 Rx allopurinol 100 mg tablet 100 mg PO QDAY #90 tab 12/31/17 04/11/18 Rx zolpidem 10 mg tablet 10 mg PO QHS #30 tab 02/10/18 04/11/18 Rx cyclobenzaprine 10 mg tablet 10 mg PO TID PRN #30 tab 03/19/18 04/11/18 Rx fluoxetine 40 mg capsule 40 mg PO QDAY #30 cap 04/05/18 04/11/18 Rx celecoxib 200 mg capsule 200 mg PO QDAY #1 cap 04/09/18 04/11/18 Clinic gabapentin 300 mg capsule 300 mg PO QDAY #30 cap 04/09/18 04/11/18 Rx oxybutynin chloride ER 10 mg 10 mg PO QDAY #30 tab 04/09/18 04/11/18 Rx tablet,extended release 24 hr Allergies/Adverse Reactions: Allergies Allergy/AdvReac Type Severity Reaction Status Date / Time nitrofurantoin Allergy Severe SOB Verified 04/11/18 00:27 Review of Systems - Review of Systems All Systems: Reviewed & No Additional Complaints Except as Stated - Respiratory Respiratory: DENIES: Negative System Review, Cough, Sputum, Dyspnea At Rest, Dyspnea with Exertion, Pleuritic Pain, Hemoptysis, Wheezing, Other, See HPI - Cardiovascular Cardiovascular: DENIES: Negative System Review, Chest Pain, Edema, Syncope, Palpitations, Orthopnea, Paroxysmal Nocturnal Dyspnea, Other, See HPI - Gastrointestinal Gastrointestinal / Abdominal: DENIES: Negative System Review, Nausea, Vomiting, Diarrhea, Constipation, Abdominal Pain, Bloody Stool, Poor Appetite, Heartburn, Regurgitation, Bloating, Lactose Intolerance, Melena, Bright Red Blood per Rectum, Other, See HPI Exam - Vitals Vital Signs: Vital Signs Temperature 100.8 F - General General Appearance: No Acute Distress, Cooperative - Head Head Exam: Normal Inspection, Normocephalic, Atraumatic - Eye Eye Exam: POSITIVE: Normal Appearance, PERRL, EOMI, No Scleral Icterus - Respiratory Respiratory Exam: POSITIVE: Clear to Auscultation - Bilaterally, Breathing Non Labored, Normal To Percussion, Normal to Percussion and Palpation - Cardiovascular Cardiovascular Exam: POSITIVE: RRR, No Murmur, No Clicks, No Gallops, No Rubs, PMI Non-Displaced - GI/Abdominal GI/Abdominal Exam: POSITIVE: Normal Bowel Sounds, Non Tender, Non Distended, Soft, No Masses, No Hepatomegaly, No Splenomegaly, No Organomegaly - Extremities Extremities Exam: POSITIVE: No Clubbing Present, No Edema Present, No Cyanosis Present Results - Labs CBC and BMP: 04/11/18 03:50 04/11/18 03:50 Assessment and Plan - Patient Problems (1) Vaginosis Current Visit: Yes Status: Acute Comment: flayl iv continue with by mouth at home Code(s): N76.0 - Acute vaginitis (2) UTI (urinary tract infection) Current Visit: Yes Status: Acute Comment: ceftriaxone iv Code(s): N39.0 - Urinary tract infection, site not specified Qualifiers: Urinary tract infection type: acute cystitis Hematuria presence: without hematuria Qualified Code(s): N30.00 - Acute cystitis without hematuria (3) Diabetes mellitus, type 2 Current Visit: No Status: Chronic Onset Date: ~2014 Comment: usual meds Qualifiers: (4) Earnestine albicans infection Current Visit: Yes Status: Acute Comment: fluconazole pox1 Code(s): B37.9 - Candidiasis, unspecified
[2018-04-11] MEDS: HEPARIN 5000 UNIT/1 ML SUBCUT SCH ×2 (01:12→09:28)
[2018-04-11] MEDS: metroNIDAZOLE 500mg (Premix) 500 MG/100 ML BAG IV SCH ×2 (01:31→09:31)
[2018-04-11] MEDS: Insulin Lispro Flexpen 300 UNIT/3 ML INSULN.PEN SUBCUT SCH ×2 (01:35→06:53)
[2018-04-11 04:17] LABS: BASOPHILS # (AUTO) 0.02 10*3/UL; BASOPHILS % (AUTO) 0.2 % (0-1); EOSINOPHILS # (AUTO) 0.02 10*3/UL; EOSINOPHILS % (AUTO) 0.2 % (0-8); Hemoglobin [HGB] 11.8 g/dL (12.0-16.0); LYMPHOCYTES # (AUTO) 1.66 10*3/uL; MEAN CORPUSCULAR HEMOGLOBIN 30.1 PG (27-31); MEAN CORPUSCULAR HGB CONC 32.8 g/dL (33-37); MEAN CORPUSCULAR VOLUME 91.8 FL (81-99); MEAN PLATELET VOLUME 9.4 FL (7.4-12.2); MONOCYTES # (AUTO) 0.77 10*3/UL (0.3-0.8); MONOCYTES % (AUTO) 6.3 % (5-15); NEUTROPHILS # (AUTO) 9.69 10*3/UL; NEUTROPHILS % (AUTO) 79.1 % (50-80); PLATELET MORPHOLOGY COMMENT NORMAL MORPHOLOGY (NORM); RBC MORPHOLOGY COMMENT NORMAL MORPHOLOGY (NORM); RED BLOOD COUNT 3.92 10^6/uL (4.20-5.40); WBC MORPHOLOGY COMMENT NORMAL MORPHOLOGY (NORM)
[2018-04-11 04:35] LABS: SERUM ALBUMIN 3.4 g/dL (3.5-4.8)
[2018-04-11] MEDS ORDERED: PANTOPRAZOLE 40 MG TABLET PO SCH (07:00)
[2018-04-11] MEDS ORDERED: HYDROCHLOROTHIAZIDE 12.5 MG CAPSULE PO SCH (07:00)
[2018-04-11] MEDS ORDERED: ALLOPURINOL 100 MG TABLET PO SCH (09:00)
[2018-04-11] MEDS ORDERED: Oxybutynin ER Tab 5 MG TAB PO SCH (09:00)
[2018-04-11] MEDS ORDERED: FLUoxetine 20 MG CAPSULE PO SCH (09:00)
[2018-04-11] MEDS ORDERED: GABAPENTIN 300 MG CAPSULE PO SCH (09:00)
[2018-04-11] MEDS ORDERED: NYSTATIN 15 GM POWDER TOPICAL SCH (09:00)
[2018-04-11] MEDS ORDERED: MESALAMINE 500 MG CAPSULE PO SCH (09:00)
[2018-04-11] MEDS ORDERED: LISINOPRIL 20 MG TABLET PO SCH (09:00)
--- NOTE | 2018-04-11 09:47 | DCSUMMARY ---
Hospitalization Summary Hospital Course: Final Discharge Diagnosis: Current Visit Problems Problem Status Onset Code Weakness Acute R53.1 UTI (urinary tract infection) Acute N39.0 Vaginosis Acute N76.0 Earnestine albicans infection Acute B37.9 Diagnostic Data, Laboratory Data, and Procedures of Signifigance: Laboratory Results 04/10/18 04/10/18 04/10/18 22:45 22:45 22:45 WBC 16.51 H RBC 4.39 Hgb 13.6 Hct 39.9 MCV 90.9 MCH 31.0 MCHC 34.1 RDW Std Deviation 42.5 RDW Coeff of Madan 13.1 Plt Count 349 MPV 9.5 Immature Gran % (Auto) 0.5 Neut % (Auto) 84.4 H Lymph % (Auto) 8.2 L [place] % (Auto) 6.5 Eos % (Auto) 0.2 Baso % (Auto) 0.2 Immature Gran # (Auto) 0.08 Neut # (Auto) 13.93 Lymph # (Auto) 1.36 [place] # (Auto) 1.07 H Eos # (Auto) 0.04 Baso # (Auto) 0.03 WBC Morphology Comment Normal morphology Plt Morphology Comment Normal morphology RBC Morph Comment Normal morphology Sodium 132 L Potassium 4.9 Chloride 96 L Carbon Dioxide 24 Anion Gap 12 BUN 22 Creatinine 1.2 Estimated GFR 45 BUN/Creatinine Ratio 18.33 Glucose 371 H Calculated Osmolality 291.0 Calcium 9.5 Total Bilirubin 0.8 AST 30 ALT 24 Alkaline Phosphatase 118 Troponin I Handheld 0.000 Total Protein 7.1 Albumin 4.0 Globulin 3.1 Albumin/Globulin Ratio 1.20 L Ur Collection Type Urine Color Urine Clarity Urine pH Ur Specific [place] Urine Protein Urine Glucose (UA) Urine Ketones Urine Occult Blood Urine Nitrate Urine Bilirubin Urine Urobilinogen Ur Leukocyte Esterase Urine RBC Urine WBC Ur Squamous Epith Cells Ur Renal Epithelial Cell Urine Crystals Urine Bacteria Urine Casts Urine Mucus Urine Trichomonas Urine Yeast Ur Culture Indicated? Acetone Level Small 04/10/18 04/11/18 04/11/18 23:05 03:50 03:50 WBC 12.23 H RBC 3.92 L Hgb 11.8 L Hct 36.0 L MCV 91.8 MCH 30.1 MCHC 32.8 L RDW Std Deviation 42.6 RDW Coeff of Madan 13.0 Plt Count 293 MPV 9.4 Immature Gran % (Auto) 0.6 Neut % (Auto) 79.1 Lymph % (Auto) 13.6 [place] % (Auto) 6.3 Eos % (Auto) 0.2 Baso % (Auto) 0.2 Immature Gran # (Auto) 0.07 Neut # (Auto) 9.69 Lymph # (Auto) 1.66 [place] # (Auto) 0.77 Eos # (Auto) 0.02 Baso # (Auto) 0.02 WBC Morphology Comment Normal morphology Plt Morphology Comment Normal morphology RBC Morph Comment Normal morphology Sodium 135 Potassium 4.2 Chloride 100 Carbon Dioxide 25 Anion Gap 10 BUN 22 Creatinine 1.1 Estimated GFR 50 BUN/Creatinine Ratio 20.00 Glucose 227 H Calculated Osmolality 289.0 Calcium 8.9 Total Bilirubin 0.6 AST 41 H ALT 22 Alkaline Phosphatase 95 Troponin I Handheld Total Protein 6.2 Albumin 3.4 L Globulin 2.8 Albumin/Globulin Ratio 1.20 L Ur Collection Type Cath specimen Urine Color Yellow Urine Clarity Slightly cloudy Urine pH 6.0 Ur Specific [place] 1.015 Urine Protein 100 A Urine Glucose (UA) >=1000 Urine Ketones 15 Urine Occult Blood Moderate H Urine Nitrate Positive A Urine Bilirubin Negative Urine Urobilinogen 0.2 Ur Leukocyte Esterase Small Urine RBC 1-3 Urine WBC 35-40 Ur Squamous Epith Cells Rare Ur Renal Epithelial Cell None Urine Crystals None Urine Bacteria Many H Urine Casts None Urine Mucus Few Urine Trichomonas None Urine Yeast None Ur Culture Indicated? Culture set Acetone Level History and Physical pertinent to Admission: Course of Hospitalization: See H&P. In short patient was admitted with a UTI and bacterial vaginosis from the ER. Was treated for both. White count improved patient is adamant about being discharged home. I will send her home with Augmentin by mouth twice a day for 7 days and Flagyl 500 by mouth twice a day for 7 days. She was given 1 fluconazole while in the hospital was rehydrated and she is back to her normal self most likely the generalized weakness was from her Ambien. I told her to discontinue it On the date of discharge, the patient was examined: Gen.: No acute distress, alert, nontoxic Heart: Regular rate and rhythm, no murmurs, clicks, gallops, or rubs Lungs: Clear to auscultation bilaterally, breathing is nonlabored Abdomen/GI: Normal tones on auscultation, soft, nontender, nondistended Musculoskeletal/extremities: No clubbing, cyanosis, or edema Vitals reviewed and are listed below Vital Signs (24 hrs) 04/11/18 00:01 04/11/18 00:10 04/11/18 00:20 Temperature 100.8 F H 100.8 F H Pulse Rate 95 Pulse Rate [Pulse Oximeter] 94 Respiratory Rate 22 18 Blood Pressure 102/57 Blood Pressure [Right Arm] Pulse Ox 92 04/11/18 00:44 04/11/18 03:00 04/11/18 03:54 Temperature 98.5 F 98.0 F Pulse Rate 91 Pulse Rate [Pulse Oximeter] 94 84 Respiratory Rate 18 20 Blood Pressure Blood Pressure [Right Arm] 106/65 119/71 Pulse Ox 91 94 04/11/18 04:56 04/11/18 06:53 Temperature 98 F Pulse Rate Pulse Rate [Pulse Oximeter] 91 Respiratory Rate 20 Blood Pressure Blood Pressure [Right Arm] 109/70 Pulse Ox 94 93 Assessment and Plan: 1. As per discharge assessments above 2. Disposition: Home 3. Condition on discharge, stable and improved. 4. Diet: Diabetic diet 5. Activities: resume normal activities 6. Follow-Up: 1. PCP 2. 7. Medications at the Time of Discharge: Home Medications Medication Instructions Recorded Confirmed Type Oxygen (O2) 1 unit INH DAILY unit 10/06/16 04/11/18 History mesalamine ER 0.375 gram 1.5 g PO QAM 01/02/17 04/11/18 History capsule,extended release 24 hr lisinopril 20 1 tab PO QDAY #90 tab 03/16/17 04/11/18 Rx mg-hydrochlorothiazide 12.5 mg tablet Pen Needle, Diabetic [Ulticare Pen 0 amp .ROUTE .MEDSUPPLY 07/02/17 04/11/18 History Needle] promethazine 25 mg tablet 25 mg PO Q6H PRN #20 tab 07/07/17 04/11/18 Rx nystatin 100,000 unit/gram topical 1 applic TOPICAL BID #60 ea 07/24/17 04/11/18 Rx powder blood sugar diagnostic strips See Rx Instructions MISCELLANEOUS 09/03/17 04/11/18 Rx QD #1 bottle pantoprazole 40 mg tablet,delayed 40 mg PO QDAY #30 tab 09/30/17 04/11/18 Rx release insulin glargine (U-100) 100 12 unit SUBCUT QHS #15 ml 10/09/17 04/11/18 Rx unit/mL (3 mL) subcutaneous pen diphenoxylate-atropine 2.5 1 tab PO Q6-8H PRN #20 tab 11/20/17 04/11/18 Rx mg-0.025 mg tablet saxagliptin 5 mg tablet 5 mg PO QDAY #30 tab 12/14/17 04/11/18 Rx allopurinol 100 mg tablet 100 mg PO QDAY #90 tab 12/31/17 04/11/18 Rx cyclobenzaprine 10 mg tablet 10 mg PO TID PRN #30 tab 03/19/18 04/11/18 Rx fluoxetine 40 mg capsule 40 mg PO QDAY #30 cap 04/05/18 04/11/18 Rx celecoxib 200 mg capsule 200 mg PO QDAY #1 cap 04/09/18 04/11/18 Clinic gabapentin 300 mg capsule 300 mg PO QDAY #30 cap 04/09/18 04/11/18 Rx oxybutynin chloride ER 10 mg 10 mg PO QDAY #30 tab 04/09/18 04/11/18 Rx tablet,extended release 24 hr Amoxicill/Clav 875/125mg 1 each PO BID #14 tablet 04/11/18 Rx [Augmentin 875/125mg] Metronidazole 500 mg PO BID #14 tablet 04/11/18 Rx 8. Time, care, counseling and coordination of care for this discharge is greater than 30 minutes. Exam - Vitals Vital Signs: Vital Signs Temperature 98 F Temperature Source Temporal Artery Scan Pulse Rate [Pulse Oximeter] 91 Pulse Rate 91 Respiratory Rate 20 Blood Pressure [Right Arm] 109/70 Blood Pressure 102/57 Pulse Ox 93 Oxygen Flow Rate 2 Oxygen Delivery Method Nasal Cannula Height 5 ft 2 in Weight 240 lb Patient Problems - Patient Problem List (1) Vaginosis Current Visit: Yes Status: Acute Code(s): N76.0 - Acute vaginitis Category: Medical (2) UTI (urinary tract infection) Current Visit: Yes Status: Acute Code(s): N39.0 - Urinary tract infection, site not specified Qualifiers: Urinary tract infection type: acute cystitis Hematuria presence: without hematuria Qualified Code(s): N30.00 - Acute cystitis without hematuria Category: Medical (3) Diabetes mellitus, type 2 Current Visit: No Status: Chronic Onset Date: Qualifiers: Category: Medical (4) Earnestine albicans infection Current Visit: Yes Status: Acute Code(s): B37.9 - Candidiasis, unspecified Category: Medical
[2018-04-11 11:30] VITALS: BP 117/66; RESP 19; TEMP 98.7; O2SAT 90
[2018-04-11] MEDS ORDERED: Insulin Glargine SoloStar Inj 100 UNIT/ML INSULN.PEN SUBCUT SCH (21:00)
[2018-04-12] MEDS ORDERED: cefTRIAXone Inj 2 GM in Sodium Chloride 0.9% 100 ML IV SCH ×2
== END 2018-04-11 12:35 | disposition home or self-care (01) | DRG 690 ==
LOC: ER 22:02 → MED/SURG 23:59
PROVIDERS: ADMIT Internal Medicine; ATTEND Internal Medicine